=== PATIENT | female | born 1975 | race Caucasian/White ===

== ENCOUNTER 2019-03-18 06:15 | Day surgery (SDC) | payer OTHER, SELFPAY ==
[2019-03-18 06:30] VITALS: BP 102/68; PULSE 76; RESP 16; TEMP 36.6; O2SAT 100
[2019-03-18] MEDS: Lactated Ringers 1,000 ML 80 ML IV (06:55)
--- NOTE | 2019-03-18 07:32 | W.PM.DSUDISC ---
Discharge Plan Disposition Patient Disposition: HOME Condition: Good Discharge Details Reason For Visit: Fistulotomy, internal hemorrhoid banding Attending Provider: Tresa White Primary Care Provider: Lisa Pearl Home Meds and New Rx's Prescriptions: Continued betamethasone dipropionate 0.05 % cream 1 applic TP BID PRNRF: 0 levothyroxine [Synthroid] 50 mcg tablet 50 mcg PO DAILY RF: 0 buspirone 7.5 mg tablet 7.5 mg PO BID RF: 0 cholecalciferol (vitamin D3) 1,000 unit capsule 1,000 unit PO DAILY RF: 0 aripiprazole [Abilify] 5 mg tablet 5 mg PO HS RF: 0 sertraline [Zoloft] 50 mg tablet 50 mg PO HS RF: 0 Discharge Instructions Additional Instructions: An internal hemorrhoid was banded. There may be a small amount of bleeding when the tissue sloughs in a few days. Contact the surgeon office nurse practitioner for significant issues with bleeding. A fistula tunnel was opened. There is an open wound and then a small suture that encircles the sphincter muscle. This will stay in place for 4-6 weeks as the wound heals. Remove the packing tomorrow, then do a sitz bath and then repack with the strip of gauze provided. Keep a pad in your underwear as drainage is expected. Call for any concerns including fever, increased pain. Do not drive if on narcotic pain meds or if limited by pain. May use Tylenol alternating with ibuprofen for pain control. Ice is also an option. The maximum dose for Tylenol is 4000 mg/day. May use ibuprofen 800 mg every 8 hours as needed. If concerned about constipation, you may use a stool softener or milk of magnesia. Referrals: Tresa White MD [ [facility] STAFF PHYSICIAN] - (Return on 03/24 for a recheck) Activity:: Activity as Tolerated Shower/Bathe:: 24 hours Diet:: As Tolerated Discharge Orders Discharge Orders: Discharge Order (Routine); Ordered 03/18/19 Ordered By: Tresa White DS: Diagnosis Discharge Diagnosis (1) Anal fistula: Status: Acute (2) Internal hemorrhoids: Status: Acute
[2019-03-18] MEDS: Bupivacaine LIPOSOME/PF 133 MG/10 ML VIAL IJ (08:06)
[2019-03-18 08:50] VITALS: BP 98/61; PULSE 68; RESP 16; TEMP 36.3; O2SAT 100
[2019-03-18 09:50] VITALS: BP 110/70; PULSE 77; RESP 16; TEMP 36.5; O2SAT 100
--- NOTE | 2019-03-18 13:33 | ROE_ITS ---
DATE OF PROCEDURE: March 18, 2019 PREOPERATIVE DIAGNOSIS: 1. Possible anal fistula. 2. Internal hemorrhoid. POSTOPERATIVE DIAGNOSIS: 1. Anal fistula. 2. Internal hemorrhoid. PROCEDURE: 1. Anal exam under anesthesia. 2. Fistulotomy with Seton placement. 3. Internal hemorrhoid banding. SURGEON: Tresa White M.D. ANESTHESIA: Spinal and sedation. INDICATIONS: This is a 43-year-old woman who reports a perianal boil that will intermittently fill u p and drain about once a week. This has been ongoing since April. She also has a bothersome prola psing internal hemorrhoid. PROCEDURE: The patient was taken to the Operating Room and had a spinal anesthetic placed. She was then carefully positioned into the prone position and given IV sedation. The buttocks were taped for better exposure and the perianal region prepped with Betadine. She was then draped sterilely. Ther e was a small skin opening in the left lateral location that had almost healed over. Palpation inter gavin did not reveal any masses or abscesses. The anoscope was placed. A small lacrimal probe was i nserted into the external skin opening and easily passed internally to the dentate line, consistent w ith a fistula. This was fairly superficial externally. The spinal anesthetic had been tested and sh e had good anesthesia. The skin over the fistula probe was opened with cautery until the sphincter m echanism was reached. There was not a lot of sphincter involved, but as a precaution I did not divid e it. The sphincter was encircled with a #0 Vicryl, which was tied to create a Seton. The fistula t ract was only about 2 cm long. I sharply excised the chronic granulation and scar down to healthy fa t. This was packed with a 1/4-inch Iodoform. The patient did indeed have a quite large prolapsing h emorrhoid in the same vicinity. This was banded with the suction hemorrhoid occup therapist. I then injected 10 mg of Exparel around the fistulotomy incision and around the hemorrhoid banding site. There was good hemostasis. She tolerated the procedure well and was stable to recovery. cc: Zarina Portillo.
== END 2019-03-18 10:25 | disposition home or self-care (01) ==
PROVIDERS: PCP Physician Assistant Medical; Visit Provider Surgery
PROC: (CPT 46280; principal; 2019-03-18 07:30)
PROC: (CPT 46280; 2019-03-18 07:30)
DX: K60.3 Anal fistula (principal); K64.8 Other hemorrhoids; K58.9 Irritable bowel syndrome, unspecified
CPT/HCPCS: 46280; 46221; J2250

== ENCOUNTER 2019-10-01 21:46 | Outpatient (REF) | payer OTHER, SELFPAY ==
[2019-10-01 20:54] LABS: TSH 1.17 uIU/mL (0.36-3.74)
== END 2019-10-01 22:06 ==
LOC: NCHCN 21:46
PROVIDERS: PCP Physician Assistant Medical; Visit Provider Physician Assistant Medical
DX: E03.9 Hypothyroidism, unspecified (principal)
CPT/HCPCS: 84443

== ENCOUNTER 2020-02-10 00:49 | Outpatient (CLI) | payer OTHER, SELFPAY ==
--- NOTE | 2020-02-10 | DI.US_ITS ---
EXAM: US PELVIS TRANSVAGINAL CLINICAL HISTORY: IRREGULAR MENSTRUATION,N92.6 TECHNIQUE: Transabdominal and transvaginal imaging was performed using standard protocol. COMPARISON: No exams were available for comparison FINDINGS: KIDNEYS: Kidneys are symmetric in size. No evidence of renal calculi. No evidence of hydronephrosis. No renal mass or cyst identified. UTERUS: Anteverted. 11.6 x 4.6 x 7.4 cm. Endometrium: 2.7 cm. Heterogeneous. Myometrium: Unremarkable. Cervix: Unremarkable. OVARIES: Right: Cyst or mass: None. Left: Cyst or mass: None. Dominant follicle left ovary. DOPPLER: Color: Symmetric and uniform flow to both ovaries. No hyperemia. Duplex: Normal ovarian arterial waveforms visualized. CUL-DE-SAC: Free fluid: None. IMPRESSION: 1. Thickened heterogeneous endometrium.. 2. Unremarkable bilateral ovaries. DATA REPOSITORY:
== END 2020-02-10 01:09 ==
PROVIDERS: PCP Physician Assistant Medical; Visit Provider Nurse Practitioner Family
DX: N92.6 Irregular menstruation, unspecified (principal); R93.89 Abnormal findings on diagnostic imaging of other specified body structures
CPT/HCPCS: 76830; 76856

== ENCOUNTER 2020-03-01 14:37 | Outpatient (REF) | payer OTHER, SELFPAY ==
--- NOTE | 2020-03-01 13:55 | ENDO_PTH ---
PATIENT: Annette Hernández LOC: [facility] U#:[id number] AGE/SX: 44/F ROOM: RE03/01/[address]: Dereck Larose MD : 1975 BED: DIS: 03/01/2020 SPEC #: [id number] RECD: 03/01/20 15:21 STATUS: ARIANNA REQ #: [id number] PORTIA: 03/01/20 13:[address]: Dereck Larose DEPT: Surgical Specimen RECD BY: Mine Regalado ENTERED: 03/01/20 15:22 SP TYPE: Endo OTHR DR: Lisa Pearl Tissues: 1 - ENDOCERVICAL BX/CURRETTE Procedures: GROSS AND MICRO LEVEL 4 Comments: [id number]
== END 2020-03-01 14:57 ==
LOC: LBN 14:37
PROVIDERS: PCP Physician Assistant Medical; Visit Provider Obstetrics & Gynecology
DX: N93.9 Abnormal uterine and vaginal bleeding, unspecified (principal)
CPT/HCPCS: 88305

== ENCOUNTER 2020-05-03 10:32 | Outpatient (REF) | payer OTHER, SELFPAY ==
--- NOTE | 2020-05-03 09:30 | PAPFT_PTH ---
PATIENT: Annette Hernández LOC: [facility] U#:[id number] AGE/SX: 44/F ROOM: RE05/03/[address]: ARACELI Vidal : 1975 BED: DIS: 05/03/2020 SPEC #: [id number] RECD: 05/03/20 12:57 STATUS: ARIANNA REFlores #: [id number] PORTIA: 05/03/20 09:[address]: Nelly Dorman DEPT: [facility] Cytology RECD BY: Lizeth Arroyo ENTERED: 05/03/20 12:57 SP TYPE: PAPFT OTHR DR: Lisa Pearl Tissues: 1 - CX/ENDOCX FOR PAP SMEARS Procedures: PAP THIN PREP/UVM Screening HPV DNA PROBE Comments: [id number]
== END 2020-05-03 10:52 ==
LOC: LBN 10:32
PROVIDERS: PCP Physician Assistant Medical; Visit Provider Nurse Practitioner Family
DX: Z12.4 Encounter for screening for malignant neoplasm of cervix (principal); Z11.51 Encounter for screening for human papillomavirus (HPV)
CPT/HCPCS: 88142; 87624

== ENCOUNTER 2020-05-19 01:13 | Outpatient (CLI) | payer OTHER, SELFPAY ==
--- NOTE | 2020-05-19 08:15 | DI.US_ITS ---
EXAM: US PELVIS TRANSVAGINAL CLINICAL HISTORY: Abn vag bleeding, Pt had IUD inserted 03/22/20,N93.9,STRINGS NOT SEEN TECHNIQUE: Transabdominal and transvaginal imaging was performed using standard protocol. COMPARISON: No exams were available for comparison FINDINGS: KIDNEYS: Kidneys are symmetric in size. No evidence of renal calculi. No evidence of hydronephrosis. No renal mass or cyst identified. UTERUS: Anteverted. 11.4 x 5.1 x 6.0 cm. Endometrium: 12 millimeters in thickness. IUD is seen within the endometrium and appears appropriate ly positioned. Myometrium: Unremarkable. Cervix: Unremarkable. OVARIES: Right: Cyst or mass: None. Left: Cyst or mass: 1.7 centimeter dominant follicle DOPPLER: Color: Symmetric and uniform flow to both ovaries. No hyperemia. Duplex: Normal ovarian arterial waveforms visualized. CUL-DE-SAC: Free fluid: None. IMPRESSION: 1. Normal-appearing uterus with endometrial stripe within normal limits. IUD is seen within the endo metrial cavity. 2. Unremarkable bilateral ovaries. DATA REPOSITORY:
== END 2020-05-19 01:33 ==
PROVIDERS: PCP Physician Assistant Medical; Visit Provider Nurse Practitioner Family
DX: N93.9 Abnormal uterine and vaginal bleeding, unspecified (principal); Z97.5 Presence of (intrauterine) contraceptive device
CPT/HCPCS: 76830; 76856

== ENCOUNTER 2020-06-30 02:07 | Outpatient (CLI) | payer OTHER, SELFPAY ==
--- NOTE | 2020-06-30 11:45 | DI.MAMMO_ITS ---
EXAM: MG MAMMO SCREENING CLINICAL HISTORY: SCREENING, HEALTH MAINTENANCE, Z00.8 TECHNIQUE: Bilateral full field digital CC and MLO mammographic images were obtained with 3D tomosyn thesis and utilizing computer aided detection (CAD). COMPARISON: Available for comparison. FINDINGS: Masses/Architectural Distortion: None seen. Microcalcifications: No suspicious pleomorphic-type are seen. Skin Thickening/Nipple Retraction: None. IMPRESSION: 1. No significant interval change with no specific features of malignancy noted. 2. Unless there is more urgent need, screening mammography is recommended, as per [employer] guidelines. BI-RADS Category 1 - Negative Breast Density - Category D - Extremely dense Breast density category C or D implies that the patient has dense breast tissue. Dense breast tissue is very common and is not abnormal but dense breast tissue can make it harder to find cancer on a ma mmogram. Also, dense breast tissue may increase their breast cancer risk. This information about the result of the mammogram report was provided to the patient to raise their awareness. Use this report when you speak with the patient about their risks for breast cancer, which includes their family hist ory. At that time, you may recommend for more screening tests (Ultrasound or MRI) as they might be us eful based on their risk. A negative radiographic report should not delay biopsy if a dominant or clinically suspicious mass is present. Up to ten percent of cancers are not identified on mammography. A negative report may reinforce clinical impression. Adenosis and dense breasts may obscure an underlying neoplasm. False positive reports average 6 to 10%. Patient will receive a letter notifying them of these results.
== END 2020-06-30 02:27 ==
PROVIDERS: PCP Physician Assistant Medical; Visit Provider Physician Assistant Medical
DX: Z00.00 Encounter for general adult medical examination without abnormal findings (principal); Z12.31 Encounter for screening mammogram for malignant neoplasm of breast
CPT/HCPCS: 77063; 77067

== ENCOUNTER 2020-09-08 08:24 | Outpatient (REF) | payer OTHER, SELFPAY ==
[2020-09-08 16:31] LABS: Anion Gap 10.1 mmol/L (3-11); BUN 21 mg/dL (7-18); CO2 25.9 mmol/L (21.0-32.0); CREATININE 0.9 mg/dL (0.55-1.02); Calcium 8.9 mg/dL (8.5-10.1); Calculated LDL 126 mg/dL (<100); Chloride 107 mmol/L (98-107); Cholesterol 195 mg/dL (<200); Glucose 84 mg/dL (74-106); HDL Cholesterol 64 mg/dL (40-60); Potassium 4.2 mmol/L (3.5-5.1); Sodium 143 mmol/L (136-145); TSH 1.06 uIU/mL (0.36-3.74); Triglyceride 25 mg/dL (<150)
== END 2020-09-08 08:25 | disposition home or self-care (01) ==
LOC: NCHCN 08:24
PROVIDERS: PCP Physician Assistant Medical; Visit Provider Physician Assistant Medical
DX: Z00.00 Encounter for general adult medical examination without abnormal findings (principal); E03.9 Hypothyroidism, unspecified; Z13.220 Encounter for screening for lipoid disorders; Z13.228 Encounter for screening for other metabolic disorders
CPT/HCPCS: 80048; 80061; 84443

== ENCOUNTER 2020-10-29 08:34 | Outpatient (REF) | payer OTHER, SELFPAY ==
[2020-10-29 21:14] LABS: Iron 126 ug/dL (50-170)
[2020-10-29 21:40] LABS: Vitamin D 25 Total 53.1 ng/mL (30-100)
[2020-10-29 21:41] LABS: Folate > 20.0 ng/mL (8.6-20.0); Vitamin B12 701 pg/mL (193-986)
== END 2020-10-29 08:35 | disposition home or self-care (01) ==
LOC: NCHCN 08:34
PROVIDERS: PCP Physician Assistant Medical; Visit Provider Nurse Practitioner Family
DX: K14.6 Glossodynia (principal); K14.8 Other diseases of tongue; R79.0 Abnormal level of blood mineral; E55.9 Vitamin D deficiency, unspecified
CPT/HCPCS: 82306; 82607; 82746; 83540

== ENCOUNTER 2021-07-13 15:18 | Outpatient (REF) | payer OTHER, SELFPAY ==
[2021-07-13 20:36] LABS: Creatine Kinase 86 U/L (26-192); TSH 1.03 uIU/mL (0.36-3.74)
== END 2021-07-13 15:19 | disposition home or self-care (01) ==
LOC: NCHCN 15:18
PROVIDERS: PCP Physician Assistant Medical; Visit Provider Physician Assistant Medical
DX: E03.9 Hypothyroidism, unspecified (principal); M79.631 Pain in right forearm
CPT/HCPCS: 82550; 84443

== ENCOUNTER 2021-08-11 01:13 | Outpatient (CLI) | payer OTHER, SELFPAY ==
--- NOTE | 2021-08-11 | DI.US_ITS ---
Exam(s) US THYROID EXAM: US THYROID CLINICAL HISTORY: MULTIPLE THYROID NODULES E04.2. TECHNIQUE: Ultrasound thyroid performed using standard protocol. COMPARISON: There are no previous exams available at the time of this interpretation FINDINGS: RIGHT THYROID LOBE: Measures 2.1 cm AP x 2.1 cm wide x 4.8 cm craniocaudal The right lobe is almost entirely occupied by a mixed solid-cystic nodule described below: Nodule #1 Size: Measures 2 x 2 x 3.6 cm Composition: Mixed cystic-solid = 1 point Echogenicity: Isoechoic= 1 point Shape: Not truly taller than wider in the transverse plane= therefore 0 points Margin: Smooth- 0 points Echogenic Foci: None= 0 points Total Points for this nodule: 2 ACR Ti-Rads Category: TR2 ISTHMUS: Normal thickness. There are no nodules in the isthmus. LEFT THYROID LOBE: Measures 1.5 cm AP x 1.5 wide x 2.6 cm craniocaudal The left thyroid lobe is smaller than the right. However, in similar fashion it is almost completely occupied by a similar appearing mixed solid-cystic nodule, as described below: Nodule #1 Size: Measures 1.2 x 1.2 x 2.0 cm Composition: Mixed zoarv-ujoglq-1 points Echogenicity: Isoechoic-1 points Shape: Not truly taller than wider in the transverse plane-0 points Margin: Smooth-0 points Echogenic Foci: None-0 points Total points for this nodule: 2 ACR Ti-Rads Category: 2 LYMPH NODES: There is no significant adenopathy. IMPRESSION: 1. Similar-appearing solid-cystic nodule in both lobes as described above. Both are classified as Ti Rads-2 and therefore do not require ultrasound-guided FNA at this time. Recommend comparison to prior outside ultrasound examinations. 2. There is no significant lymphadenopathy. DATA REPOSITORY:
--- NOTE | 2021-08-11 12:40 | DI.MAMMO_ITS ---
Exam(s) MAMMO SCREENING EXAM: MAMMO SCREENING CLINICAL HISTORY: SCREENING FOR BREAST CANCER Z12.31 FAM HX Z80.3. TECHNIQUE: Bilateral full field digital CC and MLO mammographic images were obtained with 3D tomosyn thesis and utilizing computer aided detection (CAD). COMPARISON: Prior mammograms were reviewed, the most recent being June 2020. Significant family history. Her mother was diagnosed with breast cancer postmenopausal. FINDINGS: Fibroglandular tissue pattern is again noted be dense, this somewhat decreasing the sensitivity of th e mammogram for finding hidden underlying lesions. There are no new spiculated masses evident. Asymmetric density right breast approximately 12 o'clock position seen on 3D cc imaging is unchanged from prior studies. Numerous benign-appearing microcalcifications are again noted in both breasts. There are no new malignant-appearing microcalcification groups in either breast. There is no significant architectural distortion nor skin thickening-retraction. IMPRESSION: Very dense bilateral fibroglandular tissue. Stable benign-appearing findings. No obvious radiograph ic evidence of malignancy. BI-RADS Category 2 - Benign Findings Breast Density - Category D - Extremely dense Breast density Category C or D implies that the patient has dense breast tissue. Dense breast tissue can make it harder to find cancer on a mammogram. Dense breast tissue is also associated with an incr eased risk of breast cancer. This information about the result of the mammogram report was provided to the patient to raise their awareness. Use this report when you speak with the patient about their risks for breast cancer, which includes their family history. At that time, you may recommend additional screening tests (Ultrasoun d or MRI) as these tests may add significant information. A negative radiographic report should not delay biopsy if a dominant or clinically suspicious mass is present. Up to ten percent of cancers are not identified on mammography. A negative report may reinforce clinical impression. Adenosis and dense breasts may obscure an underlying neoplasm. False positive reports average 6 to 10%. Patient will receive a letter notifying them of these results.
== END 2021-08-11 01:33 ==
PROVIDERS: PCP Physician Assistant Medical; Visit Provider Physician Assistant Medical
DX: Z12.31 Encounter for screening mammogram for malignant neoplasm of breast (principal); Z80.3 Family history of malignant neoplasm of breast; N60.81 Other benign mammary dysplasias of right breast; N60.82 Other benign mammary dysplasias of left breast; E04.2 Nontoxic multinodular goiter
CPT/HCPCS: 77063; 77067; 76536

== ENCOUNTER 2022-04-12 15:03 | Outpatient (REF) | payer OTHER, SELFPAY ==
[2022-04-12 19:55] LABS: Abs Immature Grans 0.01 10^3/uL (0.0-0.06); Absolute Basophil Count 0.03 10^3/uL (0.0-0.2); Absolute Eosinophil Count 0.12 10^3/uL (0.0-0.7); Absolute Lymphocyte Count 2.09 10^3/uL (1.2-3.4); Absolute Monocyte Count 0.27 10^3/uL (0.1-0.8); Absolute Neutrophil Count 3.18 10^3/uL (1.2-6.7); Basophils % 0.5; Eosinophils % 2.1; Immature Grans % 0.2; Lymphocytes % 36.7; MCH 30.3 pg (27.0-33.0); MCHC 34.1 % (32.0-36.0); MCV 89 fL (80-95); MPV 10.9 fL (8.0-11.0); Monocytes % 4.7; Neutrophils % 55.8; Platelet Count 206 10^3/uL (130-400); RBC 4.62 10^6/uL (3.93-5.22); RDW 12.1 % (11.7-14.6); RDW-SD 39.4 fL
[2022-04-12 20:11] LABS: ALT 24 U/L (14-59); AST 27 U/L (15-37); Albumin 3.9 g/dL (3.4-5.0); Alkaline Phosphatase 80 U/L (46-116); Anion Gap 7.8 mmol/L (3-11); BUN 20 mg/dL (7-18); Bilirubin, Total 0.4 mg/dL (0.2-1.0); CO2 27.2 mmol/L (21.0-32.0); CREATININE 0.9 mg/dL (0.55-1.02); Calcium 8.8 mg/dL (8.5-10.1); Chloride 105 mmol/L (98-107); Estimated GFR 78.86 (mL/min/1.73m2); Glucose 169 mg/dL (74-106); Potassium 3.4 mmol/L (3.5-5.1); Sodium 140 mmol/L (136-145); Total Protein 7.2 g/dL (6.4-8.2)
== END 2022-04-12 15:04 | disposition home or self-care (01) ==
LOC: NCHCN 15:03
PROVIDERS: PCP Physician Assistant Medical; Visit Provider Physician Assistant Medical
DX: M25.512 Pain in left shoulder (principal); E03.9 Hypothyroidism, unspecified
CPT/HCPCS: 80053; 85025

== ENCOUNTER 2022-07-25 15:45 | Outpatient (REF) | payer OTHER, SELFPAY ==
[2022-07-25 18:49] LABS: Hemoglobin A1C 5.5 % (<5.7)
[2022-07-25 19:00] LABS: Anion Gap 10.8 mmol/L (3-11); BUN 19 mg/dL (7-18); CO2 26.2 mmol/L (21.0-32.0); CREATININE 0.9 mg/dL (0.55-1.02); Calcium 8.8 mg/dL (8.5-10.1); Calculated LDL 128 mg/dL (<100); Chloride 109 mmol/L (98-107); Cholesterol 204 mg/dL (<200); Estimated GFR 78.37 (mL/min/1.73m2); Glucose 105 mg/dL (74-106); HDL Cholesterol 57 mg/dL (40-60); Potassium 3.6 mmol/L (3.5-5.1); Sodium 146 mmol/L (136-145); TSH 1.22 uIU/mL (0.36-3.74); Triglyceride 96 mg/dL (<150)
== END 2022-07-25 15:46 | disposition home or self-care (01) ==
LOC: NCHCN 15:45
PROVIDERS: PCP Physician Assistant Medical; Visit Provider Physician Assistant Medical
DX: R73.9 Hyperglycemia, unspecified (principal); Z00.00 Encounter for general adult medical examination without abnormal findings; Z13.220 Encounter for screening for lipoid disorders; E03.9 Hypothyroidism, unspecified
CPT/HCPCS: 80048; 80061; 83036; 84443

== ENCOUNTER 2022-08-14 00:36 | Outpatient (CLI) | payer OTHER, SELFPAY ==
--- NOTE | 2022-08-14 | DI.MAMMO_ITS ---
Exam(s) MAMMO SCREENING EXAM: MAMMO SCREENING CLINICAL HISTORY: SCREENING MAMMO FOR BREAST CANCER Z12.31 TECHNIQUE: Bilateral full field digital CC and MLO mammographic images were obtained with 3D tomosyn thesis and utilizing computer aided detection (CAD). COMPARISON: Available for comparison. FINDINGS: Masses/Architectural Distortion: None seen. Microcalcifications: No suspicious pleomorphic-type are seen. Benign type calcifications are seen in both breasts. These appear stable. Skin Thickening/Nipple Retraction: None. IMPRESSION: 1. No significant interval change with no specific features of malignancy noted. 2. Unless there is more urgent need, screening mammography is recommended, as per [place] guidelines. BI-RADS Category 2 - Benign Findings Breast Density - Category D - Extremely dense Breast density category C or D implies that the patient has dense breast tissue. Dense breast tissue is very common and is not abnormal but dense breast tissue can make it harder to find cancer on a ma mmogram. Also, dense breast tissue may increase their breast cancer risk. This information about the result of the mammogram report was provided to the patient to raise their awareness. Use this report when you speak with the patient about their risks for breast cancer, which includes their family hist ory. At that time, you may recommend for more screening tests (Ultrasound or MRI) as they might be us eful based on their risk. A negative radiographic report should not delay biopsy if a dominant or clinically suspicious mass is present. Up to ten percent of cancers are not identified on mammography. A negative report may reinforce clinical impression. Adenosis and dense breasts may obscure an underlying neoplasm. False positive reports average 6 to 10%. Patient will receive a letter notifying them of these results.
== END 2022-08-14 00:56 ==
LOC: DI 00:36
PROVIDERS: PCP Physician Assistant Medical; Visit Provider Physician Assistant Medical
DX: Z12.31 Encounter for screening mammogram for malignant neoplasm of breast (principal)
CPT/HCPCS: 77063; 77067

== ENCOUNTER 2022-12-06 06:13 | Day surgery (SDC) | payer OTHER, SELFPAY ==
[2022-12-06 06:27] VITALS: BP 109/78; PULSE 65; RESP 18; TEMP 36.4; O2SAT 99
--- NOTE | 2022-12-06 07:16 | W.PM.DSUDISC ---
Date of service: 12/06/22 Time of Service: 07:17 Discharge Plan Disposition Patient Disposition: Home Condition: Good Discharge Details Reason For Visit: LMF trigger release Attending Provider: Tan Arthur Primary Care Provider: Lisa Pearl Home Meds and New Rx's Prescriptions: New acetaminophen 500 mg tablet 1,000 mg PO TID Qty: 90 0RF ibuprofen 600 mg tablet 600 mg PO TID PRN (Reason: pain) Qty: 90 0RF Continued levothyroxine [Synthroid] 50 mcg tablet 50 mcg PO DAILY buspirone 7.5 mg tablet 7.5 mg PO BID cholecalciferol (vitamin D3) 1,000 unit capsule 1,000 unit PO DAILY sertraline [Zoloft] 50 mg tablet 50 mg PO HS Mirena 21 mcg/24 hours (8 yrs) 52 mg intrauterine device 1 device intrauterine ONCE Rx Instructions: as a single dose trazodone 50 mg tablet 25 mg PO QHS PRN (Reason: sleep) Qty: 1 0RF Discharge Instructions Stand Alone Forms: Sandhya Small Finger Dean Activity:: Activity as Tolerated Remove Dressings/Wound Care:: 48 hours Shower/Bathe:: 48 hours Diet:: As Tolerated Discharge Orders Discharge Orders: Discharge Order (Routine); Ordered 12/06/22 Ordered By: Remy Joy
[2022-12-06] MEDS: Sodium Bicarbonate 50 MEQ/50 ML VIAL (07:29)
[2022-12-06] MEDS: Lidocaine 1% Pres-Free W/EPI 1/200,000 30 ML VIAL (07:29)
[2022-12-06 08:00] VITALS: BP 112/76; PULSE 68; RESP 18; TEMP 36.3; O2SAT 98
--- NOTE | 2022-12-06 16:52 | ROE_ITS ---
Date of service: 12/06/22 Time of Service: 07:45 Operative Note Operative Note DATE OF PROCEDURE: 12/06/22 PRE-OP DIAGNOSIS: Left Middle Finger Trigger Finger POST-OP DIAGNOSIS: same PROCEDURE: Trigger Finger Release - Left Middle Finger SURGEON: Tan Arthur ANESTHESIA TYPE: Local By Surgeon Refer to Anesthesia Record ESTIMATED BLOOD LOSS: 0 PATHOLOGY: none sent COMPLICATIONS: None Patient was transported to: same day Patient's condition: stable Indications: I have seen Annette in clinic for symptoms of a trigger finger. The catching, c licking, locking, and pain limited function. The diagnosis of trigger finger was evident. The symptoms had not responded to conservative measures. I discussed trigger finger release with the patient. I reviewed the risks of the procedure to include, but not limited to, bleeding, infection, pain, stiffness, incomplete release, damage to nerves or vessels, continued catching, recurrence. Despite these risks, the patient elected to proceed. Findings: There was a tightened A1 ken which was released. The flexor tendons were inspected and the patient was able to move the finger without any catching, clicking, or locking. Procedure Description: Annette was greeted in the preoperative holding area where the correct side was identified and marked. The consent was reviewed with the patient and signed. All questions were answered. Annette was taken back to the operating room. The patient was placed into the supine position on the operating room table with the left arm on an arm board. All bony prominences were well padded. No prophylactic antibiotics were administered since this was a clean, elective hand surgical case. The left arm was then prepped with Chloraprep and draped in a standard fashion with stockinette and extremity drape. A timeout to confirm correct identity, side a nd site, procedure, allergies, anesthesia, and medical concerns was performed. The surgical site was marked as an incision in the distal palmar crease over the A1 ken of the involved digit. This was confirmed with palpation during finger flexion. This area, overlying the metacarpal head, was then anesthetized with 1% Lidocaine with Epinephrine and buffered with sodium bicarbonate. The patient tolerated this well and once the anesthetic had setup, the procedure began. A longitudinal incision was made through skin only, approximately 1cm. The deep tissues were dissected bluntly. Once the A1 ken and flexor tendons were identified the soft tissue including neurovascular structures were retracted medially and laterally. There were no crossing structures over the A1 ken. The proximal edge of the ken was identified and the ken was incised with tenotomy scissors. There was a release of the tendons once this was fully released. The tendons were then removed from the wound and inspected. Excess synovium was resected. The tendons were then returned and the patient was asked to move the finger into deep flexion and back to extension. There was no recreation of the pre-operative symptoms. The hand was then once more inspected for any A0 ken or area of possible constriction. The wound was then irrigated and the skin was closed with a 4-0 Nylon. This was dressed with gauze and a Conform dressing. The patient tolerated the procedure well and was returned to the Same Day Surgery area in a stable condition suffering no known complication.
== END 2022-12-06 08:10 | disposition home or self-care (01) ==
PROVIDERS: PCP Physician Assistant Medical; Visit Provider Student in an Organized Health Care Education/Training Program
PROC: (CPT 26055; principal; 2022-12-06 07:30)
DX: M65.352 Trigger finger, left little finger (principal)
CPT/HCPCS: 26055

== ENCOUNTER → 2023-05-08 02:07 | Outpatient (CLI) | payer OTHER, SELFPAY ==
--- NOTE | 2023-05-08 | DI.RAD_ITS ---
Exam(s) XR HAND RT COMPLETE EXAM: XR HAND RT COMPLETE CLINICAL HISTORY: MULTIPLE JOINT PAIN,M25.50. TECHNIQUE: 2D digital imaging was performed. Three views. COMPARISON: No exams were available for comparison FINDINGS: BONES: No acute fracture is present. Lucent lesion in distal phalanx of index finger is consistent w ith an enchondroma. JOINTS: No dislocation present. Minimal narrowing of the interphalangeal joints of the fingers and mi nimal periarticular spurring. SOFT TISSUE: Normal. IMPRESSION: Mild degenerative changes of the interphalangeal joints. Benign enchondroma in the distal phalanx of the index finger. DATA REPOSITORY: RADIATION DOSE DELIVERED:
--- NOTE | 2023-05-08 | DI.RAD_ITS ---
Exam(s) XR FOOT LT COMPLETE EXAM: XR FOOT LT COMPLETE CLINICAL HISTORY: MULTIPLE JOINT PAIN, M25.50. TECHNIQUE: 2D digital imaging was performed. Three views. COMPARISON: CR XR FOOT RT COMPLETE from 05/08/2023 FINDINGS: BONES: No acute fracture is present. No bony destructive lesion is seen. Bones are normally mineral ized JOINTS: No dislocation present. No significant degenerative changes. SOFT TISSUE: Normal. IMPRESSION: Unremarkable radiographs of the left foot. DATA REPOSITORY: RADIATION DOSE DELIVERED:
--- NOTE | 2023-05-08 | DI.RAD_ITS ---
Exam(s) XR FOOT RT COMPLETE EXAM: XR FOOT RT COMPLETE CLINICAL HISTORY: MULTIPLE JOINT PAIN, M25.50. TECHNIQUE: 2D digital imaging was performed. Three views. COMPARISON: No exams were available for comparison FINDINGS: BONES: No acute fracture is present. No bony destructive lesion is seen. Bones are normally minerali zed. JOINTS: No dislocation present. No significant degenerative changes. SOFT TISSUE: Normal. IMPRESSION: Unremarkable radiographs of the right foot. DATA REPOSITORY: RADIATION DOSE DELIVERED:
--- NOTE | 2023-05-08 | DI.RAD_ITS ---
Exam(s) XR HAND LT COMPLETE EXAM: XR HAND LT COMPLETE CLINICAL HISTORY: MULTIPLE JOINT PAIN, M25.50. TECHNIQUE: 2D digital imaging was performed. Three views. COMPARISON: CR XR HAND RT COMPLETE from 05/08/2023 FINDINGS: BONES: No acute fracture is present. No bony destructive lesion is seen. Bones are normally minerali zed. JOINTS: No dislocation present. Mild joint space narrowing of the interphalangeal joints of the fin gers with mild periarticular spurring. SOFT TISSUE: Normal. IMPRESSION: Mild degenerative changes of the interphalangeal joints of the fingers. DATA REPOSITORY: RADIATION DOSE DELIVERED:
== END ==
PROVIDERS: PCP Physician Assistant Medical; Visit Provider Physician Assistant Medical
DX: M19.042 Primary osteoarthritis, left hand (principal)
CPT/HCPCS: 73130; 73630

== ENCOUNTER 2023-05-11 01:20 | Outpatient (CLI) | payer OTHER, SELFPAY ==
[2023-05-11 11:35] LABS: ESR 2 mm/hr (0-20)
[2023-05-11 12:00] LABS: C-Reactive Protein 0.07 mg/dL (0.0-0.3)
[2023-05-11 18:36] LABS: Rheumatoid Factor <8.6 IU/mL (<12.0)
[2023-05-14 15:05] LABS: HLA-B27 Result Negative
== END 2023-05-11 01:21 | disposition home or self-care (01) ==
LOC: LBO 01:21
PROVIDERS: PCP Physician Assistant Medical; Visit Provider Physician Assistant Medical
DX: M25.50 Pain in unspecified joint (principal)
CPT/HCPCS: 36415; 85652; 86812; 86140; 86431

== ENCOUNTER 2023-06-08 02:39 | Outpatient (CLI) | payer OTHER, SELFPAY ==
[2023-06-11 09:22] LABS: HBs Antibody, Quant <3.1 mIU/mL (See Note); Hepatitis B Surface Ab Negative (See Note)
[2023-06-11 10:40] LABS: Measles IgG Antibody Negative (See Note); Mumps Antibody IgG Negative (See Note)
[2023-06-11 10:43] LABS: Rubella IgG Ab (UVM) Positive (See Note)
[2023-06-11 12:42] LABS: Varicella IgG Antibody Equivocal (See Note)
[2023-06-11 13:44] LABS: TB Interpretation Negative (Negative)
== END 2023-06-08 02:40 | disposition home or self-care (01) ==
LOC: LBO 02:39
PROVIDERS: PCP Physician Assistant Medical; Visit Provider Nurse Practitioner Family
DX: Z02.1 Encounter for pre-employment examination (principal)
CPT/HCPCS: 36415; 86706; 86787; 86480; 86735; 86762; 86765

== ENCOUNTER 2023-09-06 13:57 | Outpatient (REF) | payer OTHER, SELFPAY ==
[2023-09-05 21:10] LABS: Hemoglobin A1C 5.5 % (<5.7)
== END 2023-09-06 13:58 | disposition home or self-care (01) ==
LOC: NCHCN 13:57
PROVIDERS: PCP Physician Assistant Medical; Visit Provider Physician Assistant Medical
DX: Z13.1 Encounter for screening for diabetes mellitus (principal); E03.9 Hypothyroidism, unspecified
CPT/HCPCS: 83036; 84443

== ENCOUNTER → 2023-09-18 00:15 | Outpatient (CLI) | payer OTHER, SELFPAY ==
--- NOTE | 2023-09-18 | DI.MAMMO_ITS ---
Exam(s) MAMMO SCREENING EXAM: MAMMO SCREENING CLINICAL HISTORY: SCREENING, Z12.31 TECHNIQUE: Bilateral full field digital CC and MLO mammographic images were obtained with 3D tomosyn thesis and utilizing computer aided detection (CAD). COMPARISON: Available for comparison. FINDINGS: Masses/Architectural Distortion: None seen. Microcalcifications: No suspicious pleomorphic-type are seen. Stable benign type calcifications are s een in both breasts. Skin Thickening/Nipple Retraction: None. IMPRESSION: 1. No significant interval change with no specific features of malignancy noted. 2. Unless there is more urgent need, screening mammography is recommended, as per [employer] guidelines. BI-RADS Category 2 - Benign Findings Breast Density - Category C - Heterogeneously dense Breast density category C or D implies that the patient has dense breast tissue. Dense breast tissue is very common and is not abnormal but dense breast tissue can make it harder to find cancer on a ma mmogram. Also, dense breast tissue may increase their breast cancer risk. This information about the result of the mammogram report was provided to the patient to raise their awareness. Use this report when you speak with the patient about their risks for breast cancer, which includes their family hist ory. At that time, you may recommend for more screening tests (Ultrasound or MRI) as they might be us eful based on their risk. A negative radiographic report should not delay biopsy if a dominant or clinically suspicious mass is present. Up to ten percent of cancers are not identified on mammography. A negative report may reinforce clinical impression. Adenosis and dense breasts may obscure an underlying neoplasm. False positive reports average 6 to 10%. Patient will receive a letter notifying them of these results.
== END ==
PROVIDERS: PCP Physician Assistant Medical; Visit Provider Physician Assistant Medical
DX: Z12.31 Encounter for screening mammogram for malignant neoplasm of breast (principal)
CPT/HCPCS: 77063; 77067

== ENCOUNTER 2024-05-20 16:46 | Outpatient (REF) | payer OTHER, SELFPAY ==
--- OUTSIDE RECORDS SUMMARY | 2024-05-20 16:52 | XMS_ITS | Encounter Summary ---
Author Organization [facility] Address [facility] [place] [address] Care Team Providers Care Web Production Assistant Name Role Phone Lisa Pearl Primary Care Provider [phone] Reason for Visit * Auth/Cert Specialty Diagnoses / Procedures Referred By Kane alejandre Referred To Contact Diagnoses fistula in anal Procedures PRO SURG DIAGNOSTIC EXAM, ANORECTAL PRO PLACEMENT, SETON ANORECTAL EXAM, REQUIRING ANESTHESIA, DIAGNOSTIC (WRVU 1.8) ANAL SETON PLACEMENT (WRVU 3) Referral ID Status Reason Start Date Expiration Date Visits Re quested Visits Authorized [id number] 1 1 Encounter Details Date Type Department Care Team (Latest Contact Info) Description 10/31/2019 7:02 AM EDT - 10/31/2019 11:32 AM EDT Hospital Encounter [place] [address] Tan Solorio MD [facility] [place] [address] Discharge Disposition: Home Social History Tobacco Use Types Packs/Day Years Used Date Smoking Tobacco: Never Smokeless Tobacco: Never Sex and Gender Information Value Date Recorded Sex Assigned at Not on file Gender Identity Not on file Sexual Orientation Not on file documented as of this encounter Last Filed Vital Signs Vital Sign Reading Time Taken Comments Blood Pressure 95/66 10/31/2019 10:15 AM EDT Pulse 79 10/31/2019 9:26 AM EDT Temperature 36.3 ??C (97.3 ??F) 10/31/2019 9:26 AM ED T Respiratory Rate 16 10/31/2019 10:15 AM EDT Oxygen Saturation 100% 10/31/2019 10:15 AM EDT Inhaled Oxygen Concentration - - Weight 51.3 kg (113 lb 3.2 oz) 10/31/2019 7:18 A M EDT Height 152.4 cm (5') 10/31/2019 7:18 AM EDT Body Mass Index 22.11 10/31/2019 7:18 AM EDT documented in this encounter Discharge Instructions * Discharge Instructions* Kam Townsend RN - 10/31/2019 9:50 AM EDT POST ANESTHESIA INSTRUCTIONS Go home, rest, use caution on stairs. Change positions slowly. Do not smoke if you are alone. Diet light to regular as tolerated today. If nausea occurs start with clear liquids and progress slowly. No driving, operating machinery, alcoholic beverages and no important decisions for 24 hours. Monitor IV site for signs and symptoms of infection: increasing redness, swelling, foul drainage, if occurs contact M.D. Patients who have had endotrachial tubes (this tube, used by anesthesia department, is passed down your throat after you are asleep, to ensure safe air passage during your operation). A sore throat is normal due to the tube. Cold liquids or soothing lozenges will help ease the discomfort. The generalized muscle aches are due to the medication given to you just before the tube is inserted. As the medication wears off, you may develop muscle soreness, which usually goes away in 12-24 hours. * Patient Instructions* Dereck Tomlinson PA - 10/31/2019 8:39 AM EDT DIVISION OF COLON & RECTAL SURGERY Anorectal Surgery Patient Post-operative Discharge Instructions 1. Wound Care ?? If there is a dressing, please leave the dressing intact today and remove it tomorrow morning. If you need to move your bowels, the dressing may be removed sooner. ?? Expect some drainage - this may be residual pus, or may be a small amount of blood or mucus - this is normal / expected. It may last for a 2-3 weeks. ?? Please use fluffy 4x4 gauze to absorb any drainage and keep your bottom dry. ?? You may have some packing your wound that you should remove in the sitz bath tomorrow morning. ?? Please use a sitz bath or shower 3 - 4X per day (starting tomorrow morning). ?? Sitz bath instructions: Soak your buttocks in plain warm tapwater for 15 minutes 4X/day and after bowel movements. This is comforting and also increase blood flow to the area to aid in healing. ?? You may sit on a pillow but do not sit on donut cushions as it spreads the buttocks. 2. Pain medications ?? A local anesthestic numbing block was performed during your procedure for postoperative pain control. ?? Please take [id number] pain medications for post-operative discomfort. ?? Acetaminophen (Tylenol) 1000 mg by mouth every 6 hours. ?? Ibuprofen (Motrin/Advil) 600 mg by mouth every 6 hours with food & plenty of liquids or Naproxen (Aleve) 500 mg twice daily. Take either Ibuprofen or Naproxen not both. ?? You may alternate these medications every 3 hours; ex. Tylenol at 12pm, Ibuprofen at 3pm, Tylenol at 6pm, Ibuprofen at 9 pm. ?? In addition, if your pain is uncontrolled with the medications above, please use prescribed narcotic pain medication if given to you. As you use less pain medication, narcotics should be the firstto eliminate. ?? Narcotic pain medication is known to cause constipation. 3. Avoid getting constipated ?? Drink plenty of water and fluids (over 2 liters per day). ?? Each morning please take a daily fiber supplement (such as Citrucel or BeneFiber), one heaping tablespoon in 8 oz. of water. (MiraLax may be recommended instead of fiber) ?? While taking narcotic pain medications please also take a stool softener (Colace 100 mg two to three times per day), which can be purchased over the counter. ?? If you do not have a bowel movement in 48 hours then take 60 cc of Milk of Magnesia every 12 hours until you have a bowel movement. If you do not have a bowel movement after 2 doses of Milk of Magnesia please call (see below). 4. When to call ?? Fever > 101.5 F ?? worsening pain ?? active bleeding, passing blood clots ?? difficulty/inability to pass urine (urinary retention) or stool (constipation) ?? any other worrisome condition or question ?? during regular work hours call the Surgery Clinic at ?? after hours / nights / weekends / holidays: call and ask for the General Surgery Resident doctor On-Call. ?? Follow-up. You will have a post-operative follow-up appointment with your Surgical Team scheduled, usually in 2 - 4 weeks. If you have any questions, please call . Division of Colon and Rectal Surgery, [facility] [address] ??? [place] [id number] ??? documented in this encounter Medications at Time of Discharge Medication Sig Dispensed Refills Start Date End Date sertraline (Zoloft) 50 mg Tablet Take 50 mg by mouth daily. cholecalciferol, Vitamin D3, 1,000 unit Tablet Take 1,000 Units by mouth daily. ARIPiprazole (ABILIFY) 2 mg Tablet Take 5 mg by mouth daily. levothyroxine (SYNTHROID) 50 mcg Tablet take 1 tablet by mouth once daily 90 tablet 3 02/01/2016 busPIRone (BUSPAR) 5 mg Tablet Take 5 mg by mouth 2 times daily. 1 10/21/2014 BETAMETHASONE DIPROPIONATE TOP 08/12/2009 documented as of this encounter Progress Notes * Kam Townsend RN - 10/31/2019 9:39 AM EDT Assumed care of pt. On arrival to [facility] recovery VSS, pt on simple mask @ 5 L. O2 sats 100%. IV top of left hand, 20ga, infusing without difficulty. Will continue to monitor pt. documented in this encounter H&P Notes * Dereck Tomlinson PA - 10/31/2019 7:24 AM EDT Patient Name: Annette Hernández Patient Age: 44 y.o. Birthdate: 1975 Admit date: 10/31/2019 Attending Physician: Tan Solorio MD Annette Hernández is a 44 y.o. female with an perianal fistula. She is here for EUA, possible seton placement, possible fistulotomy. Heart: RRR Lungs: CTAB. The patient's history and physical exam have been reviewed and completed. There has been no interval change from that of the pre-operative history and physical exam done within the last 30 days. This procedure has been fully reviewed with the patient and written informed consent has been obtained. Dereck Tomlinson PA-C, [facility] Division of Colon and Rectal Surgery [facility] Pager [phone] documented in this encounter Miscellaneous Notes * Op Note - Tan Solorio MD - 10/31/2019 9:15 AM EDT [facility] Operative Note Patient Name: Annette Hernández : [id number] MR#: [id number] Case Date: 10/31/2019 Surgeon: Surgeon(s) and Role: * Tan Solorio MD - Primary * Dereck Tomlinson PA - Physician Muffler Tender Preoperative diagnosis: fistula in anal Postoperative diagnosis: fistula in anal Procedure(s) (LRB): ANAL FISTULA (FISTULECTOMY\FISTULOTOMY), SUBMUSCULAR (WRVU 5.42) (N/A) Anesthesia: General Estimated Blood Loss: * No values recorded between 10/31/2019 8:59 AM and 10/31/2019 9:06 AM * Specimens removed during surgery: Order Name Source Comment Collection Info Order Time SPECIMEN TO PATHOLOGY fistula in anal maegan-anal skin tag excision No 10/31/2019 9:07 AM Time specimen removed from patient: 9:03 AM Number of tissue samples (in container) 1 Biospecimen to store? No Drains: * No LDAs found * Surgical Closure: Other Than Primary Closure - superficial layers are left completely open during original surgery, deep layers completely closed Disposition: awakened from anesthesia, extubated and taken to the recovery room in a stable condition, having suffered no apparent untoward event. 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 Presents for examination under anesthesia, possible fistulotomy vs seton placement. The risks, benefits, and alternatives were discussed in detail including the risks of bleeding, infection, need for additional procedures, cardiac, pulmonary and renal complications. All of her questions were answered to her satisfaction and she agreed to proceed. Procedure Description: After appropriate identification and obtaining informed consent in the pre-op holding area, the patient was brought to the operating theater, placed prone on the operating table and general anesthesia was administered. The perineum was prepped with chlorhexidine and the buttocks gently taped apart for exposure. The patent was draped in the usual fashion. A surgical safety timeout was performed and all present were in agreement. Due to the nature of the procedure, VTE and IV antibiotic prophylaxis are not indicated. A perianal block was performed with 30mL of 1%lidocaine mixed 50/50 with 0.25% marcaine with 1:100,000 epinepherine. The anal canal was examined with a well lubricated digit and revealed normal tone,no masses, suspected left lateral internal opening distal to the dentate line and there was no blood. After introducing a well lubricated lighted Hirschman anoscope, examination of the anal canal revealed normal appearing mucosa, small anterior anal papilla, left lateral internal opening measuring 2-3m. A probe was easily passed from the external to internal opening, and the fistula appeared to encopass approx 10% if the sphincter muscle. Using electrocautery a fistulotomy was performed and monsels applied to ensure adequate hemostasis. The adjacent skin tag was excised to prevent abnormal healing. The perineum was dressed with fluffed gauze, abd and mesh underwear. All counts were reported as correct and the patient tolerated the procedure well. Infection Bundle used? N/A Attestation: Case Date: 10/31/2019 I performed this procedure without the involvement of a resident. Tan Solorio MD 10/31/2019 documented in this encounter Plan of Treatment Not on file documented as of this encounter Procedures Procedure Name Priority Date/Time Associated Diagnosis Comments SPECIMEN TO PATHOLOGY Routine 10/31/2019 9:07 AM EDT SURGICAL PATHOLOGY REPORT Routine 10/31/2019 9:03 AM EDT Removal Anal Fistula, Submuscular ([id number]) 10/31/2019 8:26 AM EDT fistula in anal documented in this encounter Results * Specimen to Pathology (10/31/2019 9:07 AM EDT) AP Specimen 10/31/2019 9:07 AM EDT 10/31/2019 9:07 AM EDT Narrative [facility] - 10/31/2019 9:07 AM EDT Specimen requisition ordered. ??Separate Pathology report to follow Tan Solorio MD PATHOLOGY/CYTOLOGY O RDERABLES [facility] [place] [address] * Surgical Pathology Report (10/31/2019 9:03 AM EDT) Final Diagnosis [id number] ? Location: [facility]; [facility]; The signing pathologist has (i) examined the relevant preparation(s) for the specimen(s) and (ii) rendered or confirmed the diagnosis(es). . ?Surgical Pathology DIAGNOSIS Perianal skin tag: - ??Fibroepitheli al polyp. Electronically signed by: ??Ayo Us MD Verified: ??11/06/2019 ?Pathologist Performed at: ??-[facility] Dept. of Pathology, [place], [place] SPECIMEN(S) SUBMITTED A - Maegan-anal skin tag, excision (1) CLINICAL INFORMATION Fistula in anal SPECIMEN PROCESSING A - Labeled/Fixativ e: Perianal skin tag, fresh. Quantity/Size: Single, 1.1 x 0.9 x 0.9 cm. Tissue Description: Folded, polypoid, tag-like portion of anorectal tissue, glistening fong-pink. Sections/Proces sing: Inked, trisected and entirely submitted in 1 cassette labeled A1. ??PPS 11/06/2019 2:57 PM EDT [facility] SPECIMEN FROM SKIN / Unknown 10/31/2019 9:03 AM EDT 10/31/2019 9:03 AM EDT Tan Solorio MD PATHOLOGY/CYTOLOGY O RDERABLES [facility] [place] [place] [address] documented in this encounter Visit Diagnoses Not on filedocumented in this encounter Administered Medications Inactive Administered Medications - up to 3 most recent administrations Medication Order MAR Action Action Date Dose Rate Site acetaminophen (Tylenol) tablet 1,000 mg 1,000 mg, Oral, ONCE, 1 dose, On Sun10/31/19 at 0745, Maximum dose of acetaminophen is 4000 mg from all sources in 24 hours., Day of Surgery (Day of Procedure), Routine Given 10/31/2019 7:33 AM EDT 1,000 mg fentaNYL 50 mcg/mL multi-dose injection 12.5-25 mcg, Intravenous, EVERY 5 MIN PRN, Starting on Sun10/31/19 at 0930, Until Sun10/31/19 at 1332, Pain, Give 12.5 mcg every 5 minutes PRN for mild to moderate pain (1-5) Give 25 mcg every 5 minutes PRN for moderate to severe pain (6-10). Hold for respiratory rate less than 10 per minute. Maximum dose 250 mcg over one hour. If ordered with hydromorphone or morphine, give hydromorphone or morphine first and use fentanyl for breakthrough pain., Routine lactated ringers infusion 1,000 mL, at 100 mL/hr, Intravenous, CONTINUOUS, Starting on Sun10/31/19 at 0745, Until Sun10/31/19 at 1131, Day of Surgery (Day of Procedure) New Bag 10/31/2019 8:28 AM EDT New Bag 10/31/2019 8:20 AM EDT 1,000 mLs 100 mL/hr documented in this encounter Active and Recently Administered Medications Times are shown in EDT. Scheduled Medication Order 10/29/2019 10/30/2019 10/31/2019 acetaminophen (Tylenol) tablet 1,000 mg (COMPLETED) 1,000 mg, Oral, ONCE, 1 dose, On Sun10/31/19 at 0745, Maximum dose of acetaminophen is 4000 mg from all sources in 24 hours., Day of Surgery (Day of Procedure), Routine 0733 (Given - Provid er: Nereyda Avendano RN) Continuous Medication Order 10/29/2019 10/30/2019 10/31/2019 lactated ringers infusion (CANCELED) 1,000 mL, at 100 mL/hr, Intravenous, CONTINUOUS, Starting on Sun10/31/19 at 0745, Until Sun10/31/19 at 1131, Day of Surgery (Day of Procedure) 0820 (New Bag - Prov ider: Nereyda Avendano RN)0828 (New Bag - Provider: Bettye Leach)0902 (Anesthesia Volume Adjustment - Provider: Bettye Leach) PRN Medication Order 10/29/2019 10/30/2019 10/31/2019 BUpivacaine (PF) (MARCAINE) 0.25 % (2.5 mg/mL) injection (CANCELED) ONCE PRN, Starting on Sun10/31/19 at 0859, Until Sun10/31/19 at 1332, Intra-Operative (Intra-Procedure), Routine 0859 (Given - Provid er: Tan Solorio MD - Comment: 15mL Bupivacaine 0.25% mixed with 15mL Lidocaine 1% with epi (1:100,000)) fentaNYL 50 mcg/mL multi-dose injection 12.5-25 mcg, Intravenous, EVERY 5 MIN PRN, Starting on Sun10/31/19 at 0930, Until Sun10/31/19 at 1332, Pain, Give 12.5 mcg every 5 minutes PRN for mild to moderate pain (1-5) Give 25 mcg every 5 minutes PRN for moderate to severe pain (6-10). Hold for respiratory rate less than 10 per minute. Maximum dose 250 mcg over one hour. If ordered with hydromorphone or morphine, give hydromorphone or morphine first and use fentanyl for breakthrough pain., Routine lidocaine-EPINEPHrine 1 %-1:100,000 injection (CANCELED) ONCE PRN, Starting on Sun10/31/19 at 0859, Until Sun10/31/19 at 1332, Intra-Operative (Intra-Procedure), Routine 0859 (Given - Provid er: Tan Solorio MD - Comment: 15mL Bupivacaine 0.25% mixed with 15mL Lidocaine 1% with epi (1:100,000)) documented in this encounter Care Teams Web Production Assistant Relationship Specialty Start Date End Date Lisa Pearl PA [address] [place] [address] PCP - General Family Medicine 11/30/15 12/09/19 documented as of this encounter
--- OUTSIDE RECORDS SUMMARY | 2024-05-20 16:52 | XMS_ITS | Encounter Summary ---
Author Organization [facility] [place] [address] Care Team Providers Care Filenet Developer Name Role Phone Lisa Pearl Primary Care Provider +1- [phone] Reason for Visit * Reason Comments Thyroid Nodule Encounter Details Date Type Department Care Team (Late st Contact Info) Description 11/22/2017 1:00 PM EDT Office [place] [address] Tierra Delarosa MD [facility] [place] [address] Thyroid nodule Social History Tobacco Use Types Packs/Day Years Used Date Smoking Tobacco: Never Smokeless Tobacco: Never Sex and Gender Information Value Date Recorded Sex Assigned at Not on file Gender Identity Not on file Sexual Orientation Not on file documented as of this encounter Last Filed Vital Signs Vital Sign Reading Time Taken Comments Blood Pressure 106/73 11/22/2017 12:50 PM EDT Pulse 79 11/22/2017 12:50 PM EDT Temperature - - Respiratory Rate - - Oxygen Saturation - - Inhaled Oxygen Concentration - - Weight 50.9 kg (112 lb 3.2 oz) 11/22/2017 12:50 PM EDT Height 152.4 cm (5') 11/22/2017 12:50 PM EDT Body Mass Index 21.91 11/22/2017 12:50 PM EDT documented in this encounter Patient Instructions * Patient Instructions* Tierra Delarosa MD - 11/22/2017 1:00 PM EDT Plan: - TSH and 25vitD levels today and again next year - Adjust T4 dose PRN. Goal TSH around the low end of lower limit of normal range (1.0-2.0 and <2.5 if possible for nodule suppression without causing hyperthyroid). - To cont LT4 50 mcg qd and may adjust LT4 dose if indicated - RTC 1 yr & will recheck US for the nodule size to ensure stability and to keep TSH 1.0-2.0 range for her. TIERRA DELAROSA MD documented in this encounter Progress Notes * Tierra Delarosa MD - 11/22/2017 1:00 PM EDT Images from the original note were not included. Endocrine Clinic Name: Annette Hernández : 1975 PCP: DENA Jerome Provided by: Tierra Delarosa MD, PhD, FACE Date: 11/22/2017 Reason for visit: Endocrine visit: Annette Hernández is a 42 y.o. year old female who presents for follow-up of bilateral thyroid nodules. FNA of the right nodule was benign. FNA of the left nodule yielded atypical cytology, but repeat FNA was cytologically benign. Serial US showed stable nodule size. She has been doing well without any thyroid compressive symptoms: Globus sensation: No Dysphagia: No Dysphonia: No Dyspnea: No Symptoms of thyroid hormone excess / deficiency Heat intolerance: No Cold intolerance: No Diarrhea: No Constipation: No Weight loss / gain: gained wt 6 lbs over 2 years, from 106 to 112 lbs Anxiety: No Jitteriness: No Tremors: No Palpitations: No Difficulty concentrating: No Review of Systems See HPI. All other systems negative. PMH: Patient Active Problem List Diagnosis Code ??? CIS - Thyroid nodule ??? Thyroid nodule E04.1 Current Outpatient Prescriptions on File Prior to Visit Medication Sig Dispense Refill ??? ARIPiprazole (ABILIFY) 2 mg Tablet Take 5 mg by mouth daily. ??? levothyroxine (SYNTHROID) 50 mcg Tablet take 1 tablet by mouth once daily 90 tablet 3 ??? busPIRone (BUSPAR) 5 mg Tablet Take 5 mg by mouth 2 times daily. 1 ??? BETAMETHASONE DIPROPIONATE TOP (Patient taking differently: daily) ??? triamcinolone (NASACORT) 55 mcg nasal inhaler 2 sprays by Nasal route daily as needed. No current facility-administered medications on file prior to visit. Allergy: Allergies Allergen Reactions ??? Pcn [Penicillins] Rash ??? Milk Family History: +Graves' disease Social History: Social History Substance Use Topics ??? Smoking status: Never Smoker ??? Smokeless tobacco: Never Used ??? Alcohol use None Physical Exam BP 106/73 Pulse 79 Ht 152.4 cm (5') Wt 50.9 kg (112 lb 3.2 oz) BMI 21.91 kg/m2 GENERAL: A+O x 3; Comfortable; Mood and affect appropriate. EYES: Sclera clear, no conjunctival injection; No stare, lid lag or proptosis. NECK: Trachea is midline; Thyroid is palpable with more prominent and palpable Rt thyroid nodule; No cervical adenopathy. SKIN: Skin is normal in temperature and texture. No rashes noted. NEURO: Cranial nerves grossly intact; DTRs normal EXT: Gait and station normal; No tremor; No thyroid acropachy or pretibial myedema. THYROID / NECK ULTRASOUND: Date: 11/22/2017 Indication: Thyroid nodule follow up Real time images of the neck were obtained using a [id number] US machine and an HFL38/[id number] broadband linear array transducer. All measurements are given as AP x Transverse x Longitudinal Right Lobe: The right lobe measures: 2.2x1.8x4.0 cm and is of normal echotexture. There is an iso-echoic nodule in the right upper and mid lobe without real capsule but vascular borders on color doppler that measures: 11/22/17: 1.6x2.2x3.5 cm (longer nodule on longitudinal view) 11/30/15: 1.5x2.2x2.8 cm 11/05/14: 1.7x2.0x2.9 cm 10/2013: 1.5 x 2 x 2.9 cm 08/01/2011 1.5x1.8x3.2cm 08/12/2009 1.5x1.7x2.5cm 08/05/2008 1.5x1.7x2.7cm 02/13/2008 1.5x1.7x2.8cm There is a small central area of likely cystic degeneration.There are no intranodular calcifications; There is karley-nodular vascularity on color doppler. Left Lobe: The left lobe measures: 1.4x1.3x2.5 cm and is of normal echotexture. There is an mixed nodule with cystic degeneration occupying about 10-20% and solid part is iso-echoic in the left lobe that measures: 11/22/17: 1.2x1.2x2.25 cm (stable in size) 11/30/15: 1.1x1.2x2.0 cm 11/05/14: 1.2x1.4x2.4 cm 10/2013: 1.2 x 1.4 x 2.5 cm 08/01/2011 1.2x1.3x2.0cm 08/12/2009 1.1x1.0x1.8cm 08/05/2008 1.0x1.1x1.8cm 02/13/2008 1.0x1.2x1.9cm The nodule has sharp margins; There are no intranodular calcifications; There is minimal flow on doppler. Lateral Neck: No morphologically abnormal lymph nodes Impression: Homogenous asymmetric thyroid gland R>L lobe Pretty stable right and left isoechoic nodules with small areas of cystic degeneration, both with benign appearance and had benign FNA results previously. ASSESSMENT / PLAN: 1. Bilateral thyroid nodules of large size without pressure symptoms and clinically euthyroid (on LT4 50 mcg qd) Right nodule cytologically benign Jan 2008. Left nodule cytology was originally atypical, but was benign on repeat. All nodules were isoechoic with no high risk US features and pretty stable in size. The right nodule is slightly longer today so we will monitor US next year. Agree with previous US by Dr. Chaney which mentioned a small area of cystic degeneration of <20% in both nodules. Clinically euthyroid and no compressive symptoms. Indication for surgery would be significantly enlarging (>20% in size on 2 dimensions) and/or compressing nodules Indication for I-131 ablation would be autonomous or functioning nodule if TSH is trending down <1.0 despite reducing LT4 dose to none in the future. 2. Hypothyroid : currently on levothyroxine 50 mcg qd and has been doing well. To continue the samedose (recent TSH was 1.2 in spring at [facility] per pt). Plan is to keep TSH in low normal range of 1.0-2.0 or <2.5 if possible for nodule suppression. Plan: - TSH and 25vitD levels today and again next year - Adjust T4 dose PRN. Goal TSH around the low end of lower limit of normal range (1.0-2.0 and <2.5 if possible for nodule suppression without causing hyperthyroid). - To cont LT4 50 mcg qd and may adjust LT4 dose if indicated - To cont OTC-vitD 1,000 iu qd - RTC 1 yr & will recheck US for the nodule size to ensure stability and to keep TSH 1.0-2.0 range for her. TIERRA DELAROSA MD documented in this encounter Plan of Treatment Not on file documented as of this encounter Procedures Procedure Name Priority Date/Time Associated Diagnosis Comments VITAMIN D, 25-HYDROXY Routine 11/22/2017 2:02 PM EDT Thyroid nodule TSH Routine 11/22/2017 2:02 PM EDT Thyroid nodule documented in this encounter Results * Vitamin D, 25-Hydroxy (11/22/2018 12:12 PM EDT) Vitamin D Total 25 OH 47 30 - 100 ng/mL [facility] Comment: Deficient <10 ng/mL Insufficient 10 to 29 ng/mL Sufficient 30 to 100 ng/mL Potential Intoxication >100 ng/mL According to the US National Osteoporosis Foundation, Vitamin D concentrations >30 ng/mL are sufficient to protect bone health. ??The National Kidney Foundation has similarly stated that patients with Vitamin D concentrations <30ng/mL should be considered to be insufficient or deficient. http://[employer].Bityota/nkf-guidelines http://[employer]/nejm-VitD The [employer] i[employer] Vitamin D Immunoassay detects both 25-OH Vitamin D2 and 25-OH Vitamin D3, but only a total Vitamin D concentration is reported. Blood specimen (specimen) 11/22/2018 12:12 PM EDT 11/22/2018 1:29 PM EDT Narrative Resulting Agency Comment Spec In Lab Tierra Delarosa MD CHEMISTRY ORDERAB LES Performing Organization Address City/[facility]/ZIP Co de Phone Number [facility] [place] [address] * TSH (11/22/2018 12:12 PM EDT) Thyroid Stimulating Hormone 1.41 0.27 - 4.20 mcIU/mL [facility] Blood specimen (specimen) 11/22/2018 12:12 PM EDT 11/22/2018 12:21 PM EDT Narrative Resulting Agency Comment Spec In Lab Tierra Delarosa MD CHEMISTRY ORDERAB LES Performing Organization Address City/[facility]/ZIP Co de Phone Number [facility] [place] [address] * Vitamin D, 25-Hydroxy (11/22/2017 2:02 PM EDT) Vitamin D Total 25 OH 43 30 - 100 ng/mL [facility] Comment: Deficient <10 ng/mL Insufficient 10 to 29 ng/mL Sufficient 30 to 100 ng/mL Potential Intoxication >100 ng/mL According to the US National Osteoporosis Foundation, Vitamin D concentrations >30 ng/mL are sufficient to protect bone health. ??The National Kidney Foundation has similarly stated that patients with Vitamin D concentrations <30ng/mL should be considered to be insufficient or deficient. http://[employer].com/nkf-guidelines http://[employer].com/nejm-VitD The ID[employer] iSYS Vitamin D Immunoassay detects both 25-OH Vitamin D2 and 25-OH Vitamin D3, but only a total Vitamin D concentration is reported. Blood specimen (specimen) 11/22/2017 2:02 PM EDT 11/23/2017 7:11 AM EDT Narrative Resulting Agency Comment Spec In Lab Tierra Delarosa MD CHEMISTRY ORDERAB LES Performing Organization Address City/[facility]/ZIP Co de Phone Number [facility] [place] [address] * TSH (11/22/2017 2:02 PM EDT) Thyroid Stimulating Hormone 1.62 0.27 - 4.20 mlU/ML [facility] Blood specimen (specimen) 11/22/2017 2:02 PM EDT 11/22/2017 2:07 PM EDT Narrative Resulting Agency Comment Spec In Lab Tierra Delarosa MD CHEMISTRY ORDERAB LES Performing Organization Address [facility] Co de Phone Number [facility] [place] [address] documented in this encounter Visit Diagnoses Diagnosis Thyroid nodule Nontoxic uninodular goiter documented in this encounter Care Teams Filenet Developer Relationship Specialty Start Date End Date Lisa Pearl PA [address] [place] [address] PCP - General Family Medicine 11/30/15 12/09/19 documented as of this encounter
--- OUTSIDE RECORDS SUMMARY | 2024-05-20 16:52 | XMS_ITS | Encounter Summary ---
Author Organization [facility] [place] [address] Care Team Providers Care Oil Field Laborer Name Role Phone Lisa Pearl Primary Care Provider +1- [phone] Encounter Details Date Type Department Care Team (Latest Contact Info) Description 11/22/2018 12:00 PM EDT Laboratory Appointment Lab [address] [place] [address] Thyroid nodule Social History Tobacco Use Types Packs/Day Years Used Date Smoking Tobacco: Never Smokeless Tobacco: Never Sex and Gender Information Value Date Recorded Sex Assigned at Not on file Gender Identity Not on file Sexual Orientation Not on file documented as of this encounter Plan of Treatment Not on file documented as of this encounter Procedures Procedure Name Priority Date/Time Associated Diagnosis Comments VITAMIN D, 25-HYDROXY Routine 11/22/2018 12:12 PM EDT Thyroid nodule TSH STAT 11/22/2018 12:12 PM EDT Thyroid nodule documented in this encounter Results * Vitamin D, 25-Hydroxy (11/22/2018 12:12 PM EDT) Vitamin D Total 25 OH 47 30 - 100 ng/mL [facility] Comment: Deficient <10 ng/mL Insufficient 10 to 29 ng/mL Sufficient 30 to 100 ng/mL Potential Intoxication >100 ng/mL According to the US National Osteoporosis Foundation, Vitamin D concentrations >30 ng/mL are sufficient to protect bone health. ??The National Kidney Foundation has similarly stated that patients with Vitamin D concentrations <30ng/mL should be considered to be insufficient or deficient. http://[employer]Power/nkf-guidelines http://[employer]/nejm-VitD The ID[employer] iSYS Vitamin D Immunoassay detects both 25-OH Vitamin D2 and 25-OH Vitamin D3, but only a total Vitamin D concentration is reported. Blood specimen (specimen) 11/22/2018 12:12 PM EDT 11/22/2018 1:29 PM EDT Narrative Resulting Agency Comment Spec In Lab Tierra Rojas MD CHEMISTRY ORDERAB LES Performing Organization Address City/[facility]/ZIP Co de Phone Number [facility] [place] [address] * TSH (11/22/2018 12:12 PM EDT) Thyroid Stimulating Hormone 1.41 0.27 - 4.20 mcIU/mL [facility] Blood specimen (specimen) 11/22/2018 12:12 PM EDT 11/22/2018 12:21 PM EDT Narrative Resulting Agency Comment Spec In Lab Tierra Rojas MD CHEMISTRY ORDERAB LES Performing Organization Address City/[facility] Co de Phone Number [facility] [place] [address] documented in this encounter Visit Diagnoses Diagnosis Thyroid nodule Nontoxic uninodular goiter documented in this encounter Care Teams Oil Field Laborer Relationship Specialty Start Date End Date Lisa Pearl PA [address] [place] [address] PCP - General Family Medicine 11/30/15 12/09/19 documented as of this encounter
--- OUTSIDE RECORDS SUMMARY | 2024-05-20 16:52 | XMS_ITS | Encounter Summary ---
Author Organization [facility] [place] [address] Care Team Providers Care Dry Mill Worker Name Role Phone Lisa Pearl Primary Care Provider +1- [phone] Encounter Details Date Type Department Care Team (Late st Contact Info) Description 07/17/2017 Orders [place] [address] Ute Knutson, LOT TECHNICIAN [address] [place] [address] Bloating Social History Tobacco Use Types Packs/Day Years Used Date Smoking Tobacco: Never Smokeless Tobacco: Never Sex and Gender Information Value Date Recorded Sex Assigned at Not on file Gender Identity Not on file Sexual Orientation Not on file documented as of this encounter Plan of Treatment Not on file documented as of this encounter Visit Diagnoses Diagnosis Bloating Flatulence, eructation, and gas pain documented in this encounter Care Teams Dry Mill Worker Relationship Specialty Start Date End Date Lisa Pearl PA [address] [place] [address] PCP - General Family Medicine 11/30/15 12/09/19 documented as of this encounter
--- OUTSIDE RECORDS SUMMARY | 2024-05-20 16:52 | XMS_ITS | Encounter Summary ---
Author Organization [facility] [place] [address] Care Team Providers Care Veneer Lathe Operator Name Role Phone Lisa Pearl Primary Care Provider +1- [phone] Encounter Details Date Type Department Care Team (Late st Contact Info) Description 10/02/2017 Orders [place] [address] Ute Knutson, ELECTROPHYSIOLOGY NURSE PRACTITIONER [address] [place] [address] Social History Tobacco Use Types Packs/Day Years Used Date Smoking Tobacco: Never Smokeless Tobacco: Never Sex and Gender Information Value Date Recorded Sex Assigned at Not on file Gender Identity Not on file Sexual Orientation Not on file documented as of this encounter Plan of Treatment Not on file documented as of this encounter Visit Diagnoses Not on filedocumented in this encounter Care Teams Veneer Lathe Operator Relationship Specialty Start Date End Date Lisa Pearl PA [address] [place] [address] PCP - General Family Medicine 11/30/15 12/09/19 documented as of this encounter
--- OUTSIDE RECORDS SUMMARY | 2024-05-20 16:52 | XMS_ITS | Encounter Summary ---
Author Organization [facility] [place] [address] Care Team Providers Care Pinion And Wheel Truer Name Role Phone Unknown Primary Care Provider Unavailabl e Reason for Visit * Reason Onset Date Comments Pre Procedure Call 10/15/2019 Encounter Details Date Type Department Care Team (Late st Contact Info) Description 10/15/2019 Telephone [place] [address] Ale Crystal Pre Procedure Call Social History Tobacco Use Types Packs/Day Years Used Date Smoking Tobacco: Never Smokeless Tobacco: Never Sex and Gender Information Value Date Recorded Sex Assigned at Not on file Gender Identity Not on file Sexual Orientation Not on file documented as of this encounter Miscellaneous Notes * Telephone Encounter - Ale Crystal - 10/15/2019 2:21 PM EDT Returned call. Patient scheduled * Telephone Encounter - Ale Crystal - 10/15/2019 10:43 AM EDT I have called and left a message for patient to call and schedule surgery with Dr. Quin Solorio documented in this encounter Plan of Treatment Not on file documented as of this encounter Visit Diagnoses Not on filedocumented in this encounter Care Teams Pinion And Wheel Truer Relationship Specialty Start Date End Date Unknown None PCP - General 8/19/20 documented as of this encounter
--- OUTSIDE RECORDS SUMMARY | 2024-05-20 16:52 | XMS_ITS | Encounter Summary ---
Author Organization [facility] [place] [address] Care Team Providers Care Entry Level Recruiter Name Role Phone Lisa Pearl Primary Care Provider +1- [phone] Encounter Details Date Type Department Care Team (Late st Contact Info) Description 09/27/2017 4:00 PM EDT Tech [place] [address] Ute Guillaume, BUTTON MACHINE OPERATOR [address] [place] [address] Bloating; Small intestinal bacterial overgrowth Social History Tobacco Use Types Packs/Day Years Used Date Smoking Tobacco: Never Smokeless Tobacco: Never Sex and Gender Information Value Date Recorded Sex Assigned at Not on file Gender Identity Not on file Sexual Orientation Not on file documented as of this encounter Progress Notes * Ute Guillaume APRN - 09/27/2017 4:00 PM EDT Gastroenterology Breath Test Report Patient: Annette Hernández Date Of : 1975 PCP: DENA Jerome Referring: Ute Guillaume STUDY DATE: 09/28/2017 PROVIDER: UTE GUILLAUME APRN INDICATION: Abdominal bloating Evaluate for SIBO ppmH2 ppmCH4 CO2(f) Fasting Baseline 48 12 4.2/1.45 Administer sugar: 15 mL Lactulose 90 mL H2O Sample Time ppmH2 ppmCH4 CO2(f) 1. 20 min 43 11 3.7/1.64 2. 40 min 57 14 3.5/1.74 3. 60 min 52 14 3.4/1.79 4. 80 min 110 20 3.3/1.84 5. 100 min 164 22 3.3/1.84 6. 120 min 200 21 3.5/1.74 7. 140 min 160 19 3.8/1.60 8. 160 min 149 20 3.7/1.64 9. 180 min 125 20 3.3/1.84 Interpretation: Positive hydrogen breath test consistent with small intestinal bacterial overgrowth(SIBO). 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 There is a significantly elevated baseline hydrogen level followed by an early and significant rise in hydrogenproduction at 80 minutes. This meets criteria for small intestinal bacterial overgrowth. A second delayed rise in hydrogen at approximately 100-120 minutes is consistent with normal orocecal transit time. ?? Signed, Ute Guillaume APRN Gastroenterology [place] [address] P: [phone] F: [phone] Copy: DENA Mireles Clinical interpretation is based on the [place] consensus on breath testing published in theAmerican Journal of Gastroenterology, 2017. A rise in production of hydrogen or methane greater than 20 ppm or 10 ppm respectively from baseline levels within 90 minutes is consistent with small intestinal bacterial overgrowth. documented in this encounter Plan of Treatment Not on file documented as of this encounter Visit Diagnoses Diagnosis Bloating Flatulence, eructation, and gas pain Small intestinal bacterial overgrowth documented in this encounter Care Teams Entry Level Recruiter Relationship Specialty Start Date End Date Lisa Pearl PA [address] [place] [address] PCP - General Family Medicine 11/30/15 12/09/19 documented as of this encounter
--- OUTSIDE RECORDS SUMMARY | 2024-05-20 16:52 | XMS_ITS | Encounter Summary ---
Author Organization [facility] [place] [address] Care Team Providers Care Tele Tech Name Role Phone Lisa Pearl Primary Care Provider +1- [phone] Encounter Details Date Type Department Care Team (Late st Contact Info) Description 07/12/2017 Orders [place] [address] Ute Knutson, PRECISION FARMING SPECIALIST [address] [place] [address] Irritable bowel syndrome, unspecified type; Bloating Social History Tobacco Use Types Packs/Day Years Used Date Smoking Tobacco: Never Smokeless Tobacco: Never Sex and Gender Information Value Date Recorded Sex Assigned at Not on file Gender Identity Not on file Sexual Orientation Not on file documented as of this encounter Plan of Treatment Not on file documented as of this encounter Visit Diagnoses Diagnosis Irritable bowel syndrome, unspecified type Bloating Flatulence, eructation, and gas pain documented in this encounter Care Teams Tele Tech Relationship Specialty Start Date End Date Lisa Pearl PA [address] [place] [address] PCP - General Family Medicine 11/30/15 12/09/19 documented as of this encounter
--- OUTSIDE RECORDS SUMMARY | 2024-05-20 16:52 | XMS_ITS | Encounter Summary ---
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 Procedures PRO SURG DIAGNOSTIC EXAM, ANORECTAL PRO PLACEMENT, SETON ANORECTAL EXAM, REQUIRING ANESTHESIA, DIAGNOSTIC (WRVU 1.8) ANAL SETON PLACEMENT (WRVU 3) Referral ID Status Reason Start Date Expiration Date Visits Re quested Visits Authorized [id number] 1 1 Encounter Details Date Type Department Care Team (Late st Contact Info) Description 10/31/2019 8:28 AM EDT Anesthesia [place] [address] Nancy Solis MD [facility] [place] [address] Bettye Leach MD [facility] [place] [address] Anesthesia Record Procedure Summary Procedure Name Responsible Anesthesiologist Anesthesia Start Time Anesthesia Stop Time ANAL FISTULA (FISTULECTOMY\FISTULO JERARDO), SUBMUSCULAR (WRVU 5.42) (Anus) Nancy Solis MD 10/31/19 0828 10/31/19 0930 Events Date Time Event Comment 10/31/2019 0828 AN Verify 0828 Start 0828 An Start Data 0835 An Induction 0841 An Intubation 0855 Anesthesia Ready 0857 Procedure Start 0915 Extubation/LMA Out 0924 an stop data 0930 Recovery or ICU Handoff Saira ent care was transferred to the destination unit staff after review of the patient's medical history, current anesthetic/surgical status and plan, according to the Provider Handoff Checklist. 0930 Stop 1008 Meds Name Total fentaNYL 25 mcg IV Lidocaine 40 mg Propofol 200 mg Rocuronium 30 mg PHENYLephrine 80 mcg Ondansetron 4 mg Dexamethasone 4 mg Neostigmine 3 mg Glycopyrrolate 0.4 mg Propofol INF 30.78 mg Dexmedetomidine 8 mcg lactated ringers infusion 500 mL * Agents Name O2 Air N2O Sevoflurane (et) * Blood No blood administrations on file. Lines, Drains, and Airways Type Details Placement Removal (RETIRED) Peripheral IV Line - Single Lumen 10/31/19; 0759; metacarpal vein (top of hand), left; ecig-ncb-[id number] catheter system; 20 gauge, 3/4 in length; Nely Guillaume RN; distraction, intradermal injection, tolerated well; 0; 10/31/19; 1127 10/31/19 0759 by Nely Guillaume RN 10/31/19 1127 by Kam Townsend RN ETT Mask Ventilation: Ea sy (1); ETT Type: Cuffed; ETT Size: 7 mm; Mac Blade: 3; Notes: Asleep, Cricoid Pressure, Stylette, Pre-O2; Attempts: 1; Laryngoscopy Grade: 1; ETT Placement Verified By: Auscultation, Capnometry, Visual; Secured at Teeth: 22 cm; Inserted by: Kaitlyn; Removal Date: 10/31/19; Removal Time: 91410/31/19 0846 by Bettye Leach MD 10/31/19 0915 by Bettye Leach MD Incision 10/31/19; 0859; anus ; 12/19/21 (LDA cleanup utility RA#[id number]); 1715 (LDA cleanup utility RA#[id number]) 10/31/19 0859 by Romain Rodriguez RN 12/19/21 1715 by Renetta Burdick documented in this encounter Social History Tobacco Use Types Packs/Day Years [...] MAR Action Action Date Dose Rate Site dexamethasone (Decadron) injection PRN, Starting on Sun10/31/19 at 0858, Until Sun10/31/19 at 0930, Anesthesia Intra-op, Routine Given 10/31/2019 8:58 AM EDT 4 mg dexmedetomidine (PRECEDEX) injection PRN, Starting on Sun10/31/19 at 0900, Until Sun10/31/19 at 0930, Anesthesia Intra-op, Routine Given 10/31/2019 9:00 AM EDT 8 mcg fentaNYL 50 mcg/mL multi-dose injection PRN, Starting on Sun10/31/19 at 0857, Until Sun10/31/19 at 0930, Anesthesia Intra-op, Routine Given 10/31/2019 8:57 AM EDT 25 mcg glycopyrrolate (ROBINUL) multi-dose injection PRN, Starting on Sun10/31/19 at 0907, Until Sun10/31/19 at 0930, Anesthesia Intra-op, Routine Given 10/31/2019 9:07 AM EDT 0.4 mg lactated ringers infusion 1,000 mL, at 100 mL/hr, Intravenous, CONTINUOUS, Starting on Sun10/31/19 at 0745, Until Sun10/31/19 at 1131, Day of Surgery (Day of Procedure) New Bag 10/31/2019 8:28 AM EDT New Bag 10/31/2019 8:20 AM EDT 1,000 mLs 100 mL/hr lidocaine (PF) (XYLOCAINE) 100 mg/5 mL (2 %) injection PRN, Starting on Sun10/31/19 at 0835, Until Sun10/31/19 at 0930, Anesthesia Intra-op, Routine Given 10/31/2019 8:35 AM EDT 40 mg neostigmine (BLOXIVERZ) injection PRN, Starting on Sun10/31/19 at 0907, Until Sun10/31/19 at 0930, Anesthesia Intra-op, Routine Given 10/31/2019 9:07 AM EDT 3 mg ondansetron (ZOFRAN) injection PRN, Starting on Sun10/31/19 at 0905, Until Sun10/31/19 at 0930, Anesthesia Intra-op, Routine Given 10/31/2019 9:05 AM EDT 4 mg PHENYLephrine in NS (PF) (JUNITO-SYNEPHRINE) 0.8 mg/10 mL (80 mcg/mL) multi-dose injection Syrg PRN, Starting on Sun10/31/19 at 0850, Until Sun10/31/19 at 0930, Anesthesia Intra-op, Routine Given 10/31/2019 8:50 AM EDT 80 mcg propofol (DIPRIVAN) 10 mg/mL bolus injection (Anesthesia) PRN, Starting on Sun10/31/19 at 0835, Until Sun10/31/19 at 0930, Anesthesia Intra-op Given 10/31/2019 8:35 AM EDT 200 mg propofol (DIPRIVAN) infusion CONTINUOUS PRN, Starting on Sun10/31/19 at 0851, Until Sun10/31/19 at 0930, Anesthesia Intra-op, Routine New Bag 10/31/2019 8:51 AM EDT 50 mcg/kg/min 15.4 mL/hr rocuronium (ZEMURON) multi-dose injection PRN, Starting on Sun10/31/19 at 0835, Until Sun10/31/19 at 0930, Anesthesia Intra-op, Routine Given 10/31/2019 8:35 AM EDT 30 mg documented in this encounter Care Teams Watch Band Assembler Relationship Specialty Start Date End Date Lisa Pearl PA [address] [place] [address] PCP - General Family Medicine 11/30/15 12/09/19 documented as of this encounter
--- OUTSIDE RECORDS SUMMARY | 2024-05-20 16:52 | XMS_ITS | Encounter Summary ---
Author Organization [facility] [place] [address] Care Team Providers Care Skiing Instructor Name Role Phone Lisa Pearl Primary Care Provider [phone]- [phone] Encounter Details Date Type Department Care Team (Late st Contact Info) Description 11/22/2018 1:00 PM EDT Office [place] [address] Tierra Delarosa MD [facility] [place] [place] [address] Multiple thyroid nodules Social History Tobacco Use Types Packs/Day Years Used Date Smoking Tobacco: Never Smokeless Tobacco: Never Sex and Gender Information Value Date Recorded Sex Assigned at Not on file Gender Identity Not on file Sexual Orientation Not on file documented as of this encounter Last Filed Vital Signs Vital Sign Reading Time Taken Comments Blood Pressure 103/73 11/22/2018 12:52 PM EDT Pulse 75 11/22/2018 12:52 PM EDT Temperature - - Respiratory Rate - - Oxygen Saturation - - Inhaled Oxygen Concentration - - Weight 50.3 kg (111 lb) 11/22/2018 12:52 PM EDT Height 152.4 cm (5') 11/22/2018 12:52 PM EDT Body Mass Index 21.68 11/22/2018 12:52 PM EDT documented in this encounter Patient Instructions * Patient Instructions* Tierra Delarosa MD - 11/22/2018 1:00 PM EDT Plan: - TSH and [...] cont OTC-vitD 1,000 iu qd - RTC as needed & will recheck US only as needed for the nodule size maybe in 2- 3 yrs to ensurestability and to keep TSH 1.0-2.0 range for her. - Ok to see PCP and check lab for TSH annually at her physical yearly TIERRA DELAROSA MD Recent Results (from the past 24 hour(s)) TSH Result Value Ref Range TSH 1.41 0.27 - 4.20 mcIU/mL documented in this encounter Progress Notes * Tierra Delarosa MD - 11/22/2018 1:00 PM EDT Images from the original note were not included. Endocrine Clinic Name: [facility]te [facility] : 1975 PCP: DENA Jerome Provided by: Tierra Delarosa MD, PhD, FACE Date: 11/22/2018 Reason for visit: Thyroid nodules Annette Hernández is a 43 y.o. year old female who presents for follow-up of bilateral thyroid nodules. FNA of the right nodule was benign. FNA of the left nodule yielded atypical cytology, but a repeat FNA was cytologically benign. Serial US showed stable nodule size. She has been doing well without any thyroid compressive symptoms: Globus sensation: No Dysphagia: No Dysphonia: No Dyspnea: No Symptoms of thyroid hormone excess / deficiency Heat intolerance: No Cold intolerance: No Diarrhea: No Constipation: No Weight loss / gain: stable at 111-112 lbs Anxiety: No Jitteriness: No Tremors: No Palpitations: No Difficulty concentrating: No Review of Systems See HPI. All other systems negative. PMH: Patient Active Problem List Diagnosis Code ??? CIS - Thyroid nodule ??? Thyroid nodule E04.1 ??? Hypothyroid E03.9 Current Outpatient Medications on File Prior to Visit Medication Sig Dispense Refill ??? cholecalciferol, Vitamin D3, 1,000 unit Tablet Take 1,000 Units by mouth daily. ??? ARIPiprazole (ABILIFY) 2 mg Tablet Take [...] History: +Graves' disease Social History: Social History Tobacco Use ??? Smoking status: Never Smoker ??? Smokeless tobacco: Never Used Substance Use Topics ??? Alcohol use: Not on file ??? Drug use: Not on file Physical Exam BP 103/73 Pulse 75 Ht 152.4 cm (5') Wt 50.3 kg (111 lb) BMI 21.68 kg/m?? GENERAL: A+O x 3; Comfortable; Mood and affect appropriate. EYES: Sclera clear, no conjunctival injection; No stare, lid lag or proptosis. NECK: Trachea is midline; Thyroid is palpable with more prominent Rt thyroid nodule. No cervical adenopathy. SKIN: Skin is normal in temperature and texture. No rashes noted. NEURO: Cranial nerves grossly intact; DTRs normal EXT: Gait and station normal; No tremor; No thyroid acropachy or pretibial myedema. THYROID / NECK ULTRASOUND: Date: 11/22/2018 Indication: Thyroid nodule follow up Comparison: 11/22/17 Real time images of the neck were obtained using a PercSys US machine and an HFL38/13-6 broadband linear array transducer. All measurements are given as AP x Transverse x Longitudinal Right Lobe: The right lobe measures: 2.1x1.9x3.5 cm and is of normal echotexture. There is an iso-echoic nodule in the right upper and mid lobe without real capsule but vascular borders on color doppler that measures: 11/22/18: 1.7x2.0x3.1 cm (smaller on the longitudinal view this year) 11/22/17: 1.6x2.2x3.5 cm 11/30/15: 1.5x2.2x2.8 cm 11/05/14: 1.7x2.0x2.9 cm 10/2013: 1.5 x 2 x 2.9 cm 08/01/2011 1.5x1.8x3.2cm 08/12/2009 1.5x1.7x2.5cm 08/05/2008 1.5x1.7x2.7cm 02/13/2008 1.5x1.7x2.8cm There is a small central area of likely cystic degeneration.There are no intranodular calcifications; There is karley-nodular vascularity on color doppler. Left Lobe: The left lobe measures: 1.4x1.4x2.5 cm and is of normal echotexture. There is an mixed nodule with cystic degeneration occupying about 10-20% and solid part is iso-echoic in the left lobe that measures: 11/22/18: 1.2x1.2x 2.0 cm (overall stable in size) 11/22/17: 1.2x1.2x 2.25 cm 11/30/15: 1.1x1.2x2.0 cm 11/05/14: 1.2x1.4x2.4 cm 10/2013: 1.2 x 1.4 x 2.5 cm 08/01/2011 1.2x1.3x2.0cm 08/12/2009 1.1x1.0x1.8cm 08/05/2008 1.0x1.1x1.8cm 02/13/2008 1.0x1.2x1.9cm The nodule has sharp margins; There are no intranodular calcifications; There is minimal flow on doppler. Isthmus: 0.2 cm Lateral Neck: No morphologically abnormal lymph nodes [...] in size. The right nodule is slightly smaller today which is good news. Agree with previous US by Dr. Chaney which mentioned a small area of cystic degeneration of <20% in both nodules. Clinically euthyroid and no compressive symptoms. Indication for surgery would be significantly enlarging (>20% in size on 2 dimensions) and/or compressing nodules 2. Hypothyroid : currently on levothyroxine 50 mcg qd and has been doing well. To continue the samedose as her TSH is good at target today. Plan is to keep TSH in low normal range of 1.0-2.0 or <2.5 if possible for nodule suppression. Plan: - TSH and 25vitD levels today -pending for vitD results - Adjust T4 dose PRN. Goal TSH around the low end of lower limit of normal range (1.0-2.0 and <2.5 if possible for nodule suppression without causing hyperthyroid). - To cont LT4 50 mcg qd and may adjust LT4 dose if indicated - To cont OTC-vitD 1,000 iu qd - RTC here as needed & will recheck US only as needed for the nodule size maybe in 2-3 yrs to ensure stability and to keep TSH 1.0-2.0 range for her. - Ok to see PCP and check lab for TSH annually at her physical yearly TIERRA DELAROSA MD Recent Results (from the past 24 hour(s)) TSH Result Value Ref Range TSH 1.41 0.27 - 4.20 mcIU/mL * Tierra Delarosa MD - 11/22/2018 1:00 PM EDT THYROID / NECK ULTRASOUND: ?? Name: Annette Hernández : 1975 Date: 11/22/2018 ?? Indication: Thyroid nodule follow up ?? Comparison: 11/22/17, etc (see below) ?? Real time images of the neck were obtained using a PercSys US machine and an HFL38/13-6 broadband linear array transducer. ?? All measurements are given as AP x Transverse x Longitudinal ?? Right Lobe: The right lobe measures: 2.1x1.9x3.5 cm and is of normal echotexture. There is an iso-echoic nodule in the right upper and mid lobe without real capsule but vascular borders on color doppler that measures: 11/22/18: 1.7x2.0x3.1 cm (smaller on the longitudinal view this year) 11/22/17: 1.6x2.2x3.5 cm 11/30/15: 1.5x2.2x2.8 cm 11/05/14: 1.7x2.0x2.9 cm 10/2013: 1.5 x 2 x 2.9 cm 08/01/2011 1.5x1.8x3.2cm 08/12/2009 1.5x1.7x2.5cm 08/05/2008 1.5x1.7x2.7cm 02/13/2008 1.5x1.7x2.8cm There is a small central area of likely cystic degeneration.There are no intranodular calcifications; There is karley-nodular vascularity on color doppler. ?? Left Lobe: The left lobe measures: 1.4x1.4x2.5 cm and is of normal echotexture. There is an mixed nodule with cystic degeneration occupying about 10-20% and solid part is iso-echoic in the left lobe that measures: 11/22/18: 1.2x1.2x 2.0 cm (overall stable in size) 11/22/17: 1.2x1.2x 2.25 cm 11/30/15: 1.1x1.2x2.0 cm 11/05/14: 1.2x1.4x2.4 cm 10/2013: 1.2 x 1.4 x 2.5 cm 08/01/2011 1.2x1.3x2.0cm 08/12/2009 1.1x1.0x1.8cm 08/05/2008 1.0x1.1x1.8cm 02/13/2008 1.0x1.2x1.9cm The nodule has sharp margins; There are no intranodular calcifications; There is minimal flow on doppler. ?? Isthmus: 0.2 cm ?? Lateral Neck: No morphologically abnormal lymph nodes ?? Impression: Homogenous asymmetric thyroid gland R>L lobe Pretty stable right and left isoechoic nodules with small areas of cystic degeneration, both with benign appearance and had benign FNA results previously. Rec: Follow TSH annually and recheck US in 2-3 yrs or earlier if she is symptomatic. Tierra Delarosa MD, PhD, FACE, FACP documented in this encounter Plan of Treatment Not on file documented as of this encounter Visit Diagnoses Diagnosis Multiple thyroid nodules Nontoxic multinodular goiter documented in this encounter Care Teams Skiing Instructor Relationship Specialty Start Date End Date Lisa Pearl PA [address] [place] [address] PCP - General Family Medicine 11/30/15 12/09/19 documented as of this encounter
--- OUTSIDE RECORDS SUMMARY | 2024-05-20 16:52 | XMS_ITS | Encounter Summary ---
Author Organization [facility] Address [facility] [place] [address] Care Team Providers Care Clarifier Operator Name Role Phone Lisa Pearl Primary Care Provider +1- [phone] Reason for Visit * Reason Comments GI Problem * Consultation (Routine) - Closed Specialty Diagnoses / Procedures Referred By Kane alejandre Referred To Contact Gastroenterology Diagnoses Irritable bowel syndrome Lisa Pearl PA [address] [place] [address] [facility] [place] [address] Referral ID Status Reason Start Date Expiration Date V isits Requested Visits Authorized [id number] Closed Consult, Test & Treat Connection Center 02/03/2017 02/03/2018 1 1 Encounter Details Date Type Department Care Team (Late st Contact Info) Description 02/16/2017 1:00 PM EDT Office [place] [address] Ute Knutson, FERRY TERMINAL SUPERVISOR [address] [place] [address] Irritable bowel syndrome with diarrhea; Bloating Social History Tobacco Use Types Packs/Day Years Used Date Smoking Tobacco: Never Smokeless Tobacco: Never Sex and Gender Information Value Date Recorded Sex Assigned at Not on file Gender Identity Not on file Sexual Orientation Not on file documented as of this encounter Last Filed Vital Signs Vital Sign Reading Time Taken Comments Blood Pressure 103/71 02/16/2017 12:58 PM EDT Pulse 78 02/16/2017 12:58 PM EDT Temperature - - Respiratory Rate - - Oxygen Saturation - - Inhaled Oxygen Concentration - - Weight 48 kg (105 lb 12.8 oz) 02/16/2017 12:58 P M EDT Height 152.4 cm (5') 02/16/2017 12:58 PM EDT Body Mass Index 20.66 02/16/2017 12:58 PM EDT documented in this encounter Patient Instructions * Patient Instructions* Ute Knutson APRN - 02/16/2017 1:00 PM EDT 1. Rifaximin 550mg three times daily for 14 days 2. Followed by: Low-FODMAP diet x 2 weeks. Gradually reintroduce one food at a time. 3. Mediterranean diet long-term 4. Enteric coated peppermint oil up to four times a day as needed. 5. Imodium 2mg once daily and gradually increase to 8 pills (16mg) in one day 6. Please send me a message in 6 weeks to let me know how you are doing or sooner if needed 7. Hemorrhoid suppositories up to two times daily as needed. I gave you one refill. documented in this encounter Progress Notes * Ute Knutson APRN - 02/16/2017 1:00 PM EDT POWER MULE OPERATOR: Ute Knutson APRN PCP: DENA Jerome REQUESTING PROVIDER: FRANK Jerome REASON FOR CONSULTATION This is a 41 y.o. female with a history significant for anxiety and depression. I am seeing her as a new patient today in consult for IBS. GI PROBLEM LIST 1. IBS- Diarrhea predominance --COLONOSCOPY 12/06/16; unremarkable --EGD 12/06/16; unremarkable. Pathology; H. Pylori gastritis. --Confirmation stool study; negative HPI COMMENTS When she was a baby, was started on regular cow's milk before [age] year old. From that point on has been on a diet of diet gingerale and bananas. She outgrew this diet. As a teenager she did have a few stomach issues. Her stomach issues have been getting progressively worse. Abdominal cramping and diarrhea. Fecal urgency. Denies fecal incontinence. May move her bowels overtwo times per day. Denies blood or mucus in stool. Endorses hemorrhoids. Denies constipation. Denies anal and rectal pain. Bloating depending on what she eats. Denies nausea and vomiting. Good appetite. Has lost approximately four pounds over the past few months. Otherwise no unintentional weight loss. Denies anemia. Rare nocturnal symptoms. This morning I was up at 4 and I had to go. Denies chronic NSAIDs. Denies reflux and regurgitation. Denies dysphagia, odynophagia, and globus. Triggers; dairy. Has tried eliminating gluten. Didn't notice any change in her symptoms. Stool studies have been negative. Lactaid doesn't help her symptoms. Has not tried any medications for this issue. She states she does feel better when she takes antibiotics. Diet Reviewed: Breakfast; eggs/toast Lunch; sandwich Dinner; meat/vegetable Coffee/Tea: 16 oz/day Soda/Juice/Sugary Beverages: once a week Calcium: cream in coffee and cheese Food allergies: lactose ROS Notable for the gastrointestinal symptoms as described above. CONSTITUTIONAL: Denies anorexia, fever, or unintended weight change EYES: Denies red or painful eyes ENT: Denies oral ulcers, dysphagia, odynophagia, globus. RESPIRATORY: Denies cough, shortness of breath, wheezing CV: Denies palpitations, chest pain. : Denies dysuria, urinary incontinence, or dyspareunia. MUSC/SKELETAL: I think I have the start of psoriatic arthritis. INTEGUMENTARY: Psoriasis. NEURO: Migraines once a year. Denies neuropathy, loss of sensation, facial drooping or unilateral weakness. PSYCH: Anxiety/depression. ENDO: Denies frequent urination and excessive hunger or thirst. HEM/LYMPH: Denies easy bleeding or bruising. ALL/IMMUNO: Denies seasonal allergies, frequent colds. ALLERGIES Allergies Allergen Reactions ??? Pcn [Penicillins] Rash ??? Milk CURRENT MEDICATIONS Medications reviewed and reconciled in e-DH Current Outpatient Prescriptions: ??? levothyroxine (SYNTHROID) 50 mcg Tablet, Take 1 tablet by mouth daily., Disp: 90 tablet, Rfl: 0 ??? levothyroxine (SYNTHROID) 50 mcg Tablet, take 1 tablet by mouth once daily, Disp: 90 tablet, Rfl: 3 ??? busPIRone (BUSPAR) 5 mg Tablet, Take 5 mg by mouth 2 times daily., Disp: , Rfl: 1 ??? sertraline (ZOLOFT) 50 mg tablet, Take 50 mg by mouth daily., Disp: , Rfl: ??? triamcinolone (NASACORT) 55 mcg nasal inhaler, 2 sprays by Nasal route daily as needed., Disp: , Rfl: ??? BETAMETHASONE DIPROPIONATE TOP, , Disp: , Rfl: MEDICAL HISTORY 1. Thyroid nodules 2. Anxiety 3. 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 Has 2 kids- one boy and one girl HABITS Denies tobacco use. Denies alcohol use. Denies using other substances. FAMILY HISTORY Mom is alive, age: 74 Dad is alive, age: 77 PGM- pancreatic cancer Denies family history of celiac disease, esophageal cancer, stomach cancer, colon cancer, liver issues, and IBD. PHYSICAL EXAM: Most Recent Vitals: 02/16/17 1258 BP: 103/71 Pulse: 78 Height: Height: 152.4 cm (5') Weight: Weight - Scale: 48 kg (105 lb 12.8 oz) Body mass index is 20.66 kg/(m^2). GENERAL: Healthy-appearing in no acute distress. Appears stated age. Appropriate weight for height. SKIN: No lesions, rashes, lumps, or angiomas on exposed skin. NECK: No adenopathy. No thyromegaly. HEENT: PERRL, EOMI, mucosa clear without ulceration or lesions, normal Dentition LUNGS: Clear to auscultation bilaterally COR: Regular, normal S1 and S2 without murmurs. ABD: Tympanic. Normal active BS. Soft, non-distended. No bruits. No tenderness to deep palpation inall 4 quadrants. No organomegaly. EXT: No cyanosis, clubbing, or edema. NEURO: Alert and oriented to person, place, time, and situation. Cranial nerves II-XII intact. PSYCH: Mood appropriate. Good eye contact. Normal interaction. Answers all questions appropriately. LABS: Lab Results Component Value Date TSH 2.60 11/05/2014 ASSESSMENT This is a krissy 41 y.o. female with a history significant for anxiety, depression, thyroid noduleswho comes to me today for evaluation of IBS. She reports a lifelong history of diarrhea symptoms with worsening over the past few years. Accompanying symptoms include bloating abdominal pain abdominal cramping and fecal urgency she had a colonoscopy in November 2016 which was unremarkable at the sametime she had an upper endoscopy which was positive for H. pylori gastritis she has since undergone antibiotic therapy and eradication has been confirmed with the stool study. No warning signs she needs JESSE IV criteria for IBS. She has had stool studies done all of which been negative. 1. IBS-Diarrhea predominance We discussed the pathophysiology of IBS with a focus on the diarrhea predominant type including central/visceral hypersensitivity, gut dysbiosis, diet, and immune function. We reviewed the low-FODMAPdiet. Literature was provided. Lifestyle and diet recommendations include Lifeway kefir/probiotic and peppermint. I find it interesting that her symptoms improved with antibiotic use in the past. This is something we sometimes see with SIBO. We discussed the utility of HBT versus empiric treatment with rifaximin. Given that rifaximin is FDA approved for the treatment of IBS and the low sensitivity and specificity of the hydrogen breath test she would like to be treated empirically at this time. I feel this is reasonable. We reviewed medication indications, administration, and side effects. Ifher symptoms fail to improve after treatment with rifaximin, we will do a hydrogen breath test. I recommended following the low-FODMAP diet for 2 weeks after treatment with rifaximin. I recommended enteric-coated peppermint up to 4 times a day on an empty stomach as needed. She lives approximately 1 hour away. As such she will send me a message in approximately 6 weeks with an update or sooner ifneeded. Consider utility of TTG/IgA, IgA for refractory symptoms. 2. BLOATING Unclear etiology. Consider dysbiosis/SIBO. PLAN 1. Rifaximin 500mg three times daily x 14 days. 2. Followed by Low-FODMAP diet x 2-6 weeks. Gradually reintroduce one food at a time to identify triggers. 3. May use enteric coated peppermint oil such as IB María on an empty stomach as needed for cramping. May also use peppermint tea. 4. Lifeway kefir 1/2-1 cup per day. May use a probiotic if preferred. 5. Loperamide 2mg daily and gradually increase to 16mg daily as needed. 6. She will send me a message to update in 6 weeks, or sooner if needed. I have provided her with my contact information. She has been encouraged to contact me with any questions or concerns. TIME SPENT WITH PATIENT 58 minutes of this 62 minute visit were spent in [id number] discussion and counseling the patientas detailed per above. Signed, Ute Knutson APRN 02/16/17 1:54 PM Section of Gastroenterology & Hepatology [facility] documented in this encounter Plan of Treatment Not on file documented as of this encounter Visit Diagnoses Diagnosis Irritable bowel syndrome with diarrhea Irritable bowel syndrome Bloating Flatulence, eructation, and gas pain documented in this encounter Care Teams Clarifier Operator Relationship Specialty Start Date End Date Lisa Pearl PA [address] [place] [address] PCP - General Family Medicine 11/30/15 12/09/19 documented as of this encounter
--- OUTSIDE RECORDS SUMMARY | 2024-05-20 16:52 | XMS_ITS | Encounter Summary ---
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 Procedures PRO SURG DIAGNOSTIC EXAM, ANORECTAL PRO PLACEMENT, SETON ANORECTAL EXAM, REQUIRING ANESTHESIA, DIAGNOSTIC (WRVU 1.8) ANAL SETON PLACEMENT (WRVU 3) Referral ID Status Reason Start Date Expiration Date Visits Re quested Visits Authorized [id number] 1 1 Encounter Details Date Type Department Care Team (Late st Contact Info) Description 10/31/2019 8:30 AM EDT - 10/31/2019 10:28 AM EDT Surgery [place] [address] Tan Solorio MD [facility] [place] [address] ANAL FISTULA (FISTULECTOMY\FISTULOT EMELY), SUBMUSCULAR (WRVU 5.42) Social History Tobacco Use Types Packs/Day Years [...] for postoperative pain control. ?? Please take [id number] pain medications for post-operative discomfort. ?? Acetaminophen [...] . Division of Colon and Rectal Surgery, [facility] [address] ??? [place] [address] ??? documented in this encounter Medications at [...] Assumed care of pt. On arrival to [facility] recovery VSS, pt on simple mask [...] consent has been obtained. 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 ??Separate Pathology report to follow Tan Solorio MD PATHOLOGY/CYTOLOGY O RDERABLES [facility] [place] [address] * Surgical Pathology Report (10/31/2019 9:03 AM EDT) Final Diagnosis [id number] ? Location: [facility]; [facility]; The signing pathologist has (i) examined the relevant preparation(s) for the specimen(s) and (ii) rendered or confirmed the diagnosis(es). . ?Surgical Pathology DIAGNOSIS Perianal skin tag: - ??Fibroepitheli al polyp. Electronically signed by: ??Ayo Us MD Verified: ??11/06/2019 ?Pathologist Performed at: ??-[facility] Dept. of Pathology, [place], [place] SPECIMEN(S) SUBMITTED A - Maegan-anal skin tag, excision (1) CLINICAL INFORMATION Fistula in anal SPECIMEN PROCESSING A - Labeled/Fixativ e: Perianal skin tag, fresh. Quantity/Size: Single, 1.1 x 0.9 x 0.9 cm. Tissue Description: Folded, polypoid, tag-like portion of anorectal tissue, glistening fong-pink. Sections/Proces sing: Inked, trisected and entirely submitted in 1 cassette labeled A1. ??PPS 11/06/2019 2:57 PM EDT [facility] SPECIMEN FROM SKIN / Unknown 10/31/2019 9:03 AM EDT 10/31/2019 9:03 AM EDT Tan Solorio MD PATHOLOGY/CYTOLOGY O RDERAEMMA [facility] [place] [address] documented in this encounter Visit Diagnoses Not [...] Given 10/31/2019 7:33 AM EDT 1,000 mg BUpivacaine (PF) (MARCAINE) 0.25 % (2.5 mg/mL) injection ONCE PRN, Starting on Sun10/31/19 at 0859, Until Sun10/31/19 at 1332, Intra-Operative (Intra-Procedure), Routine Given 10/31/2019 8:59 AM EDT 15 mLs 19- Surgical Site fentaNYL 50 mcg/mL multi-dose injection 12.5-25 mcg, [...] 8:20 AM EDT 1,000 mLs 100 mL/hr lidocaine-EPINEPHrine 1 %-1:100,000 injection ONCE PRN, Starting on Sun10/31/19 at 0859, Until Sun10/31/19 at 1332, Intra-Operative (Intra-Procedure), Routine Given 10/31/2019 8:59 AM EDT 15 mLs 19- Surgical Site documented in this encounter Active and Recently [...] (1:100,000)) documented in this encounter Care Teams Radiology Receptionist Relationship Specialty Start Date End Date Lisa Pearl PA [address] [place] [address] PCP - General Family Medicine 11/30/15 12/09/19 documented as of this encounter
--- OUTSIDE RECORDS SUMMARY | 2024-05-20 16:52 | XMS_ITS | Clinical Summary ---
Author Organization [facility] Address [facility] [place] [address] Care Team Providers Care Battery Assembler Plastic Name Role Phone Unknown Primary Care Provider Unavailabl e Allergies Active Allergy Reactions Criticality Noted Date Comments Cat Dander Other (See Comments) 06/23/2019 Sneezing and watery eyes Milk Penicillins Rash Medium 08/01/2011 Medications Medication Sig Dispensed Refills Start Date End Date Status BETAMETHASONE DIPROPIONATE TOP 08/12/2009 Active busPIRone (BUSPAR) 5 mg Tablet Take 5 mg by mouth 2 times daily. 1 10/21/2014 Active levothyroxine (SYNTHROID) 50 mcg Tablet take 1 tablet by mouth once daily 90 tablet 3 02/01/2016 Active ARIPiprazole (ABILIFY) 2 mg Tablet Take 5 mg by mouth daily. Active cholecalciferol, Vitamin D3, 1,000 unit Tablet Take 1,000 Units by mouth daily. Active sertraline (Zoloft) 50 mg Tablet Take 50 mg by mouth daily. Active Active Problems Problem Noted Date Diagnosed Date Hypothyroid 11/22/2018 Thyroid nodule 08/01/2011 CIS - Thyroid nodule 08/12/2009 Overview (06/28/2010): Bilateral nodules - benign cytology 2007 Social History Tobacco Use Types Packs/Day Years Used Date Smoking Tobacco: Never Smokeless Tobacco: Never Sex and Gender Information Value Date Recorded Sex Assigned at Not on file Gender Identity Not on file Sexual Orientation Not on file Last Filed Vital Signs Vital Sign Reading Time Taken Comments Blood Pressure 111/74 12/01/2019 11:54 AM EDT Pulse 70 12/01/2019 11:54 AM EDT Temperature 36.8 ??C (98.2 ??F) 12/01/2019 11:54 AM E DT Respiratory Rate 18 12/01/2019 11:54 AM EDT Oxygen Saturation 100% 12/01/2019 11:54 AM EDT Inhaled Oxygen Concentration - - Weight 51.7 kg (114 lb) 12/01/2019 11:54 AM EDT Height 152.4 cm (5') 10/31/2019 7:18 AM EDT Body Mass Index 22.26 10/31/2019 7:18 AM EDT Plan of Treatment Health Maintenance Due Date Last Done Comments CT Colonography 1973 Colonoscopy 1973 Colorectal Cancer Screening 1973 FIT DNA 1973 FIT 1973 Sigmoidoscopy (10 year) with FIT yearly 1973 Sigmoidoscopy 1973 HIV screen 1991 Hepatitis C Screening 1991 Hepatitis B vaccine (0-59 yrs) (1) 1992 Tetanus/Diphtheria/Pertussis Vaccines (1 - Tdap) 05/13 HPV test 2003 PAP Smear 2003 Breast Cancer Share Decision Needed 2013 Breast Cancer screening 2013 Pneumoccocal Vaccine: 50+ (1 of 1 - PCV) 2023 Zoster vaccine (1 of 2) 2023 Covid-19 Vaccine (1 - 2023- season) 2023 Influenza (Flu) vaccine (1 o f 1 - Influenza standard series) 12/23/2023 Care Teams Battery Assembler Plastic Relationship Specialty Start Date End Date Unknown None PCP - General 12/10/19
--- OUTSIDE RECORDS SUMMARY | 2024-05-20 16:52 | XMS_ITS | Encounter Summary ---
Author Organization [facility] [place] [address] Care Team Providers Care Sales Merchandiser Name Role Phone Lisa Pearl Primary Care Provider +1- [phone] Reason for Visit * Reason Comments Follow-up Encounter Details Date Type Department Care Team (Late st Contact Info) Description 12/01/2019 11:30 AM EDT Office Visit [place] [address] Dereck Tomlinson PA [id number] Social History Tobacco Use Types Packs/Day Years [...] (114 lb) 12/01/2019 11:54 AM EDT Height - - Body Mass Index 22.26 10/31/2019 7:18 AM EDT documented in this encounter Progress Notes * Dereck Tomlinson PA - 12/01/2019 11:30 AM EDT Colorectal Surgery Outpatient Follow-up ~ Division of Colon and Rectal Surgery ~ [facility] Primary Care Physician: DENA Jerome Referring Provider: Lisa Pearl HPI: Annette Hernández is a 44 y.o. female from [place], [place]. She is here for a post-operative check. On 10/31/2019 the patient underwent EUA and fistulotomy. The patient had an uneventful post-operative hospital course and was discharged on the same day. She has had return of bowel function. Pain is well controlled. She has some residual discomfort at the site of the fistulotomy. Otherwise, no concerns. Pathology: Review of Systems Past medical history: No past medical history on file. Past surgical history: Past Surgical History: Procedure Laterality Date ??? PRO REMOVAL ANAL FISTULA, SUBMUSCULAR N/A 10/31/2019 ANAL FISTULA (FISTULECTOMY\FISTULOTOMY), SUBMUSCULAR (WRVU 5.42) [facility] Allergies: Pcn [penicillins], Cat dander, and Milk Medications: reviewed in the electronic medical record. Current Outpatient Medications on File Prior to Visit Medication Sig Dispense Refill ??? sertraline (Zoloft) 50 mg Tablet Take 50 mg by mouth daily. ??? cholecalciferol, Vitamin D3, 1,000 unit Tablet [...] BETAMETHASONE DIPROPIONATE TOP (Patient taking differently: daily) No current facility-administered medications on file prior to visit. Social history: reports that she has never smoked. She has never used smokeless tobacco. Family medical history: No family history on file. Physical exam: Vitals: Blood pressure 111/74, pulse 70, temperature 36.8 ??C (98.2 ??F), resp. rate18, weight 51.7 kg (114 lb), SpO2 100 %.Body mass index is 22.26 kg/m??. General: Well developed. NAD. Perineum: The patient was positioned on the procedural table in prone jackknife position with the assistance from nursing. Examination of the perianal skin reveals a nearly intact anoderm with a siteof the prior fistulotomy on the left posterior lateral quadrant. This is starting to re-epithelialized and is healing nicely. Extremities: No edema in the lower extremities. COREFO Responses 06/23/2019 12/01/2019 Incontinence Scale 5.55 2.77 Social Impact Scale 19.44 19.44 Frequency Scale 12.5 0 Stool Releated Aspects 33.33 0 Medication Scale 33.33 33.33 Total COREFO Score 17.3 11.53 The COREFO questionnaire is a validated questionnaire with 27 questions to assess colorectal functional outcome. Patients are asked to consider the two week period prior before filling out the questionnaire. Category scores range from zero to 100. A total score is calculated from the categories above, also ranging from zero to 100. A higher score represents an increased level of functional disturbance. No flowsheet data found. Pathology: Surgical Pathology Report Date Value Ref Range Status 10/31/2019 Final [id number] Location: [facility]; [facility]; A The signing pathologist has (i) examined the relevant preparation(s) for the specimen(s) and (ii) rendered or confirmed the diagnosis(es). . Surgical Pathology DIAGNOSIS Perianal skin tag: - Fibroepithelial polyp. Electronically signed by: Ayo Us MD Verified: 11/06/2019 Pathologist Performed at: -[facility] Dept[facility] of Pathology, [place], [place] SPECIMEN(S) SUBMITTED A - Maegan-anal skin tag, excision (1) CLINICAL INFORMATION Fistula in anal SPECIMEN PROCESSING A - Labeled/Fixative: Perianal skin tag, fresh. Quantity/Size: Single, 1.1 x 0.9 x 0.9 cm. Tissue Description: Folded, polypoid, tag-like portion of anorectal tissue, glistening fong-pink. Sections/Processing: Inked, trisected and entirely submitted in 1 cassette labeled A1. PPS Colonoscopy: Imaging: reviewed. Impression/Plan: Annette Hernández is now s/p evaluation under anesthesia and left posterior lateral fistulotomy for fistula and anal. She is making nice recovery and healing appropriately. She may follow-up with us on an as-needed basis. All of her questions were answered to her satisfaction.. We have reviewed his pathology and have agreed on the following plan. documented in this encounter Plan of Treatment Not on file documented as of this encounter Visit Diagnoses Diagnosis [id number] Anal fistula documented in this encounter Care Teams Sales Merchandiser Relationship Specialty Start Date End Date Lisa Pearl PA [address] [place] [address] PCP - General Family Medicine 11/30/15 12/09/19 documented as of this encounter
--- OUTSIDE RECORDS SUMMARY | 2024-05-20 16:52 | XMS_ITS | Encounter Summary ---
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 Tresa White MD [address] [place] [address] [address] [place] [address] [facility] Gen Surgery [address] [address] Referral ID Status Reason Start Date Expiration Date V isits Requested Visits Authorized [id number] Closed Consult, Test & [facility] Connection [facility] PCP Updated and/or Approved 06/12/2019 06/11/2020 1 1 Encounter Details Date Type Department Care Team (Late st Contact Info) Description 06/23/2019 8:45 AM EST Office [place] [address] Tan Solorio MD [facility] [place] [address] [id number] Social History Tobacco Use Types Packs/Day Years Used Date Smoking Tobacco: Never Smokeless Tobacco: Never Sex and Gender Information Value Date Recorded Sex Assigned at Not on file Gender Identity Not on file Sexual Orientation Not on file documented as of this encounter Last Filed Vital Signs Vital Sign Reading Time Taken Comments Blood Pressure 107/68 06/23/2019 8:31 AM EST Pulse 72 06/23/2019 8:31 AM EST Temperature 36.6 ??C (97.8 ??F) 06/23/2019 8:31 AM ES T Respiratory Rate 16 06/23/2019 8:31 AM EST Oxygen Saturation 100% 06/23/2019 8:31 AM EST Inhaled Oxygen Concentration - - Weight 50.8 kg (112 lb) 06/23/2019 8:31 AM EST Height 152.4 cm (5') 06/23/2019 8:31 AM EST Body Mass Index 21.87 06/23/2019 8:31 AM EST documented in this encounter Patient Instructions * Patient Instructions* Jil Baltazar RN - 06/23/2019 8:45 AM EST [facility] Colorectal Surgery Enhanced Recovery After Surgery (ERAS) Pathway Patient Instructions ?? Reducing stress on your body leads to rapid recovery of your bodily functions, with fewer post-operative complications. ?? Expect to go home in 3-5 days depending on your operation, reason for surgery, and general medical condition. ?? Stays longer than 2 week are uncommon (<5%). ?? This program is designed to help you recover faster and get back to doing the things you like todo. Before Surgery ?? Avoiding dehydration will help you feel better going into surgery. 1. The day before surgery: Clearfast is a maltodextrin-sugar containing energy supplement. At noon,drink 1 bottle of ClearFast (you will be provided with the ClearFast at pre-anesthesia/pre-admission testing). 2. The night before surgery: just before bedtime, drink 1 bottle of ClearFast After that, please continue to drink plenty of Gatorade throughout the night to avoid dehydration from your bowel prep. 3. The morning of surgery: drink last bottle of ClearFast no later than 2 hrs prior to the scheduled surgery start time (for example if you are scheduled for surgery at 7:30am; drink 1 bottle of ClearFast no later than 5:30am). Please be aware that if you drink this less than 2 hours before your surgery starts, your surgery may be delayed or canceled. Activity - Get strong for surgery At home before surgery 1. If you presently do not exercise at least 20 minutes three times a week, we strongly encourage you to start to as soon as possible, by walking for 15 minutes daily. In the hospital after surgery 1. After surgery, you will be instructed on breathing exercise, to keep the lungs open and clear, using an incentive spirometer to be done alteast 10 times per hour while awake. 2. Expect to cough. Coughing is good and helps to keep the lungs open and clear. ?? Use a pillow to brace your abdomen when coughing to minimize discomfort. 3. Plan on getting out of bed into the comfortable chair in your room the night of surgery for at least 2 hours. 4. Plan on walking around the nursing unit more than once the night of surgery. 5. Day after surgery: out of bed for at least 8 hours; if you are awake, you should be in the chair. ?? Hospital beds are best for sleeping only. 6. Walk around the nursing unit at least 6 times daily. Walking encourages bowel activity and prevents blood clots (deep vein thrombosis - DVTs). If you are high-risk for DVT's you will be sent home with preventative medication for a total of 28 days At home after surgery 1. Make sure you walk outside at least 4 times per day 2. You should be able to climb a flight of stairs before you leave the hospital 3. No driving while in pain or taking pain medication 4. No strenuous activity or heavy lifting (usually nothing greater than 10 lbs or a gallon of milk)for 4-6 weeks after surgery Diet, Nutrition, & Wound Healing At home before surgery 1. Avoid alcohol until after you are recovered from surgery 2. Quit smoking as soon as possible and at least 4 weeks before surgery 3. Eat healthy: make sure to eat plenty of protein (meat, fish, chicken) in the weeks leading up toyour surgery ?? if you have been losing weight please take a nutritional supplement three times per day startingtoday ?? examples include Ensure High Protein, Boost Plus, or [place] Instant Breakfast mixed in whole milk +/- ice-cream In the hospital after surgery 1. Early feeding after surgery has been proven to be safe and promotes bowel activity. 2. Chewing gum has been proven to keep the bowel awake & avoid ileus. 3. We encourage you to start drinking clear liquids as soon as awake in the recovery room. 4. You will receive Boost Breeze nutritional supplements twice daily starting the night of surgery. These may be changed to full strength Boost Plus or Ensure High-Protein after you have eaten. 5. Full portions of regular diet (or low fiber diet if you have an ileostomy) are usually given themorning after surgery. 6. Listen to your body: if belching, bloated, nauseated, excessive heartburn, regurgitating/brashwater, or uncomfortable then limit oral intake of food and liquid. At home after surgery 1. Make sure you are getting plenty of protein (fish, chicken, meat, soy, protein shakes) in your diet. 2. We recommend taking a nutritional supplement (Boost, Ensure, [place] Instant Breakfast) for several weeks after surgery to make sure you are not losing weight while your body is healing. 3. Chew food thoroughly, smaller portions more often, take with plenty of liquid. 4. Drink more liquids than usual to avoid constipation and dehydration. Nausea Prevention 1. Your bowel prep, general anesthesia, some medications, and your surgery may or may not result innausea. Approximately 10% of patients have post-operative nausea and/or vomiting. 2. We will routinely prescribe medication to prevent nausea. 3. While in the hospital, nausea treatment medications will be given to you if you need them. Pain Control 1. Two-days before surgery (48 hours) please start taking 2 tablets of Extra Strength Tylenol (acetominophen) three times per day. This builds up Tylenol blood levels so that you have less discomfortafter surgery If you have liver problems (cirrhosis)-do not take tylenol. 2. After you check into same day surgery the morning of surgery, you may receive pills to prevent post-surgery discomfort (Tylenol, Celebrex, & Gabapentin). 3. The morning of surgery patient meets Anesthiology Team and discuss nerve blocks, epidural/spinalanesthesia. 4. Depending on the size of incision and other factors expect a combination of an abdominal nerve block, epidural/spinal anesthesia, scheduled non-narcotic pain pills, and a mild narcotic pain pill (Tramadol). ?? only as needed: a narcotic pain button and/or narcotic pills. 5. You should try to avoid/limit narcotics if your pain is otherwise well- controlled because narcotics: ?? slow down the bowels. ?? are potentially addictive if taken when not having pain. ?? cause nausea. 6. If your pain is not well-controlled you may receive narcotics to make you more comfortable ?? request anti-nausea medicine early if needed. ?? If taking oral narcotics then you may need a stool softener. Tubes and Drains 1. Your intravenous (IV) fluids will usually be turned off the morning after surgery. 2. Your urinary catheter will usually be removed morning after surgery. ?? People who may need the Mcnally catheter longer include patients who have bladder surgery, prostate surgery or prostate problems, an epidural catheter, or pelvic surgery. 3. In some rectal surgery patients a pelvic drain is used; this is usually removed just before you leave the hospital. 4. If diane are used they are usually removed two weeks after surgery in 4L by the General Surgery nurses When Can I go home? ?? when you are eating and drinking ?? when you are urinating without a catheter ?? when bowels are working (meaning passing gas or stool) ?? when your pain is controlled with oral medication ?? Tylenol and ibuprofen (with food) every 6 hours, but stagger the doses so that you are taking something every 3 hours (tylenol at 12:00, ibuprofen at 3:00, tylenol at 6:00, ibuprofen at 9:00, etc)around the clock (assuming no allergy/contraindications to either) ?? do not forget to keep on this regimen when you go home! ?? Tramadol or Oxycodone only for breakthrough pain that is not at a tolerable level ?? when you have been educated about signs and symptoms of possible complications ?? if applicable: independent stoma self-care and visiting nurse arrangements in place ?? a Discharge Director Physical will arrange visiting nurses and other special needs. ?? follow-up appointment with Dr. Allen in 4-5 weeks Your ERAS Surgery Team Before and after your hospital stay (4L team) 1. Esteban Allen MD, Attending Colorectal Surgeon, Dereck PENN 2. 4L General Surgery Nurses (Gilma Mckay Jennifer, Tara, Jil & Lorraine): [phone] 3. Surgery schedulers: Brijesh: [phone] 4. Scheduling: (various): [phone] 5. Alesha Galeano, Software Development Advisor to Dr. Allen ?? [phone] During your hospital stay (Rounding team) 1. General Surgery Chief Resident (rotates) 2. General Surgery Culvert Installer (rotates) 3. [facility] 3rd year Medical Student (rotates) 4. Parvin Yu PA assisting 5. Dr. Esteban Allen (Dr. Tan Solorio or Dr. Courtney Solorio if covering for Dr. Allen) supervising Ostomy Nurses: Marie Schroeder R.N., Renee Gaming R.N, & Tresa Ryan R.N., Shwetha Eaton RN, Cecily Molina RN Where to Find Clearfast We will be providing you with the Clearfast. You will receive the Clearfast when you visit pre-anesthesia/pre-admission testing (PAT) here at [facility]. Please call pre-admission testing at [phone] if you did not receive it at the time of your visit. When calling please let them know you are an ERAS pt of Dr. Allen's. Resources for questions: ?? For medical question call the General Surgery Nurses: [phone] ?? We strongly encourage emailing questions or concerns online via Viratech (please do not use regular e-mail, it is un-reliable) and a Nurse or Dr. Allen will get back to you usually within 1 or 2 business days. ?? For scheduling questions call Alesha Galeano: [phone] ?? If you are interested in learning more about ERAS we recommend Google searching for ERAS YouTubeERAS Colorectal Surgery as well as [email or web address] Checklist: [ ] Eat lots of protein [ ] Exercise - start TODAY [ ] ClearFast, 3 bottles (will be given to you) [ ] small pillow for coughing [ ] comfortably clothes/robe and slippers to wear while in the hopsital [ ] Start Tylenol 2 days before surgery documented in this encounter Progress Notes * Tan Solorio MD - 06/23/2019 8:45 AM EST Colorectal Surgery Outpatient Consultation ~ Division of Colon and Rectal Surgery ~ [facility] HPI: Annette Hernández is a pleasant 44 y.o. female who we were asked to see by Dr. White regarding Chief Complaint Patient presents with ??? Establish Care . The patient's PCP is DENA Jerome. She presents for evaluation of fistula in ano s/p previous seton placement in 02/2019. She denies pain or swelling, but endorses daily discharge, non bloody. No fevers, chills, or nausea. Unchanged bowel function from baseline IBS symptoms. No previous colonoscopy. Review of Systems Constitutional: Negative for weight loss and chills. Gastrointestinal: Positive for constipation and diarrhea. Negative for abdominal discomfort. Psychiatric/Behavioral: Positive for depression and physiological symptoms of anxiety. All other systems reviewed and are negative. Past medical history: Patient Active Problem List Diagnosis Code ??? CIS - Thyroid nodule ??? Thyroid nodule E04.1 ??? Hypothyroid E03.9 Past surgical history: No past surgical history on file. Allergies: Pcn [penicillins]; Cat dander; and Milk Medications: reviewed in the electronic [...] DIPROPIONATE TOP (Patient taking differently: daily) ??? [DISCONTINUED] triamcinolone (NASACORT) 55 mcg nasal inhaler 2 sprays by Nasal route daily as needed. No current facility-administered medications on file prior to visit. Social history: reports that she has never smoked. She has never used smokeless tobacco. Family medical history: No family history on file. Patient denies a family history of: colorectal cancer, colorectal polyps, diverticular disease, Crohn disease and ulcerative colitis. Patient admits a family history of: none. Physical exam: Vitals: Blood pressure 107/68, pulse 72, temperature 36.6 ??C (97.8 ??F), resp. rate 16, height 152.4 cm (5'), weight 50.8 kg (112 lb), SpO2 100 %. BMI: Body mass index is 21.87 kg/m??. General Appearance: well developed and well nourished Neuro: awake, alert and oriented to person, place and time no acute distress Psych: appropriate mood and affect Eyes: extra ocular muscles intact, pupils equally reactive to light and accomodation ENT: neck supple, no lyphadenopathy noted CV: regular rate and rhythm Resp: non-labored without adventitous sounds on auscultation Lymph: no edema noted Abdomen: soft, non-tender, and not distended, no masses or organomegaly Perineal exam: The patient was examined in the prone jada-knife position with assistance from nursing. No abscess.Left lateral perianal fistula external opening with skin tag. Anoscopy: After introducing a well lubricated lighted Hirschman anoscope, examination of the anal canal revealed normal appearing mucosa, no masses, left lateral suspected internal opening at the dentate line. Ext: no cyanosis Labs: reviewed. Endoscopy: reviewed. Path: reviewed. Imaging: reviewed. COREFO Responses 06/23/2019 Incontinence Scale 5.55 Social Impact Scale 19.44 Frequency Scale 12.5 Stool Releated Aspects 33.33 Medication Scale 33.33 Total COREFO Score 17.3 The COREFO questionnaire is a validated questionnaire with 27 questions to assess colorectal functional outcome. Patients are asked to consider the two week period prior before filling out the questionnaire. Category scores range from zero to 100. A total score is calculated from the categories above, also ranging from zero to 100. A higher score represents an increased level of functional disturbance. Impression/Plan: Annette Hernández is a 44 y.o. female with left lateral fistula in ano. Discussed need for EUA with possible seton placement vs fistulotomy or anorectal advancement flap depending on the degree of sphincter involvement. The risks, benefits, and alternatives were discussed in detail including risks of bleeding, infection, need for additional procedures, incontinence, cardiac, pulmonary and renal complications. All of her questions were answered to her satisfaction and I will coordinate a mutually convenient OR time. Tan Solorio MD MSc FACS manager information Division of Colon and Rectal Surgery [facility] Pager [phone] documented in this encounter Plan of Treatment Not on file documented as of this encounter Visit Diagnoses Diagnosis [id number]-[id number] Anal fistula documented in this encounter Care Teams Certified Procedural Coder Relationship Specialty Start Date End Date Lisa Pearl PA [address] [place] [address] PCP - General Family Medicine 11/30/15 12/09/19 documented as of this encounter
--- OUTSIDE RECORDS SUMMARY | 2024-05-20 16:53 | XMS_ITS | Encounter Summary ---
Author Organization [facility] Address [address] [place] [address] Care Team Providers Care Senior Business Manager Name Role Phone Unknown, Provider Primary Care Provider Hamida abebe Encounter Details Date Type Department Care Team (Late st Contact Info) Description 12/06/2016 Results Only [facility] [phone] Mike Shea MD [address] [facility] [address] [place] [address] Social History Tobacco Use Types Packs/Day Years Used Date Smoking Tobacco: Never Assessed Comments Unknown Sex and Gender Information Value Date Recorded Sex Assigned at Not on file Legal Sex Female 18:26 EST Gender Identity Not on file Sexual Orientation Not on file documented as of this encounter Plan of Treatment Not on file documented as of this encounter Procedures Procedure Name Priority Date/Time Associated Diagnosis Comments SURGICAL PATHOLOGY Routine 12/06/2016 9:19 EDT documented in this encounter Results * SURGICAL PATHOLOGY (12/06/2016 9:19 EDT) Pathology Report: SURGICAL PATHOLOGY REPORT Reports generated via electronic interface contain original data; however they are lacking the format of the original report. Caution should be taken when reading/interpret ing unformatted reports. Name: ? ANNETTE HERNÁNDEZ ? Accession #: ? [id number] ? : ? 1975 (Age: 41) ??F ? Collect Date: ? 12/06/2016 ? Location: ? [facility] ? Receive Date: ? 12/07/2016 ? Provider: DANE SHEA MD Copy to: ? Final Pathologic Diagnosis: A. ??DUODENUM, 2ND PORTION, BIOPSY: - Duodenal mucosa with no specific pathologic features. B. ??STOMACH, ANTRUM AND BODY, BIOPSY: - Chronic Helicobacter pylori associated gastritis. C. ??COLON, DESCENDING, BIOPSY: - Colonic mucosa with hyperplastic surface change. ?? Document reviewed and electronically signed by: DOMINGO GONZALEZ MD Report ??Date: 12/08/2016 15:22 By the signature above, the attending physician certifies that he/she has personally conducted a gross and/or microscopic examination of the described specimens and rendered or confirmed the above diagnosis. Specimen(s) Received: A. ??2nd portion duodenum bx B. ??Antrum and body bx C. ??Descending colon bx Clinical History: Hematochezia, altered bowel habits; clinical diagnosis code: K92.1, R19.4 Gross Description: A. ?Received in formalin labelled with proper patient identification (initials C, S) and A. 2nd portion duodenum bx is a single pale yellow tissue fragment (0.6 x 0.1 x 0.1 cm). Submitted intact in A1. B. ?Received in formalin labelled with proper patient identification (initials C, S) and B. antrum and body bx are three light fong tissues (0.3 x 0.1 x 0.1 cm, 0.3 x 0.1 x 0.1 cm and 0.5 x 0.1 x 0.1 cm). Entirely submitted in B1. C. ?Received in formalin labelled with proper patient identification (initials C, S) and C. descending colon bx is a single fong-white tissue fragment (0.4 x 0.2 x 0.1 cm). Submitted intact in C1. Jay Zamora 12/07/2016 10:17 AM End of Report [facility] 12/06/2016 9:19 EDT 12/07/2016 9:19 EDT us Mike Shea MD PATHOLOGY ORDERABLES Final Resul t [facility] [address] [place] [id number] documented in this encounter Visit Diagnoses Not on filedocumented in this encounter Care Teams Senior Business Manager Relationship Specialty Start Date End Date Unknown, Provider, PCP - General 02/25/15 documented as of this encounter
--- OUTSIDE RECORDS SUMMARY | 2024-05-20 16:53 | XMS_ITS | Encounter Summary ---
Author Organization [facility] Address [address] [place] [address] Care Team Providers Care Gas Maker Name Role Phone Unavailable Primary Care Provider Unavailabl e Encounter Details Date Type Department Care Team (Late st Contact Info) Description 06/20/2002 Results Only [facility] [address] [place] [address] Eulalia Jefferson CNM [address] [place], [place] [id number] Social History Tobacco Use Types Packs/Day Years [...] Procedure Name Priority Date/Time Associated Diagnosis Comments CYTOPATHOLOGY Routine 06/20/2002 0:00 EST documented in this encounter Results * CYTOPATHOLOGY (06/20/2002 0:00 EST) Pathology Report: CYTOPATHOLOGY REPORT Reports generated via electronic interface contain original data; however they are lacking the format of the original report. Caution should be taken when reading/interpreti ng unformatted reports. Name: ? ANNETTE HERNÁNDEZ ? Accession #: ? [id number] : ? 1975 (Age: 27) ??F ?Collect Date: ? 06/20/2002 Location: ? [facility] ? Receive Date: ? 06/24/2002 Provider: ?EULALIA JEFFERSON CNM Copy to: ? Specimen/Source: ?ThinPrep Pap Test, Cervix/Endocervix Last Menstrual Period: ? 07/24/01 Menstrual/Pregnanc y Status: ? Post ? SPECIMEN ADEQUACY ? Satisfactory for Evaluation - transformation zone component present - scant squamous epithelial component GENERAL CATEGORIZATION ? Negative for Intraepithelial Lesion or Malignancy ? Document reviewed and electronically signed by: ? GUERDA Greene(ASCP) ? Report Date: ??06/25/2002 15:52 End of Report [facility] 06/20/2002 06/24/2002 us Eulalia Jefferson CNAnna PATHOLOGY ORDERABLES Final Resul t [facility] [address] [place] [address] documented in this encounter Visit Diagnoses Not on filedocumented in this encounter
--- OUTSIDE RECORDS SUMMARY | 2024-05-20 16:53 | XMS_ITS | Clinical Summary ---
Author Organization [facility] Address [address] [place] [address] Care Team Providers Care Retail Supervisor Name Role Phone Unknown, Provider Primary Care Provider Unava ilable Social History Tobacco Use Types Packs/Day Years Used Date Smoking Tobacco: Never Assessed Interpersonal Safety Answer Date Record ed Physically Hurt Never 11/23/2019 Verbally Threaten Not on file 11/23/2019 Comments Unknown Sex and Gender Information Value Date Recorded Sex Assigned at Not on file Legal Sex Female 18:26 EST Gender Identity Not on file Sexual Orientation Not on file Plan of Treatment Health Maintenance Due Date Last Done Comments Hepatitis C Screen 1975 Hepatitis B Vaccine (1 of 3 - 19+ 3-dose series) 05/13 COVID-19 Vaccine (2023- season) 2023 Insurance [facility] Care Teams Retail Supervisor Relationship Specialty Start Date End Date Unknown, Provider, PCP - General 02/25/15
--- OUTSIDE RECORDS SUMMARY | 2024-05-20 16:53 | XMS_ITS | Encounter Summary ---
Author Organization [facility] Address [address] [place] [address] Care Team Providers Care Data Acquisition Technician Name Role Phone Unknown, Provider Primary Care Provider Unava ilable Encounter Details Date Type Department Care Team (Late st Contact Info) Description 06/09/2023 Lab Requisition [facility] Pathology & Laboratory Medicine - [facility] [address] [place] [address] Outr Resulting Lab, Provider Social History Tobacco Use Types Packs/Day Years [...] Procedure Name Priority Date/Time Associated Diagnosis Comments QUANTIFERON MITOGEN (PERFORMABLE) Today 06/08/2023 15:30 EST QUANTIFERON TB2 (PERFORMABLE) Today 06/08/2023 15:30 EST QUANTIFERON TB1 (PERFORMABLE) Today 06/08/2023 15:30 EST QUANTIFERON NIL (PERFORMABLE) Today 06/08/2023 15:30 EST QUANTIFERON INTERPRETATION (PERFORMABLE) Today 06/08/2023 15:30 EST QUANTIFERON TB GOLD PLUS Routine 06/08/2023 15:30 EST documented in this encounter Results * QUANTIFERON INTERPRETATION (PERFORMABLE) (06/08/2023 15:30 EST) Quantiferon Interpretation Negative Negative 06/11/2023 13:38 EST [facility] Comment:No interferon-gamma response to M. tuberculosis antigens was detected. ??Infection with M. tuberculosis is unlikely. A single negative result does not exclude infection with M. tuberculosis. ??In patients at high risk for M. tuberculosis infection, a second test should be considered. TB1 Ag minus Nil 0.00 IU/ml 06/11/19 13:38 EST [facility] TB2 Ag minus Nil 0.00 IU/mL 06/11/19 13:38 EST [facility] Blood VENOUS BLOOD / Unknown 06/08/2023 15:30 EST 06/11/2023 13:18 EST us Provider Outr Resulting Lab IMMUNOLOGY AND SEROL OGY ORDERABLES Final Result Performing Organization Address [facility] de Phone Number [facility] [address] [place] [address] * QUANTIFERON MITOGEN (PERFORMABLE) (06/08/2023 15:30 EST) Blood VENOUS BLOOD / Unknown 06/08/2023 15:30 EST 06/09/2023 21:45 EST us Provider Outr Resulting Lab IMMUNOLOGY AND SEROL OGY ORDERABLES Final Result Performing Organization Address [facility] Co de Phone Number [facility] [address] [place] [address] * QUANTIFERON TB2 (PERFORMABLE) (06/08/2023 15:30 EST) Blood VENOUS BLOOD / Unknown 06/08/2023 15:30 EST 06/09/2023 21:45 EST us Provider Outr Resulting Lab IMMUNOLOGY AND SEROL OGY ORDERABLES Final Result Performing Organization Address [facility] Co de Phone Number [facility] [address] [place] [address] * QUANTIFERON TB1 (PERFORMABLE) (06/08/2023 15:30 EST) Blood VENOUS BLOOD / Unknown 06/08/2023 15:30 EST 06/09/2023 21:45 EST us Provider Outr Resulting Lab IMMUNOLOGY AND SEROL OGY ORDERABLES Final Result Performing Organization Address [facility] Co de Phone Number [facility] [address] [place] [address] * QUANTIFERON NIL (PERFORMABLE) (06/08/2023 15:30 EST) Blood VENOUS BLOOD / Unknown 06/08/2023 15:30 EST 06/09/2023 21:45 EST us Provider Outr Resulting Lab IMMUNOLOGY AND SEROL OGY ORDERABLES Final Result Performing Organization Address [facility] Co de Phone Number [facility] [address] [place] [address] documented in this encounter Visit Diagnoses Not on filedocumented in this encounter Care Teams Data Acquisition Technician Relationship Specialty Start Date End Date Unknown, Provider, PCP - General 02/25/15 documented as of this encounter
--- OUTSIDE RECORDS SUMMARY | 2024-05-20 16:53 | XMS_ITS | Encounter Summary ---
Author Organization [facility] [place] [address] Care Team Providers Care Fruit Peeler Name Role Phone Lisa Pearl Primary Care Provider [phone]- [phone] Reason for Visit * Reason Comments Medication Refill Encounter Details Date Type Department Care Team (Late st Contact Info) Description 02/01/2016 [place] [address] Tierra Rojas MD [facility] [place] [address] Social History Tobacco Use Types Packs/Day Years [...] on filedocumented in this encounter Care Teams Fruit Peeler Relationship Specialty Start Date End Date Lisa Pearl PA [address] [place] [address] PCP - General Family Medicine 11/30/15 12/09/19 documented as of this encounter
--- OUTSIDE RECORDS SUMMARY | 2024-05-20 16:53 | XMS_ITS | Encounter Summary ---
Author Organization [facility] Address [address] [place] [address] Care Team Providers Care Crochet Beader Name Role Phone Unknown, Provider Primary Care Provider Hamida abebe Encounter Details Date Type Department Care Team (Late st Contact Info) Description 08/23/2015 Results Only [facility] [phone] Jayme Suazo PA-C [address] [place] [phone] Social History Tobacco Use Types Packs/Day Years [...] Procedure Name Priority Date/Time Associated Diagnosis Comments PAP TEST- RESULT ONLY Routine 08/23/2015 0:00 EDT documented in this encounter Results * PAP TEST- RESULT ONLY (08/23/2015 0:00 EDT) Pathology Report: CYTOPATHOLOGY REPORT Reports generated via electronic interface contain original data; however they are lacking the format of the original report. Caution should be taken when reading/interpreti ng unformatted reports. Name: ? ANNETTE HERNÁNDEZ ? Accession #: ? [id number] ? : ? 1975 (Age: 40) ??F ?Collect Date: ? 08/23/2015 ? Location: ? [facility] ? Receive Date: ? 08/26/2015 ? Provider: JAYME SUAZO PA-C Copy to: ? Final Report SPECIMEN ADEQUACY ? Satisfactory for Evaluation - transformation zone component present GENERAL CATEGORIZATION ? Negative for Intraepithelial Lesion or Malignancy ?? Last Menstrual Period: 08/15/2015 Specimen/Source: ??Pap Test, Cervix/Endocervix, ThinPrep Imaging System with manual evaluation Document reviewed and electronically signed by: ? Audrey Vieira, CT(ASCP) ? Report ??Date: 09/07/2015 10:06 HPV with Pap Test ? Date Ordered: ? 09/07/2015 ? Status: ?? Signed Out ?Date Complete: ? 09/09/2015 ? By: ??System Interface ? Date Reported: ? 09/09/2015 ? Interpretation RESULT: Negative for HPV. No E6 or E7 mRNA is detected from HPV types 16,18,31,33,35, 39,45,51,52,56,58, 59,66, and 68 by speech pathology assistant mediated amplification. Comments Document reviewed and electronically signed by: ? System Interface ? Report date: 09/09/2015 By the signature above, the attending physician certifies that he/she has personally conducted a gross and/or microscopic examination of the described specimens and rendered or confirmed the above diagnosis. End of Report [facility] 08/23/2015 08/26/2015 us Jayme Suazo PA-C PATHOLOGY ORDERABLES Fin al Result [facility] [address] [place] [address] documented in this encounter Visit Diagnoses Not on filedocumented in this encounter Care Teams Crochet Beader Relationship Specialty Start Date End Date Unknown, Provider, PCP - General 02/25/15 documented as of this encounter
--- OUTSIDE RECORDS SUMMARY | 2024-05-20 16:53 | XMS_ITS | Encounter Summary ---
Author Organization [facility] Address [address] [place] [address] Care Team Providers Care Lingo Cleaner Name Role Phone Unknown, Provider Primary Care Provider Hamida ilrik Encounter Details Date Type Department Care Team (Late st Contact Info) Description 06/09/2023 Lab Requisition [facility] Pathology & Laboratory Medicine - [facility] [address] [place] [address] Outr Resulting Lab, Provider Social History Tobacco [...] Procedure Name Priority Date/Time Associated Diagnosis Comments MEASLES IGG AB Routine 06/08/2023 15:30 EST RUBELLA IGG ANTIBODY Routine 06/08/2023 15:30 EST HEPATITIS B SURFACE ANTIBODY Routine 06/08/2023 15:30 EST VARICELLA IGG ANTIBODY Routine 06/08/2023 15:30 EST MUMPS ANTIBODY IGG Routine 06/08/2023 15 :30 EST documented in this encounter Results * HEPATITIS B SURFACE ANTIBODY (06/08/2023 15:30 EST) Hep B Surface Ab, Quantitative <3.1 See Note mIU/mL 06/11/2023 9:17 EST [facility] Comment: Reference Range for Hep B Surface Ab, Quant: Positive: >= 10.0 mIU/mL Negative: ??< 10.0 mIU/mL Patient is presumed to not be immune to infection with Hepatitis B Virus. Hep B Surface Ab, Qualitative Negative See Note 06/11/2023 9:17 EST [facility] Comment: Reference Range for Hep B Surface Ab, Qual: Unvaccinated: ??Negative Vaccinated: ??Positive Blood VENOUS BLOOD / Unknown 06/08/2023 15:30 EST 06/09/2023 21:51 EST us Provider Outr Resulting Lab CHEMISTRY & BLOOD GA S ORDERABLES Final Result Performing Organization Address [facility] de Phone Number [facility] [address] [place] [address] * MEASLES IGG AB (06/08/2023 15:30 EST) Measles IgG Ab Negative See Note 06/11/2023 10:34 EST [facility] Comment:Absence of detectabl e measles virus IgG antibodies. A negative result generally indicates that the patient is susceptible to measles. Blood VENOUS BLOOD / Unknown 06/08/2023 15:30 EST 06/09/2023 21:51 EST us Provider Outr Resulting Lab IMMUNOLOGY AND SEROL OGY ORDERABLES Final Result Performing Organization Address [facility] de Phone Number [facility] [address] [place] [address] * VARICELLA IGG ANTIBODY (06/08/2023 15:30 EST) Varicella IgG Ab Equivocal See Note 06/11/2023 12:37 EST [facility] Comment:Recommend collecting a second sample for testing in no less than one to two weeks. Blood VENOUS BLOOD / Unknown 06/08/2023 15:30 EST 06/09/2023 21:51 EST us Provider Outr Resulting Lab IMMUNOLOGY AND SEROL OGY ORDERABLES Final Result Performing Organization Address [facility]/State/ZIP Co de Phone Number [facility] [address] [place] [address] * MUMPS ANTIBODY IGG (06/08/2023 15:30 EST) Mumps Antibody IgG Negative See Note 06/11/2023 10:35 EST [facility] Comment:Absence of detectabl e mumps virus IgG antibodies. A negative result generally indicates that the patient is susceptible to mumps. Blood VENOUS BLOOD / Unknown 06/08/2023 15:30 EST 06/09/2023 21:51 EST us Provider Outr Resulting Lab IMMUNOLOGY AND SEROL OGY ORDERABLES Final Result [facility] [address] [place] [address] * RUBELLA IGG ANTIBODY (06/08/2023 15:30 EST) Rubella IgG Ab Positive See Note 06/11/2023 10:37 EST [facility] Comment:Positive for IgG ant ibodies to Rubella virus. Blood VENOUS BLOOD / Unknown 06/08/2023 15:30 EST 06/09/2023 21:51 EST us Provider Outr Resulting Lab CHEMISTRY & BLOOD GA S ORDERABLES Final Result Performing Organization Address City/[facility] Co de Phone Number [facility] [address] [place] [address] documented in this encounter Visit Diagnoses Not on filedocumented in this encounter Care Teams Lingo Cleaner Relationship Specialty Start Date End Date Unknown, Provider, PCP - General 02/25/15 documented as of this encounter
--- OUTSIDE RECORDS SUMMARY | 2024-05-20 16:53 | XMS_ITS | Encounter Summary ---
Author Organization [facility] Address [address] [place] [address] Care Team Providers Care Industrial Cook Name Role Phone Unavailable Primary Care Provider Unavailabl e Encounter Details Date Type Department Care Team (Late st Contact Info) Description 06/10/2004 Results Only [facility] - Map conversion [address] [place] [address] Destiny Sanchez [place], [place] [id number] Social History Tobacco Use Types Packs/Day Years [...] Priority Date/Time Associated Diagnosis Comments CYTOPATHOLOGY Routine 06/10/2004 0:00 EST documented in this encounter Results * CYTOPATHOLOGY (06/10/2004 0:00 EST) Pathology Report: CYTOPATHOLOGY REPORT Reports generated via electronic interface contain original data; however they are lacking the format of the original report. Caution should be taken when reading/interpreti ng unformatted reports. Name: ? ANNETTE DELGADO ? Accession #: ? [id number] : ? 1975 (Age: 29) ??F ?Collect Date: ? 06/10/2004 Location: ? [facility] ? Receive Date: ? 06/14/2004 Provider: ?DESTINY SANCHEZ CNM Copy to: ? Specimen/Source: ?ThinPrep Pap Test, Cervix/Endocervix Last Menstrual Period: ? 04/20/04 Menstrual/Pregnanc y Status: ? Other: ? HPVA - HPV testing requested if ASC-US on the current ThinPrep Pap test. ? SPECIMEN ADEQUACY ? Satisfactory for Evaluation - transformation zone component present GENERAL CATEGORIZATION ? Negative for Intraepithelial Lesion or Malignancy ? Document reviewed and electronically signed by: ? Feroz Louie, CT(ASCP) ? Report Date: ??06/17/2004 08:52 End of Report [facility] 06/10/2004 06/14/2004 us Destiny Sanchez CNM PATHOLOGY ORDERABLES Final Res ult [facility] [address] [place] [address] documented in this encounter Visit Diagnoses Not on filedocumented in this encounter
--- OUTSIDE RECORDS SUMMARY | 2024-05-20 16:53 | XMS_ITS | Encounter Summary ---
Author Organization [facility] Address [address] [place] [address] Care Team Providers Care Carpenter Wooden Tank Erecting Name Role Phone Unknown, Provider Primary Care Provider Unava ilable Encounter Details Date Type Department Care Team (Latest Contact Info) Description 12/06/2016 19:08 EDT - 12/06/2016 23:59 EDT Hospital Encounter [address] [address] Unknown, ProviderMD Discharge Disposition: Auto Discharge Social History Tobacco Use Types Packs/Day Years Used Date Smoking Tobacco: Never Assessed Comments Unknown Sex and Gender Information Value Date Recorded Sex Assigned at Not on file Legal Sex Female 18:26 EST Gender Identity Not on file Sexual Orientation Not on file documented as of this encounter Discharge Disposition Disposition Code Departure Means Destination Auto Discharge Home documented in this encounter Plan of Treatment Not on file documented as of this encounter Visit Diagnoses Not on filedocumented in this encounter Care Teams Carpenter Wooden Tank Erecting Relationship Specialty Start Date End Date Unknown, ProviderMD PCP - General 02/25/15 documented as of this encounter
--- OUTSIDE RECORDS SUMMARY | 2024-05-20 16:53 | XMS_ITS | Encounter Summary ---
Author Organization [facility] [place] [address] Care Team Providers Care Strategic Planning Director Name Role Phone Lisa Pearl Primary Care Provider +1- [phone] Reason for Visit * Reason Onset Date Comments Medication Refill 01/26/2017 Encounter Details Date Type Department Care Team (Late st Contact Info) Description 01/26/2017 [place] [address] Jil Miller MA Social History Tobacco Use Types Packs/Day Years [...] on filedocumented in this encounter Care Teams Strategic Planning Director Relationship Specialty Start Date End Date Lisa Pearl PA [address] [place] [address] PCP - General Family Medicine 11/30/15 12/09/19 documented as of this encounter
--- OUTSIDE RECORDS SUMMARY | 2024-05-20 16:53 | XMS_ITS | Encounter Summary ---
Author Organization [facility] Address [address] [place] [address] Care Team Providers Care Electronic Development Technician Name Role Phone Unavailable Primary Care Provider Unavailabl e Encounter Details Date Type Department Care Team (Late st Contact Info) Description 02/10/2009 Orders Only [facility] Laboratory Services - [facility] ([facility]) [address], [place] [id number] Kamlesh Marshall MD [facility] [address] [place], [place] [id number] Social History Tobacco Use Types Packs/Day Years [...] Procedure Name Priority Date/Time Associated Diagnosis Comments HPV DETECTION, HIGH RISK TYPES Routine 02/10/2009 14:41 EDT CYTOPATHOLOGY Routine 02/10/2009 0:00 EDT documented in this encounter Results * HUMAN PAPILLOMA VIRUS DNA TEST (02/10/2009 14:41 EDT) Specimen Description Cervix, ThinPrep vial [facility] Result Negative for HPV types 16, 18, 31, 33, 35, 39, 45, 51, 52, 56, 58, 59, and 68. [facility] Report Status Final 02/24/2009 [facility] 02/10/2009 14:4 1 EDT 02/18/2009 14:41 EDT us Kamlesh Ready MD MICROBIOLOGY - GENERAL ORDERABLE S Final Result [facility] [address] [place] [address] * CYTOPATHOLOGY (02/10/2009 0:00 EDT) Pathology Report: CYTOPATHOLOGY REPORT ? Reports generated via electronic interface contain original data; ? however they are lacking the format of the original report. ? Caution should be taken when reading/interpreti ng unformatted reports. ? Name: ? ANNETTE HERNÁNDEZ ? Accession #: ? [id number] ? : ? 1975 (Age: 33) ??F ?Collect Date: ? 02/10/2009 ? Location: ? [facility] ? Receive Date: ? 02/11/2009 ? Provider: ?KAMLESH READY MD ? Copy to: ? Specimen/Source: ?Pap Test, Cervix/Endocervix, ThinPrep Imaging System ? with manual evaluation ? Last Menstrual Period: ? 10/11/09 ? Other: ? HPVDX - HPV testing requested regardless of diagnosis on current ThinPrep Pap ?? test. ? SPECIMEN ADEQUACY ? Satisfactory for Evaluation ? - transformation zone component present ? GENERAL CATEGORIZATION ? Negative for Intraepithelial Lesion or Malignancy ? Document reviewed and electronically signed by: ? Feroz NShaheed Louie, CT(ASCP) ? Report Date: ??02/18/2009 12:42 ? End of Report ? [facility] 02/10/2009 02/11/2009 us Kamlesh Marshall MD PATHOLOGY ORDERABLES Final Resul t [facility] [address] [place] [address] documented in this encounter Visit Diagnoses Not on filedocumented in this encounter
--- OUTSIDE RECORDS SUMMARY | 2024-05-20 16:53 | XMS_ITS | Encounter Summary ---
Author Organization [facility] Address [facility] [place] [address] Care Team Providers Care Mill Attendant Name Role Phone Unknown Primary Care Provider Unavailabl e Encounter Details Date Type Department Care Team (Late st Contact Info) Description 02/13/2008 Orders [place] [phone] Linwood Chaney MD Social History Tobacco Use Types Packs/Day Years Used Date Smoking Tobacco: Never Assessed Sex and Gender Information Value Date Recorded Sex Assigned at Not on file Gender Identity Not on file Sexual Orientation Not on file documented as of this encounter Plan of Treatment Not on file documented as of this encounter Procedures Procedure Name Priority Date/Time Associated Diagnosis Comments NON-RENTAL COUNTER CLERK FINAL REPORT Routine 02/13/2008 4:05 PM EDT documented in this encounter Results * Non-Oxygen Furnace Operator Final Report (02/13/2008 4:05 PM EDT) Non-Oxygen Furnace Operator Final Report [id number] ? Location: The signing pathologist has (i) examined the relevant preparation(s) for the specimen(s) and (ii) rendered or confirmed the diagnosis(es). . ? Pathology Non-Oxygen Furnace Operator Cytology Final Report Clinical Information Specimen Source: ?Thyroid/FNA: left Clinical History/Impression: ?? 1.9 cm isoechoic left nodule. R/o mal. Gross Description: ?? Received in Cytorich red, approximately 10 ml. total volume of clear, pink fluid, with light flecks. Total Preparation: Diff Quik 2; Pap Stain 2; Cell Block 1. Interpretation Specimen submitted is satisfactory. Diagnosis Atypical 02/14/08 ?Screened by: ? JS ?Rescreened by: ?? EJG,EJG 02/16/08 ?Verified by: ? Hawa COON, Angel Tirado ? Cytopathologist ? (Electronic Signature) Comment Moderately to highly cellular aspirate. Follicular epithelial cells arranged both as flat sheets and as microfollicles are present. Colloid is not conspicuous (a very small amount is noted). Some of the epithelial cells display mild prominence of nucleoli and occasional nuclear grooves are noted; nuclear pseudoinclusions are not identified. A small number of Hurthle cells are present. A small number of hemosiderin-laden histiocytes are evident. The aspirate might represent a goiter, but the possibility of a neoplasm (e.g. papillary carcinoma or a follicular neoplasm) cannot be excluded. YONAS PUGA 02/13/2008 4:05 PM EDT Linwood Chaney MD PATHOLOGY/CYTOLOGY O RDERABLES YONAS PUGA documented in this encounter Visit Diagnoses Not on filedocumented in this encounter Care Teams Mill Attendant Relationship Specialty Start Date End Date Unknown None PCP - General 12/10/19 documented as of this encounter
--- OUTSIDE RECORDS SUMMARY | 2024-05-20 16:53 | XMS_ITS | Encounter Summary ---
Author Organization [facility] Address [facility] [place] [address] Care Team Providers Care Career Technical Counselor Name Role Phone Unknown Primary Care Provider Unavailabl e Encounter Details Date Type Department Care Team (Late st Contact Info) Description 02/13/2008 Orders [place] [id number] Linwood Chaney MD Social History Tobacco Use Types Packs/Day Years Used Date Smoking Tobacco: Never Assessed Sex and Gender Information Value Date Recorded Sex Assigned at Not on file Gender Identity Not on file Sexual Orientation Not on file documented as of this encounter Plan of Treatment Not on file documented as of this encounter Procedures Procedure Name Priority Date/Time Associated Diagnosis Comments NON-EXTENSION SERVICE SPECIALIST FINAL REPORT Routine 02/13/2008 3:59 PM EDT documented in this encounter Results * Non-Land Department Head Final Report (02/13/2008 3:59 PM EDT) Non-Land Department Head Final Report [id number] ? Location: The signing pathologist has (i) examined the relevant preparation(s) for the specimen(s) and (ii) rendered or confirmed the diagnosis(es). . ? Pathology Non-Land Department Head Cytology Final Report Clinical Information Specimen Source: ?Thyroid/FNA: right Clinical History/Impression: ?? 2.8 cm isoechoic right nodule. R/o mal. Gross Description: ?? Received in Cytorich red, approximately 10 ml. total volume of clear, pink fluid, with dark flecks. Total Preparation: Diff Quik 2; Pap Stain 2; Cell Block 1. Interpretation Specimen submitted is satisfactory. Diagnosis Macrofollicular Pattern (see Comment). 02/14/08 ?Screened by: ? JS ?Rescreened by: ?? EJG,EJG 02/16/08 ?Verified by: ? Hawa COON, Angel Tirado ? Cytopathologist ? (Electronic Signature) Comment Cytologic preservation: ?? Adequate. Cellularity (follicular cells): ?? Moderate cellularity. Colloid: ?? Very small amount noted (inconspicuous). Macrophages: ?? Moderate quantity (hemosiderin-laden). Other: ?? A subset of the epithelial cells display Hurthle cell change. Occasional nuclear grooves are noted. Nuclear pseudoinclusions are not seen. Architectural pattern: ?? Macrofollicular pattern (see note). Note: ?? Favor a goiter. ?? Recommend clinicopathologic correlation. YONAS PUGA 02/13/2008 3:59 PM EDT Linwood Chaney MD PATHOLOGY/CYTOLOGY O RDERABLES YONAS PUGA documented in this encounter Visit Diagnoses Not on filedocumented in this encounter Care Teams Career Technical Counselor Relationship Specialty Start Date End Date Unknown None PCP - General 12/10/19 documented as of this encounter
--- OUTSIDE RECORDS SUMMARY | 2024-05-20 16:53 | XMS_ITS | Encounter Summary ---
Author Organization [facility] Address [address] [place] [address] Care Team Providers Care Lepidopterist Name Role Phone Unknown, Provider Primary Care Provider Hamida ilrik Encounter Details Date Type Department Care Team (Late st Contact Info) Description 04/25/2020 Lab Requisition [facility] Pathology & Laboratory Medicine - [facility] [address] [place] [address] Dereck Larose MD [address] [place] [id number] Abnormal uterine and vaginal bleeding, unspecified Social History Tobacco Use Types Packs/Day Years [...] Procedure Name Priority Date/Time Associated Diagnosis Comments ANATOMIC PATHOLOGY - DOWNTIME Today 03/01/2020 13:55 EST Abnormal uterine and vaginal bleeding, unspecified documented in this encounter Results * ANATOMIC PATHOLOGY - DOWNTIME (03/01/2020 13:55 EST) Final Diagnosis See scanned downtime report. 04/25/2020 10:51 EST [facility] Attestation Report electronically released by Cate Chaudhary on 04/25/20 . 04/25/2020 10:51 EST [facility] Performing Lab [facility] 04/25/2020 10:51 EST [facility] Scanned Images 04/25/2020 10:51 EST [facility] Tissue ENTIRE ENDOMETRIUM / Unknown 03/01/2020 13:55 EST 04/25/2020 10:51 EST us Dereck Larose MD PATHOLOGY ORDERABLES Final Resul t [facility] [address] [place] [address] documented in this encounter Visit Diagnoses Diagnosis Abnormal uterine and vaginal bleeding, unspecified documented in this encounter Care Teams Lepidopterist Relationship Specialty Start Date End Date Unknown, Provider, PCP - General 02/25/15 documented as of this encounter
--- OUTSIDE RECORDS SUMMARY | 2024-05-20 16:53 | XMS_ITS | Encounter Summary ---
Author Organization [facility] Address [facility] [place] [address] Care Team Providers Care Die Cutter Apprentice Name Role Phone Unknown Primary Care Provider Unavailabl e Encounter Details Date Type Department Care Team (Late st Contact Info) Description 03/18/2008 Orders [place] [id number] Linwood Chaney MD Social History Tobacco Use Types Packs/Day Years Used Date Smoking Tobacco: Never Assessed Sex and Gender Information Value Date Recorded Sex Assigned at Not on file Gender Identity Not on file Sexual Orientation Not on file documented as of this encounter Plan of Treatment Not on file documented as of this encounter Procedures Procedure Name Priority Date/Time Associated Diagnosis Comments NON-STATE FARM AGENT TEAM MEMBER FINAL REPORT Routine 03/18/2008 2:50 PM EST documented in this encounter Results * Non-Director Of Surgery Final Report (03/18/2008 2:50 PM EST) Non-Director Of Surgery Final Report [id number] ? Location: The signing pathologist has (i) examined the relevant preparation(s) for the specimen(s) and (ii) rendered or confirmed the diagnosis(es). . ? Pathology Non-Director Of Surgery Cytology Final Report Clinical Information Specimen Source: ?Thyroid/FNA, Left Clinical History/Impression : ?? 1.6cm (L) thyroid nodule. ?? Prev. FNA atypical. Low risk ?? US appearance - similar to cytologically ?? benign nodule on right. ?? R/o mal. Gross Description: ?? Received ??in Cytorich red, ??approximately 10 ml. total volume of ?? cloudy, pink fluid. ?? Total Preparation: Diff Quik 2; Pap Stain 2; Cell Block 1. Interpretation Specimen submitted is satisfactory. Diagnosis Macrofollicular Pattern (see Comment). 03/20/08 ?Screened by: ? JS ?Rescreened by: ?? SBT,SBT 03/22/08 ?Verified by: ? Reginald COON, Annette Zepeda. ? Cytopathologist ? (Electronic Signature) Comment Cytologic preservation: ?? Adequate. Cellularity (follicular cells): ?? Moderately cellular. Colloid: ?? Moderate watery colloid. Macrophages: ?? Abundant hemosiderin laden macrophages. Architectural pattern: ?? Predominantly macrofollicular pattern (see note). The abundance of hemosiderin laden macrophages are consistent with recent hemorrhage. ??Occasional Hurthle cells are suggestive of a reactive process. Note: ?? Compatible with a goiter/colloid nodule. YONAS PUGA 03/18/2008 2:50 PM EST Linwood Chaney MD PATHOLOGY/CYTOLOGY O RDERABLES YONAS PUGA documented in this encounter Visit Diagnoses Not on filedocumented in this encounter Care Teams Die Cutter Apprentice Relationship Specialty Start Date End Date Unknown None PCP - General 12/10/19 documented as of this encounter
--- OUTSIDE RECORDS SUMMARY | 2024-05-20 16:53 | XMS_ITS | Encounter Summary ---
Author Organization [facility] Address [address] [place] [address] Care Team Providers Care Telephone Operator Name Role Phone Unavailable Primary Care Provider Unavailabl e Encounter Details Date Type Department Care Team (Late st Contact Info) Description 11/05/2007 Before PRISM Converted Visit (Maple) [facility] - Maple conversion [address] [place] [address] Nelly Dorman, [facility] [address] [place] [address] [place] [address] Social History Tobacco Use Types Packs/Day Years [...] Priority Date/Time Associated Diagnosis Comments CYTOPATHOLOGY Routine 11/05/2007 0:00 EDT documented in this encounter Results * CYTOPATHOLOGY (11/05/2007 0:00 EDT) Pathology Report: CYTOPATHOLOGY REPORT ? Reports generated via electronic interface contain original data; ? however they are lacking the format of the original report. ? Caution should be taken when reading/interpreti ng unformatted reports. ? Name: ? ANNETTE DELGADO J ? Accession #: ? [id number] ? : ? 1975 (Age: 32) ??F ?Collect Date: ? 11/05/2007 ? Location: ? [facility] ? Receive Date: ? 11/06/2007 ? Provider: ?NELLY DMITRY DIABETIC EDUCATOR ? Copy to: ? Specimen/Source: ?ThinPrep Pap Test, Cervix/Endocervix, processed on CytASSIA ThinPrep Imaging System, with manual evaluation ? Last Menstrual Period: ? 06/25/08 ? Hormonal/Contracep tive Status: ? Oral contraceptives ? Other: ? HPVA - HPV testing requested if ASC-US on the current ThinPrep Pap test. ? SPECIMEN ADEQUACY ? Satisfactory for Evaluation ? - transformation zone component present ? GENERAL CATEGORIZATION ? Negative for Intraepithelial Lesion or Malignancy ? Document reviewed and electronically signed by: ? Reba Engle, [place](ASCP)(IAC) ? Report Date: ??11/12/2007 15:17 ? End of Report ? [facility] 11/05/2007 11/06/2007 us Nelly Dorman DIABETIC EDUCATOR PATHOLOGY ORDERABLES Final R esult [facility] [address] [place] [address] documented in this encounter Visit Diagnoses Not on filedocumented in this encounter
--- OUTSIDE RECORDS SUMMARY | 2024-05-20 16:53 | XMS_ITS | Encounter Summary ---
Author Organization [facility] Address [address] [place] [address] Care Team Providers Care Seam Closer Name Role Phone Unknown, Provider Primary Care Provider Unava ilable Encounter Details Date Type Department Care Team (Late st Contact Info) Description 05/11/2023 Lab Requisition [facility] Pathology & Laboratory Medicine - [facility] [address] [place] [address] Outr Resulting Lab, Provider Social History Tobacco [...] Procedure Name Priority Date/Time Associated Diagnosis Comments RHEUMATOID FACTOR Routine 05/11/2023 11: 24 EST documented in this encounter Results * RHEUMATOID FACTOR (05/11/2023 11:24 EST) Rheumatoid Factor <8.6 <12.0 IU/mL 05/11/2023 18:31 EST [facility] Blood VENOUS BLOOD / Unknown 05/11/2023 11:24 EST 05/11/2023 17:40 EST us Provider Outr Resulting Lab CHEMISTRY & BLOOD GA S ORDERABLES Final Result [facility] [address] [place] [address] documented in this encounter Visit Diagnoses Not on filedocumented in this encounter Care Teams Seam Closer Relationship Specialty Start Date End Date Unknown, Provider, PCP - General 02/25/15 documented as of this encounter
--- OUTSIDE RECORDS SUMMARY | 2024-05-20 16:53 | XMS_ITS | Encounter Summary ---
Author Organization [facility] Address [address] [place] [address] Care Team Providers Care Cow Puncher Name Role Phone Unknown, Provider Primary Care Provider Unava ilable Encounter Details Date Type Department Care Team (Late st Contact Info) Description 05/04/2020 Lab Requisition [facility] Pathology & Laboratory Medicine - [facility] [address] [place] [address] Nelly Dorman, [address] [phone] Encounter for other general examination Social History Tobacco Use Types Packs/Day Years [...] Name Priority Date/Time Associated Diagnosis Comments PAP TEST Today 05/03/2020 9:30 EST Encounter for other general examination HPV DNA DETECTION WITH GENOTYPING, PCR Today 05/03/2020 9:30 EST Encounter for other general examination documented in this encounter Results * HUMAN PAPILLOMAVIRUS (HPV) DETECTION-HIGH RISK TYPES (05/03/2020 9:30 EST) HPV other High Risk types, PCR Negative Negative 05/12/2020 15:21 EST [facility] Comment:No E6 or E7 mRNA is detected from HPV types 16,18,31,33,35,39,45,51,52,56,58,59,66, and 68 by trimmer machine operator mediated amplification. Papanicolaou smear specimen (specimen) CERVIX UTERI STRUCTURE / Unknown 05/03/2020 9:30 EST 05/11/2020 8:21 EST Nelly Senaod ARCHITECTURAL REPRESENTATIVE MICROBIOLOGY - GENERAL ORDER KHARI Final Result [facility] [address] [place] [address] * PAP TEST (05/03/2020 9:30 EST) Specimens A. Cervix and/or Endocervix , ThinPrep Imaging System with Manual Evaluation 05/12/2020 15:21 [facility] Specimen Adequacy Satisfactory for Evaluation - transformation zone component present Scant due to excessive blood 05/12/2020 15:21 [facility] General Categorization Negative for intraepithelial lesion or malignancy 05/12/2020 15:21 [facility] Attestation . 05/12/2020 15:21 [facility] at 1521 Clinical History See below 05/12/19 15:21 [facility] HPV The result for the Human Papillomavirus (HPV) Detection-High Risk Types is Negative. No E6 or E7 mRNA is detected from HPV types 16,18,31,33,35,39 ,45,51,52,56,58,5 9,66, and 68 by trimmer machine operator mediated amplification.Helen ting was performed on specimen [id number] and was resulted on 05/12/2020 1517 EST by YRIS, LAB INSTRUMENT RESULTS IN 05/12/2020 15:21 [facility] Performing Lab [facility] 05/12/2020 15:21 [facility] Scanned Images 05/12/2020 15:21 [facility] Papanicolaou smear specimen (specimen) CERVIX UTERI STRUCTURE / Unknown 05/03/2020 9:30 EST 05/04/2020 14:55 EST us Nelly Dorman ARCHITECTURAL REPRESENTATIVE PATHOLOGY ORDERABLES Final R esult [facility] [address] [place] [address] documented in this encounter Visit Diagnoses Diagnosis Encounter for other general examination documented in this encounter Care Teams Cow Puncher Relationship Specialty Start Date End Date Unknown, Provider, PCP - General 02/25/15 documented as of this encounter
--- OUTSIDE RECORDS SUMMARY | 2024-05-20 16:53 | XMS_ITS | Encounter Summary ---
Author Organization [facility] Address [address] [place] [address] Care Team Providers Care Manager Risk Management Name Role Phone Unavailable Primary Care Provider Unavailabl e Encounter Details Date Type Department Care Team (Late st Contact Info) Description 06/22/2000 Results Only [facility] - Maple conversion [address] [place] [address] Berta Denson NP Social History Tobacco Use Types Packs/Day Years [...] Priority Date/Time Associated Diagnosis Comments CYTOPATHOLOGY Routine 06/22/2000 0:00 EST documented in this encounter Results * CYTOPATHOLOGY (06/22/2000 0:00 EST) Pathology Report: CYTOPATHOLOGY REPORT Reports generated via electronic interface contain original data; however they are lacking the format of the original report. Caution should be taken when reading/interpreti ng unformatted reports. Name: ? ANNETTE HERNÁNDEZ ? Accession #: ? [id number] : ? 1975 (Age: 25) ??F ?Collect Date: ? 06/22/2000 Location: ? [facility] ? Receive Date: ? 06/25/2000 Provider: ?BERTA DENSON PROJECT CONTROL OFFICER Copy to: ? Specimen/Source: ?ThinPrep Pap Test, Cervix/Endocervix Last Menstrual Period: ? 06/08/00 ? SPECIMEN ADEQUACY ? Satisfactory for evaluation. GENERAL CATEGORIZATION ? Within Normal Limits ? Document reviewed and electronically signed by: ? Reba Engle, GUERDA(ASCP)(IAC) ? Report Date: ??06/25/2000 14:26 End of Report [facility] 06/22/2000 06/25/2000 us Berta Denson NP PATHOLOGY ORDERABLES Final Re sult [facility] [address] [place] [address] documented in this encounter Visit Diagnoses Not on filedocumented in this encounter
--- OUTSIDE RECORDS SUMMARY | 2024-05-20 16:53 | XMS_ITS | Encounter Summary ---
Author Organization [facility] Address [address] [place] [address] Care Team Providers Care Assistive Technology Trainer Name Role Phone Unavailable Primary Care Provider Unavailabl e Encounter Details Date Type Department Care Team (Late st Contact Info) Description 07/04/2001 Results Only [facility] - Maple conversion [address] [place] [address] Berta Kearns NP Social History Tobacco Use Types Packs/Day [...] Priority Date/Time Associated Diagnosis Comments CYTOPATHOLOGY Routine 07/04/2001 0:00 EST documented in this encounter Results * CYTOPATHOLOGY (07/04/2001 0:00 EST) Pathology Report: CYTOPATHOLOGY REPORT Reports generated via electronic interface contain original data; however they are lacking the format of the original report. Caution should be taken when reading/interpreti ng unformatted reports. Name: ? ANNETTE HERNÁNDEZ ? Accession #: ? [id number] : ? 1975 (Age: 26) ??F ?Collect Date: ? 07/04/2001 Location: ? [facility] ? Receive Date: ? 07/05/2001 Provider: ?BERTA KEARNS ADJUNCT PSYCHOLOGY PROFESSOR Copy to: ? Specimen/Source: ?ThinPrep Pap Test, Cervix/Endocervix Last Menstrual Period: ? 06/27/01 ? SPECIMEN ADEQUACY ? Satisfactory for Evaluation - transformation zone component present GENERAL CATEGORIZATION ? Negative for Intraepithelial Lesion or Malignancy ? Document reviewed and electronically signed by: ? Destiny Gilbert, SCT(ASCP) ? Report Date: ??07/10/2001 11:09 End of Report [facility] 07/04/2001 07/05/2001 us Berta Kearns NP PATHOLOGY ORDERABLES Final Re sult [facility] [address] [place] [address] documented in this encounter Visit Diagnoses Not on filedocumented in this encounter
--- OUTSIDE RECORDS SUMMARY | 2024-05-20 16:53 | XMS_ITS | Encounter Summary ---
Author Organization [facility] [place] [address] Care Team Providers Care Sys Dir Name Role Phone None Primary Care Provider Unavailabl e Encounter Details Date Type Department Care Team (Late st Contact Info) Description 11/19/2015 Orders [place] [address] Tierra Rojas MD [facility] [place] [address] Hypothyroidism, unspecified type Social History Tobacco Use Types Packs/Day Years Used Date Smoking Tobacco: Never Smokeless Tobacco: Never Sex and Gender Information Value Date Recorded Sex Assigned at Not on file Gender Identity Not on file Sexual Orientation Not on file documented as of this encounter Plan of Treatment Not on file documented as of this encounter Visit Diagnoses Diagnosis Hypothyroidism, unspecified type documented in this encounter Care Teams Sys Dir Relationship Specialty Start Date End Date None None PCP - General 11/05/14 11/29/15 documented as of this encounter
--- OUTSIDE RECORDS SUMMARY | 2024-05-20 16:53 | XMS_ITS | Encounter Summary ---
Author Organization [facility] [address] Care Team Providers Care Cherry Grower Name Role Phone None Primary Care Provider Unavailabl e Reason for Visit * Reason Comments Thyroid Nodule Encounter Details Date Type Department Care Team (Late st Contact Info) Description 11/05/2014 2:00 PM EDT Office Visit [place] [address] Tierra Rojas MD [facility] [place] [address] Thyroid nodule Discharge Disposition: Home Social History Tobacco Use Types Packs/Day Years Used Date Smoking Tobacco: Never Smokeless Tobacco: Never Sex and Gender Information Value Date Recorded Sex Assigned at Not on file Gender Identity Not on file Sexual Orientation Not on file documented as of this encounter Last Filed Vital Signs Vital Sign Reading Time Taken Comments Blood Pressure 114/74 11/05/2014 1:49 PM EDT Pulse 83 11/05/2014 1:49 PM EDT Temperature - - Respiratory Rate - - Oxygen Saturation - - Inhaled Oxygen Concentration - - Weight 47.6 kg (105 lb) 11/05/2014 1:49 PM EDT Height 152.4 cm (5') 11/05/2014 1:49 PM EDT Body Mass Index 20.51 11/05/2014 1:49 PM EDT documented in this encounter Progress Notes * Tierra Rojas MD - 11/05/2014 2:05 PM EDT Images from the original note were not included. Endocrine Clinic Name: Annette Hernández : 1975 PCP: None Provided by: Tierra Rojas MD, PhD, FACE Date: 11/05/2014 Reason for visit: Endocrine visit: Annette Hernández is a 39 y.o. year old female who presents for follow-up of bilateral thyroid nodules. FNA of the right nodule was benign. FNA of the left nodule yielded atypical cytology, but repeat FNA was cytologically benign. She has been doing well without any thyroid compressive symptoms: Globus sensation: No Dysphagia: No Dysphonia: No Dyspnea: No Symptoms of thyroid hormone excess / deficiency Heat intolerance: No Cold intolerance: No Diarrhea: No Constipation: No Weight loss / gain: lost wt 3 lbs over a year Anxiety: No Jitteriness: No Tremors: No Palpitations: No Difficulty concentrating: No Review of Systems See HPI. All other systems negative. PMH: Patient Active Problem List Diagnosis Code ??? CIS - Thyroid nodule T999.0 ??? Thyroid nodule 241.0 Current Outpatient Prescriptions on File Prior to Visit Medication Sig Dispense Refill ??? sertraline (ZOLOFT) 50 mg tablet Take 50 mg by mouth daily. ??? levothyroxine (SYNTHROID) 75 mcg tablet Take 75 mcg by mouth daily. Take 1/2 tablet ??? triamcinolone (NASACORT) 55 mcg nasal inhaler 2 sprays by Nasal route daily as needed. ??? BETAMETHASONE DIPROPIONATE TOP No current facility-administered medications on file prior to visit. Allergy: Allergies Allergen Reactions ??? Pcn [Penicillins] Rash ??? Milk Family History: +Graves' disease Social History: History Substance Use Topics ??? Smoking status: Never Smoker ??? Smokeless tobacco: Never Used ??? Alcohol Use: Not on file Physical Exam BP 114/74 Pulse 83 Ht 152.4 cm (5') Wt 47.628 kg (105 lb) BMI 20.51 kg/m2 GENERAL: A+O x 3; Comfortable; Mood [...] pretibial myedema. THYROID / NECK ULTRASOUND: Date: 11/05/2014 Indication: Thyroid nodule follow up Real time images of the neck were obtained using a MZL [employer]ine [employer] US machine and an [id number] broadband linear array transducer. All measurements are given as AP x Transverse x Longitudinal Right Lobe: The right lobe measures: 1.8x2.3x3.3 cm and is of normal echotexture. There is an iso-echoic nodule in the right upper and mid lobe that measures: 11/05/14: 1.7x2.0x2.9 cm 10/2013: 1.5 x 2 x 2.9 cm 08/01/2011 1.5x1.8x3.2cm 08/12/2009 1.5x1.7x2.5cm 08/05/2008 1.5x1.7x2.7cm 02/13/2008 1.5x1.7x2.8cm There is a small central area of likely cystic degeneration. The nodule has sharp margins; There are no intranodular calcifications; There is minimal flow On doppler. Left Lobe: The left lobe measures: 1.4x1.1x3.2 cm and is of normal echotexture. There is an mixed nodule with cystic degeneration occupying about 30% and solid part is iso-echoic in the left lobe that measures: 11/05/14: 1.2x1.4x2.4 cm 10/2013: 1.2 x 1.4 x 2.5 cm 08/01/2011 1.2x1.3x2.0cm 08/12/2009 1.1x1.0x1.8cm 08/05/2008 1.0x1.1x1.8cm 02/13/2008 1.0x1.2x1.9cm The nodule has sharp margins; There are no intranodular calcifications; There is minimal flow on doppler. Lateral Neck: No morphologically abnormal lymph nodes Impression: Homogenous asymmetric thyroid gland R>L lobe Stable right and left isoechoic nodules with small areas of cystic degeneration. ASSESSMENT / PLAN: Bilateral thyroid nodules of large size without pressure symptoms and clinically euthyroid (on LT4 37.5 mcg qd) Right nodule cytologically benign Jan 2008. Left nodule cytology was originally atypical, but was benign on repeat. All nodules were isoechoic with no high risk US features and stable in size. Agree with previous US by Dr. Chaney which mentioned a small area of cystic degeneration of <20-30%. Clinically euthyroid and no compressive symptoms. Indication for surgery would be enlarging and compressing nodules Indication for I-131 ablation would be autonomous or functioning nodule if TSH is trending down <1.0 despite reducing LT4 dose. 2. Hypothyroid : currently on levothyroxine 37.5 mcg qd and has been doing well. To continue the same dose. Dose adjustments by PCP to keep TSH in low normal range of 1.0-2.0 or <2.5 if possible for nodule suppression. Plan: - TSH today - Adjust T4 dose PRN. Goal TSH around the low end of lower limit of normal range (1.0-2.0 and <2.5 if possible for nodule suppression without causing hyperthyroid). - Addendum: TSH 2.6 today, so she can increase LT4 dose from 37.5 to 50 mcg qd for now. - To check lab for TSH with PCP in 2 months locally and adjust LT4 dose as indicated - RTC 1 yr & will recheck US for the nodule size to ensure stability or reduce in size with higher dose of LT4 to keep TSH 1.0-2.0 range for her. Tierra Rojas MD documented in this encounter Miscellaneous Notes * Addendum Note - Tierra Rojas MD - 11/05/2014 5:36 PM EDTAddended by: TIERRA ROJAS on: 11/05/2014 05:36 PM Modules accepted: Orders, Medications documented in this encounter Plan of Treatment Not on file documented as of this encounter Procedures Procedure Name Priority Date/Time Associated Diagnosis Comments TSH Routine 11/05/2014 2:43 PM EDT Thyroid nodule documented in this encounter Results * TSH (11/05/2014 2:43 PM EDT) Thyroid Stimulating Hormone 2.60 0.27 - 4.20 mcIU/mL CERNER MILLENNIUM Blood specimen (specimen) 11/05/2014 2:43 PM EDT 11/05/2014 2:57 PM EDT Narrative Resulting Agency Comment Spec In Lab Tierra Rojas MD CHEMISTRY ORDERAB LES YONAS [facility] documented in this encounter Visit Diagnoses Diagnosis Thyroid nodule Nontoxic uninodular goiter documented in this encounter Care Teams Cherry Grower Relationship Specialty Start Date End Date None None PCP - General 11/05/14 11/29/15 documented as of this encounter
--- OUTSIDE RECORDS SUMMARY | 2024-05-20 16:53 | XMS_ITS | Encounter Summary ---
Author Organization [facility] [place] [address] Care Team Providers Care Master Cook Name Role Phone Rossy Marshall MD Primary Care Provider [phone] Reason for Visit * Reason Comments Thyroid Problem Encounter Details Date Type Department Care Team (Late st Contact Info) Description 08/01/2011 11:30 AM EDT Office [place] [address] Linwood Chaney MD Thyroid nodule (Primary Dx) Discharge Disposition: Home Social History Tobacco Use Types Packs/Day Years Used Date Smoking Tobacco: Never Sex and Gender Information Value Date Recorded Sex Assigned at Not on file Gender Identity Not on file Sexual Orientation Not on file documented as of this encounter Last Filed Vital Signs Vital Sign Reading Time Taken Comments Blood Pressure 105/77 08/01/2011 11:24 AM EDT Pulse 88 08/01/2011 11:24 AM EDT Temperature - - Respiratory Rate 20 08/01/2011 11:24 AM EDT Oxygen Saturation - - Inhaled Oxygen Concentration - - Weight 49 kg (108 lb) 08/01/2011 11:24 AM EDT Height 152.4 cm (5') 08/01/2011 11:24 AM EDT Body Mass Index 21.09 08/01/2011 11:24 AM EDT documented in this encounter Progress Notes * Linwood Chaney MD - 08/01/2011 11:33 AM EDT Annette Hernández is a very pleasant 36 year old female who has a history of a left thyroid nodule. José Manuel had two thyroid ultrasounds which have revealed a 1.8cm left nodule. Two nuclear medicine thyroid scans have revealed homogeneous uptake. She was seen in the endocrine section 02/13/2008. In-office US revealed bilateral isoechoic nodule. FNA of the right nodule was benign. FNA of the left nodule yielded atypical cytology, but repeat FNA was cytologically benign. F/U US in 2008 and 2009 was unchanged. History of H+N XRT exposure: No Family history of thyroid cancer: No Thyroid Compressive symptoms: Globus sensation: No Dysphagia: No Dysphonia: No Dyspnea: No Symptoms of thyroid hormone excess / deficiency: Heat intolerance: No Cold intolerance: No Diarrhea: No Constipation: No Weight loss / gain: No Anxiety: No Jitteriness: No Temors: No Palpitations: No Difficulty concentrating: No No results found for this basename: TSH TSH 4.2 08/11/09 TSH 1.7 12/10/07 ---Adequacy--- Specimen submitted is satisfactory. ---Cytopathologic Diagnosis--- Macrofollicular Pattern (see Comment). ---Comment--- Cytologic preservation: Adequate. Cellularity (follicular cells): Moderately cellular. Colloid: Moderate watery colloid. Macrophages: Abundant hemosiderin laden macrophages. Architectural pattern: Predominantly macrofollicular pattern (see note). The abundance of hemosiderin laden macrophages are consistent with recent hemorrhage. Occasional Hurthle cells are suggestive of a reactive process. Note: Compatible with a goiter/colloid nodule. ---Adequacy--- Specimen submitted is satisfactory. ---Cytopathologic Diagnosis--- * Atypical * ---Comment--- Moderately to highly cellular aspirate. Follicular epithelial [...] or a follicular neoplasm) cannot be excluded. Patient Active Problem List Diagnoses Code ??? CIS - Thyroid nodule ??? Thyroid nodule 241.0B Review of Systems See HPI. Physical Exam GENERAL: A+O x 3; Comfortable; Mood and affect appropriate. EYES: Sclera clear, no conjunctival injection; No stare, lid lag or proptosis. NECK: Trachea is midline; Thyroid not enlarged, there are bilateral palpable thyroid nodules; No cervical adenopathy. SKIN: Skin is neither fine and moist nor excessively dry; No rashes noted. NEURO: Cranial nerves grossly intact; DTRs have normal relaxation phase. EXT: Gait and station normal; No tremor; No thyroid acropachy or pretibial myedema. THYROID ULTRASOUND: Indication: Thyroid nodule Real time images of the thyroid gland were obtained using a [employer] and an HFL38/13-6 broadband linear array transducer. Right Lobe: The right lobe measures: 1.4x1.8cm and is of normal echotexture. There is an iso-echoic nodule in the right upper and mid lobe that measures: 08/01/2011 1.5x1.8x3.2cm 08/12/2009 1.5x1.7x2.5cm 08/05/2008 1.5x1.7x2.7cm 02/13/2008 1.5x1.7x2.8cm There is a small central area of likely cystic degeneration. The nodule has sharp margins; There are no intranodular calcifications; There is minimal flow on color doppler. Left Lobe: The left lobe measures: 1.3x1.2cm and is of normal echotexture. There is an iso-echoic nodule in the left lobe that measures: 08/01/2011 1.2x1.3x2.0cm 08/12/2009 1.1x1.0x1.8cm 08/05/2008 1.0x1.1x1.8cm 02/13/2008 1.0x1.2x1.9cm The nodule has sharp margins; There are no intranodular calcifications; There is minimal flow on color doppler. Assessment / Plan: 1. Thyroid nodule Right nodule cytologically benign Jan 2008. Left nodule cytology was originally atypical, but was benign on repeat. Her nodules have isoechoic and have no US risk factors. Clinically euthyroid. No compressive symptoms. Small interval change on US 01/2080 - 07/2011 Plan: RTC 2 years. 2. Hypothyroid Currently on armour. We had a long discussion regarding the merits of T4 alone vs. T4/T3 combinations (including armour thyroid). She will give some consideration to switching. documented in this encounter Plan of Treatment Not on file documented as of this encounter Visit Diagnoses Diagnosis Thyroid nodule- Primary Nontoxic uninodular goiter documented in this encounter Care Teams Master Cook Relationship Specialty Start Date End Date Rossy Marshall MD [facility] [address] [place] [address] [place] [address] PCP - General 03/15/10 11/04/14 documented as of this encounter
--- OUTSIDE RECORDS SUMMARY | 2024-05-20 16:53 | XMS_ITS | Encounter Summary ---
Author Organization [facility] Address [facility] [place] [address] Care Team Providers Care Asset Protection Agent Name Role Phone Unknown Primary Care Provider Unavailabl e Encounter Details Date Type Department Care Team (Late st Contact Info) Description 02/15/2004 Orders Only Dermatology at [place] [address] [facility] [place] [id number] Shad Guerrero MD [address], [place] [address] Social History Tobacco Use Types Packs/Day Years Used Date Smoking Tobacco: Never Assessed Sex and Gender Information Value Date Recorded Sex Assigned at Not on file Gender Identity Not on file Sexual Orientation Not on file documented as of this encounter Plan of Treatment Not on file documented as of this encounter Procedures Procedure Name Priority Date/Time Associated Diagnosis Comments SURGICAL PATHOLOGY REPORT Routine 02/15/2004 5:37 PM EDT documented in this encounter Results * Surgical Pathology Report (02/15/2004 5:37 PM EDT) Surgical Pathology Report [id number] ? Location: The signing pathologist has (i) examined the relevant preparation(s) for the specimen(s) and (ii) rendered or confirmed the diagnosis(es). . ?Pathology Surgical Pathology Final Report Clinical Information Specimen Submitted: A - (L) Mid Clavicular, excision Clinical History: Cyst: Follicular Cyst Gross Description Labeled/Fixativ e: ? Left mid clavicular, formalin. Qty/Size/Weight : ?Single, 0.7 x 0.5 x 0.3 cm. Tissue Description: ?? Intact, fong-white cyst filled with a firm, yellow ?material. Sections/Proces sing: ??Bisected. ??(T1) ??aje/SNS Microscopic Description Slides reviewed, microscopic description not recorded. Diagnosis Left mid clavicular area, excision: ??Pilar cyst. CR-0 02/16/04 DEJUAN 02/16/04 Verified by: ? Fredis Hamilton MD ?Dermatopathol ogist ?(Electronic Signature) The attending pathologist whose signature appears on this report has reviewed all diagnostic slides and has edited the gross and/or microscopic portion of the report in rendering the final pathologic diagnosis. YONAS PUGA 02/15/2004 5:37 PM EDT Shad Guerrero MD PATHOLOGY/CYTOLOGY Partha MOSCOSO YONAS PUGA documented in this encounter Visit Diagnoses Not on filedocumented in this encounter Care Teams Asset Protection Agent Relationship Specialty Start Date End Date Unknown None PCP - General 12/10/19 documented as of this encounter
--- OUTSIDE RECORDS SUMMARY | 2024-05-20 16:53 | XMS_ITS | Encounter Summary ---
Author Organization [facility] [place] [address] Care Team Providers Care Electronics Engineering Manager Name Role Phone Lisa Pearl Primary Care Provider [phone] Encounter Details Date Type Department Care Team (Late st Contact Info) Description 11/30/2015 11:00 AM EDT Office [place] [address] Tierra Delarosa MD [facility] [place] [address] Thyroid nodule Social History Tobacco Use Types Packs/Day Years Used Date Smoking Tobacco: Never Smokeless Tobacco: Never Sex and Gender Information Value Date Recorded Sex Assigned at Not on file Gender Identity Not on file Sexual Orientation Not on file documented as of this encounter Last Filed Vital Signs Vital Sign Reading Time Taken Comments Blood Pressure 113/82 11/30/2015 11:01 AM EDT Pulse 84 11/30/2015 11:01 AM EDT Temperature - - Respiratory Rate - - Oxygen Saturation - - Inhaled Oxygen Concentration - - Weight 48.1 kg (106 lb) 11/30/2015 11:01 AM EDT Height 152.4 cm (5') 11/30/2015 11:01 AM EDT Body Mass Index 20.7 11/30/2015 11:01 AM EDT documented in this encounter Progress Notes * Tierra Delarosa MD - 11/30/2015 11:00 AM EDT Images from the original note were not included. Endocrine Clinic Name: Annette Hernández : 1975 PCP: DENA LOCKE Provided by: Tierra Delarosa MD, PhD, FACE Date: 11/30/2015 Reason for visit: Endocrine visit: Annette Hernández is a 40 y.o. year old female who presents for [...] No Weight loss / gain: gained wt 1 lb over a year, stable at 105-106 lbs Anxiety: No Jitteriness: No Tremors: No Palpitations: No Difficulty concentrating: No Review of Systems See HPI. All other systems negative. PMH: Patient Active Problem List Diagnosis Code ??? CIS - Thyroid nodule ??? Thyroid nodule E04.1 Current Outpatient Prescriptions on File Prior to Visit Medication Sig Dispense Refill ??? busPIRone (BUSPAR) 5 mg Tablet Take 5 mg by mouth 2 times daily. 1 ??? sertraline (ZOLOFT) 50 mg tablet Take 50 mg by mouth daily. ??? BETAMETHASONE DIPROPIONATE TOP ??? triamcinolone (NASACORT) 55 mcg nasal inhaler 2 sprays by Nasal route daily as needed. No current facility-administered medications on file prior to visit. Allergy: Allergies Allergen Reactions ??? Pcn [Penicillins] Rash ??? Milk Family History: +Graves' disease Social History: Social History Substance Use Topics ??? Smoking status: Never Smoker ??? Smokeless tobacco: Never Used ??? Alcohol use None Physical Exam BP 113/82 Pulse 84 Ht 152.4 cm (5') Wt 48.1 kg (106 lb) BMI 20.7 kg/m2 GENERAL: A+O x 3; Comfortable; Mood [...] pretibial myedema. THYROID / NECK ULTRASOUND: Date: 11/30/2015 Indication: Thyroid nodule follow up Real time images of the neck were obtained using a [employer] US machine and an HFL38/13-6 broadband linear array transducer. All measurements are given as AP x Transverse x Longitudinal Right Lobe: The right lobe measures: 1.7x2.5x2.8 cm and is of normal echotexture. There is an iso-echoic nodule in the right upper and mid lobe that measures: 11/30/15: 1.5x2.2x2.8 cm 11/05/14: 1.7x2.0x2.9 cm 10/2013: 1.5 x 2 x 2.9 cm 08/01/2011 1.5x1.8x3.2cm 08/12/2009 1.5x1.7x2.5cm 08/05/2008 1.5x1.7x2.7cm 02/13/2008 1.5x1.7x2.8cm There is a small central area of likely cystic degeneration. The nodule has sharp margins; There are no intranodular calcifications; There is minimal flow On doppler. Left Lobe: The left lobe measures: 1.2x1.6x2.9 cm and is of normal echotexture. There is an mixed nodule with cystic degeneration occupying about 30% and solid part is iso-echoic in the left lobe that measures: 11/30/15: 1.1x1.2x2.0 cm 11/05/14: 1.2x1.4x2.4 cm 10/2013: [...] cystic degeneration, both with benign appearance and benign FNA previously. ASSESSMENT / PLAN: Bilateral thyroid nodules of [...] dose. 2. Hypothyroid : currently on levothyroxine 50 mcg qd and has been doing well. To continue the samedose (recent TSH was 1.91 in at [facility]). Dose adjustments by PCP to keep TSH in low normal range of 1.0-2.0 or <2.5 if possible for nodule suppression. Plan: - TSH next year - Adjust T4 dose PRN. Goal TSH around the low end of lower limit of normal range (1.0-2.0 and <2.5 if possible for nodule suppression without causing hyperthyroid). - To check lab for TSH with PCP in 6-12 months locally and adjust LT4 dose as indicated - RTC 2 yrs & will recheck US for the nodule size to ensure stability or reduce in size with higher dose of LT4 to keep TSH 1.0-2.0 range for her. TIERRA DELAROSA MD documented in this encounter Miscellaneous Notes * Addendum Note - Tierra Delarosa MD - 11/18/2017 10:59 AM EDTAddended by: TIERRA DELAROSA on: 11/18/2017 10:59 AM Modules accepted: Orders documented in this encounter Plan of Treatment Not on file documented as of this encounter Results * Vitamin D, 25-Hydroxy (11/22/2017 2:02 PM EDT) Vitamin D Total 25 OH 43 30 - 100 ng/mL [facility] Comment: Deficient <10 ng/mL Insufficient 10 to 29 ng/mL Sufficient 30 to 100 ng/mL Potential Intoxication >100 ng/mL According to the US National Osteoporosis Foundation, Vitamin D concentrations >30 ng/mL are sufficient to protect bone health. ??The National Kidney Foundation has similarly stated that patients with Vitamin D concentrations <30ng/mL should be considered to be insufficient or deficient. http://[employer]/nkf-guidelines http://[employer]/nejm-VitD The [employer] Vitamin D Immunoassay detects both 25-OH Vitamin D2 and 25-OH Vitamin D3, but only a total Vitamin D concentration is reported. Blood specimen (specimen) 11/22/2017 2:02 PM EDT 11/23/2017 7:11 AM EDT Narrative Resulting Agency Comment Spec In Lab Tierra Delarosa MD CHEMISTRY ORDERAB LES [facility] [place] [address] * TSH (11/22/2017 2:02 PM EDT) Thyroid Stimulating Hormone 1.62 0.27 - 4.20 mlU/ML [facility] Blood specimen (specimen) 11/22/2017 2:02 PM EDT 11/22/2017 2:07 PM EDT Narrative Resulting Agency Comment Spec In Lab Tierra Delarosa MD CHEMISTRY ORDERAB LES [facility] [place] [address] documented in this encounter Visit Diagnoses Diagnosis Thyroid nodule Nontoxic uninodular goiter documented in this encounter Care Teams Electronics Engineering Manager Relationship Specialty Start Date End Date Lisa Pearl PA [address] [place] [address] PCP - General Family Medicine 11/30/15 12/09/19 documented as of this encounter
--- OUTSIDE RECORDS SUMMARY | 2024-05-20 16:53 | XMS_ITS | Encounter Summary ---
Author Organization [facility] Address [address] [place] [address] Care Team Providers Care Belt Knife Feeder Name Role Phone Unavailable Primary Care Provider Unavailabl e Encounter Details Date Type Department Care Team (Late st Contact Info) Description 05/15/2012 Results Only [facility] [phone] Kamlesh Gupta MD [address] [place], [place] [id number] Social History Tobacco Use Types Packs/Day Years [...] Diagnosis Comments PAP TEST- RESULT ONLY Routine 05/15/2012 0:00 EST documented in this encounter Results * PAP TEST- RESULT ONLY (05/15/2012 0:00 EST) Pathology Report: CYTOPATHOLOGY REPORT Reports generated via electronic interface contain original data; however they are lacking the format of the original report. Caution should be taken when reading/interpreti ng unformatted reports. Name: ? SANDY ANNETTE Candida ? Accession #: ? [id number] : ? 1975 (Age: 37) ??F ?Collect Date: ? 05/15/2012 Location: ? [facility] ? Receive Date: ? 05/16/2012 Provider: ?KAMLESH GUPTA MD Copy to: ? Specimen/Source: ?Pap Test, Source Not Provided, ThinPrep Imaging System with manual evaluation Last Menstrual Period: ? 05/03/12 Other: ? Additional clinical information: no abnormal paps ever, HPV- 01/29 ? SPECIMEN ADEQUACY ? Satisfactory for Evaluation - transformation zone component present GENERAL CATEGORIZATION ? Negative for Intraepithelial Lesion or Malignancy ? Document reviewed and electronically signed by: ? Albert Blankenship, GUERAD(ASCP) ? Report Date: ??05/22/2012 16:16 End of Report [facility] 05/15/2012 05/16/2012 us Kamlesh Gupta MD PATHOLOGY ORDERABLES Final Resul t [facility] [address] [place] [address] documented in this encounter Visit Diagnoses Not on filedocumented in this encounter
--- OUTSIDE RECORDS SUMMARY | 2024-05-20 16:53 | XMS_ITS | Encounter Summary ---
Author Organization [facility] Address [address] [place] [address] Care Team Providers Care Machine Shorthand Teacher Name Role Phone Unavailable Primary Care Provider Unavailabl e Encounter Details Date Type Department Care Team (Late st Contact Info) Description 10/19/2006 Results Only [place] [facility] [address] [place] [address] Nelly Dorman, [address] [place] [address] Social History Tobacco Use Types [...] Priority Date/Time Associated Diagnosis Comments CYTOPATHOLOGY Routine 10/19/2006 0:00 EDT documented in this encounter Results * CYTOPATHOLOGY (10/19/2006 0:00 EDT) Pathology Report: CYTOPATHOLOGY REPORT Reports generated via electronic interface contain original data; however they are lacking the format of the original report. Caution should be taken when reading/interpreti ng unformatted reports. Name: ? ANNETTE HERNÁNDEZ ? Accession #: ? [id number] : ? 1975 (Age: 31) ??F ?Collect Date: ? 10/19/2006 Location: ? [facility] ? Receive Date: ? 10/23/2006 Provider: ?NELLY DORMAN BUTTON BUTTONHOLE MARKER Copy to: ? Specimen/Source: ?ThinPrep Pap Test, Cervix/Endocervix, processed on [employer] ThinPrep Imaging System, with manual evaluation Last Menstrual Period: ? 09/25/06 Other: ? HPVA - HPV testing requested if ASC-US on the current ThinPrep Pap test. ? SPECIMEN ADEQUACY ? Satisfactory for Evaluation - transformation zone component present GENERAL CATEGORIZATION ? Negative for Intraepithelial Lesion or Malignancy ? Document reviewed and electronically signed by: ? GUERDA Magdaleno(ASCP) ? Report Date: ??10/31/2006 09:55 End of Report [facility] 10/19/2006 10/23/2006 us Nelly Dorman BUTTON BUTTONHOLE MARKER PATHOLOGY ORDERABLES Final R esult [facility] [address] [place] [address] documented in this encounter Visit Diagnoses Not on filedocumented in this encounter
--- OUTSIDE RECORDS SUMMARY | 2024-05-20 16:53 | XMS_ITS | Encounter Summary ---
Author Organization [facility] Address [address] [place] [address] Care Team Providers Care Veterinary Poultry Inspector Name Role Phone Unavailable Primary Care Provider Unavailabl e Encounter Details Date Type Department Care Team (Late st Contact Info) Description 08/18/2005 Results Only [facility] - [facility] [address] [place] [address] Nelly Dorman, [address] [place] [address] Social History Tobacco Use Types [...] Priority Date/Time Associated Diagnosis Comments CYTOPATHOLOGY Routine 08/18/2005 0:00 EDT documented in this encounter Results * CYTOPATHOLOGY (08/18/2005 0:00 EDT) Pathology Report: CYTOPATHOLOGY REPORT Reports generated via electronic interface contain original data; however they are lacking the format of the original report. Caution should be taken when reading/interpreti ng unformatted reports. Name: ? ANNETTE HERNÁNDEZ ? Accession #: ? [id number] : ? 1975 (Age: 30) ??F ?Collect Date: ? 08/18/2005 Location: ? [facility] ? Receive Date: ? 08/21/2005 Provider: ?NELLY DORMAN CUFF FOLDER Copy to: ? Specimen/Source: ?ThinPrep Pap Test, Cervix/Endocervix, processed on [employer] ThinPrep Imaging System, with manual evaluation Last Menstrual Period: ? 04/20/04 Hormonal/Contracep tive Status: ? Yes: Progestin only pill Other: ? HPVA - HPV testing requested if ASC-US on the current ThinPrep Pap test. ? SPECIMEN ADEQUACY ? Satisfactory for Evaluation - transformation zone component present GENERAL CATEGORIZATION ? Negative for Intraepithelial Lesion or Malignancy ? Document reviewed and electronically signed by: ? GUERDA Matos(ASCP) ? Report Date: ??08/23/2005 08:34 End of Report [facility] 08/18/2005 08/21/2005 us Nelly Dorman CUFF FOLDER PATHOLOGY ORDERABLES Final R esult Performing Organization Address City/State/[facility] Co de Phone Number [facility] [address] [place] [address] documented in this encounter Visit Diagnoses Not on filedocumented in this encounter
--- OUTSIDE RECORDS SUMMARY | 2024-05-20 16:53 | XMS_ITS | Referral Summary ---
Author Organization [facility] Address [address] [place] [address] Care Team Providers Care Undercoater Name Role Phone Unknown, Provider Primary Care [...] Orientation Not on file Plan of Treatment Not on file Insurance [facility] Care Teams Undercoater Relationship Specialty Start Date End Date Unknown, Provider, PCP - General 02/25/15
--- OUTSIDE RECORDS SUMMARY | 2024-05-20 16:53 | XMS_ITS | Encounter Summary ---
Author Organization [facility] Address [address] [place] [address] Care Team Providers Care Coil Tester Name Role Phone Unavailable Primary Care Provider Unavailabl e Encounter Details Date Type Department Care Team (Late st Contact Info) Description 06/22/2003 Results Only [facility] - Maple conversion [address] [place] [address] Berta Denson NP Social History Tobacco Use [...] Priority Date/Time Associated Diagnosis Comments CYTOPATHOLOGY Routine 06/22/2003 0:00 EST documented in this encounter Results * CYTOPATHOLOGY (06/22/2003 0:00 EST) Pathology Report: CYTOPATHOLOGY REPORT Reports generated via electronic interface contain original data; however they are lacking the format of the original report. Caution should be taken when reading/interpreti ng unformatted reports. Name: ? ANNETTE HERNÁNDEZ ? Accession #: ? [id number] : ? 1975 (Age: 28) ??F ?Collect Date: ? 06/22/2003 Location: ? [facility] ? Receive Date: ? 06/24/2003 Provider: ?BERTA DENSON AUTOMATION ENGINEER Copy to: ? Specimen/Source: ?ThinPrep Pap Test, Cervix/Endocervix Last Menstrual Period: ? 05/27 Hormonal/Contracep tive Status: ? Oral contraceptives ? SPECIMEN ADEQUACY ? Satisfactory for Evaluation - transformation zone component present GENERAL CATEGORIZATION ? Negative for Intraepithelial Lesion or Malignancy ? Document reviewed and electronically signed by: ? Reba Engle, GUERDA(ASCP)(IAC) ? Report Date: ??06/30/2003 11:04 End of Report [facility] 06/22/2003 06/24/2003 us Berta Denson NP PATHOLOGY ORDERABLES Final Re sult [facility] [address] [place] [address] documented in this encounter Visit Diagnoses Not on filedocumented in this encounter
--- OUTSIDE RECORDS SUMMARY | 2024-05-20 16:53 | XMS_ITS | Encounter Summary ---
Author Organization [facility] Address [facility] [place] [address] Care Team Providers Care Professional Fighter Name Role Phone Rossy Marshall MD Primary Care Provider [phone] Reason for Visit * Reason Comments Thyroid Nodule Encounter Details Date Type Department Care Team (Late st Contact Info) Description 10/30/2013 2:00 PM EDT Office [place] [address] Dev Fuentes MD [facility] [place] [address] Dev Fuentes MD Multiple thyroid nodules (Primary Dx) Discharge Disposition: Home Social History Tobacco Use Types Packs/Day Years Used Date Smoking Tobacco: Never Smokeless Tobacco: Never Sex and Gender Information Value Date Recorded Sex Assigned at Not on file Gender Identity Not on file Sexual Orientation Not on file documented as of this encounter Last Filed Vital Signs Vital Sign Reading Time Taken Comments Blood Pressure 113/69 10/30/2013 2:15 PM EDT Pulse 82 10/30/2013 2:15 PM EDT Temperature - - Respiratory Rate - - Oxygen Saturation - - Inhaled Oxygen Concentration - - Weight 49.4 kg (108 lb 12.8 oz) 10/30/2013 2:15 PM EDT Height 152.4 cm (5') 10/30/2013 2:15 PM EDT Body Mass Index 21.25 10/30/2013 2:15 PM EDT documented in this encounter Progress Notes * Dev Fuentes MD - 10/30/2013 4:08 PM EDT THYROID ULTRASOUND: Indication: Thyroid nodule. Interval change? Date: 10/30/2013 Comparison: Real time images of the thyroid gland were obtained using a Mobile [employer] US machine. All measurements are given as AP x Transverse x Longitudinal Right Lobe: The right lobe measures: 1.4x1.8cm and is of normal echotexture. There is an iso-echoic nodule in the right upper and mid lobe that measures: 10/2013: 1.5 x 2 x 2.9 cms 08/01/2011 1.5x1.8x3.2cm 08/12/2009 1.5x1.7x2.5cm 08/05/2008 1.5x1.7x2.7cm 02/13/2008 1.5x1.7x2.8cm There is a small central area of likely cystic degeneration. The nodule has sharp margins; There are no intranodular calcifications; There is minimal flow On doppler. Nodule# 2: There is an iso-echoic nodule just inferior and posterior to nodule #1 that measures 0.4 x 0.6 x 0.75 cms. It has sharp margins and no calcifications and minimal flow on doppler Left Lobe: The left lobe measures: 1.3x1.2cm and is of normal echotexture. There is an mixed nodule with cystic degeneration occupying about 70% and solid part is slightly hypo-echoic nodule in the left lobe. This consistency has changed from solid to majorly cystic and it measures: 10/2013: 1.2 x 1.4 x 2.5 cms 08/01/2011 1.2x1.3x2.0cm 08/12/2009 1.1x1.0x1.8cm 08/05/2008 1.0x1.1x1.8cm 02/13/2008 1.0x1.2x1.9cm The nodule has sharp margins; There are no intranodular calcifications; There is minimal flow on doppler. Lateral Neck: No morphologically abnormal lymph nodes Impression: Homogenous asymmetric thyroid gland Stable right nodule New right nodule that has no highly suspicious US features and is well under 1 cm. Left nodule has increased in size slightly and is due to cystic degeneration. Recommendation: Due to change in size of left nodule would recommend US f/u in one yr. Dev Fuentes Endocrine Staff Physician [facility] * Dev Fuentes MD - 10/30/2013 4:04 PM EDT Ms Hernández is a 38 yr old female who comes for follow up of thyroid nodules. FNA of the right nodule was benign. FNA of the left nodule yielded atypical cytology, but repeat FNA was cytologically benign. She has been doing well. Dealing with her allergies. States that they have gotten worse. She was diagnosed with allergy to PCN. She has full body of rashes. No other changes in her medical history for 2 yrs now. Thyroid Compressive symptoms: Globus sensation: No Dysphagia: No Dysphonia: No Dyspnea: No Symptoms of thyroid hormone excess / deficiency Heat intolerance: No Cold intolerance: No Diarrhea: No Constipation: No Weight loss / gain: No Anxiety: No Jitteriness: No Tremors: No Palpitations: No Difficulty concentrating: No Patient Active Problem List Diagnosis Code ??? CIS - Thyroid nodule T999.0 ??? Thyroid nodule 241.0 PSH/FH/Social/Meds/allergies: reviewed New allergy : PCN Review of Systems See HPI. All other systems negative. Physical Exam Blood pressure 113/69, pulse 82, height 152.4 cm (5'), weight 49.351 kg (108 lb 12.8 oz). GEN: A+O 3; WDWN; Comfortable; Mood and affect appropriate. EYES: BERTA; No stare, no lid lag, no conjunctival injection NECK: Trachea midline, no neck masses; Thyroid not enlarged; Non-nodular; No cervical lymphadenopathy CHEST: Clear to auscultation; No dullness to percussion CV: Regular rate and rhythm; No murmurs rubs or gallops; no peripheral edema ABD: Soft and non-tender; No masses notes MSK: Normal gait and station; No clubbing or cyanosis of digits SKIN: Intact without lesions or rashes NEURO: CN II-XII grossly intact with normal coordination, muscle strength and tone; No tremor of outstretched hands; DTRs 2+ w/ normal relaxation phase ASSESSMENT / PLAN: Thyroid nodule Right nodule cytologically benign Jan 2008. Left nodule cytology was originally atypical, but was benign on repeat. Her nodules have isoechoic and have no US risk factors. There is a slight increase in the size of her left thyroid nodule and very likely due to increase in cystic degeneration. Dr Chaney notes mentions the cystic degeneration to be small area but on today's US it is about 70% of her nodule and hence the reason that it is larger. Since it grew will repeat US in one yr. Clinically euthyroid. No compressive symptoms. 2. Hypothyroid : currently on levothyroxine and has been doing well. To continue the same dose. Dose adjustments by PCP. Dev Fuentes Endocrine Staff Physician [facility] documented in this encounter Plan of Treatment Not on file documented as of this encounter Visit Diagnoses Diagnosis Multiple thyroid nodules- Primary Nontoxic multinodular goiter documented in this encounter Care Teams Professional Fighter Relationship Specialty Start Date End Date Rossy Marshall MD [facility] [address] [place] [address] [place] [address] PCP - General 03/15/10 11/04/14 documented as of this encounter
[2024-05-20 19:14] LABS: TSH (W/Ref FT4) 1.78 uIU/mL (0.36-3.74)
[2024-05-22 10:16] LABS: Cyclic Citrullinated Peptide <2.5 U/mL (<5.0)
== END 2024-05-20 16:47 | disposition home or self-care (01) ==
LOC: NCHCN 16:46
PROVIDERS: PCP Physician Assistant Medical; Visit Provider Physician Assistant Medical
DX: E03.9 Hypothyroidism, unspecified (principal); M54.50 Low back pain, unspecified
CPT/HCPCS: 86200; 84443

== ENCOUNTER 2024-05-28 00:24 | Outpatient (CLI) | payer OTHER, SELFPAY ==
--- NOTE | 2024-05-28 | DI.US_ITS ---
Exam(s) US PELVIS TRANSVAGINAL EXAM: US PELVIS TRANSVAGINAL CLINICAL HISTORY: Abnormal uterine and vaginal bleeding, N93.9 TECHNIQUE: Transabdominal and transvaginal imaging was performed using standard protocol. COMPARISON: US US PELVIS TRANSVAGINAL from 02/10/2020 US US PELVIS TRANSVAGINAL from 05/19/2020 FINDINGS: Bladder is unremarkable. UTERUS: Anteverted. 7.2 x 2.9 x 4.0 cm Endometrium: 2 mm. IUD noted appropriately positioned within the endometrium. Myometrium: Unremarkable. Cervix: Unremarkable. OVARIES: Right: Cyst or mass: None. Left: Cyst or mass: 2.0 x 1.6 x 1.4 centimeter exophytic cyst/dominant follicle. DOPPLER: Color: Symmetric and uniform flow to both ovaries. No hyperemia. CUL-DE-SAC: Free fluid: None. IMPRESSION: 1. Normal-appearing uterus with endometrial stripe within normal limits. 2. Unremarkable bilateral ovaries. 2 centimeter exophytic cyst versus dominant follicle the left ovar y. DATA REPOSITORY:
--- NOTE | 2024-05-28 11:18 | DI.RAD_ITS ---
Exam(s) XR LUMBAR SPINE COMPLETE EXAM: XR LUMBAR SPINE COMPLETE CLINICAL HISTORY: LBP, M54.50. TECHNIQUE: 2D digital imaging was performed of the lumbar spine. Five images were obtained. AP, la teral, right oblique, left oblique and L5-S1 spot views were obtained. COMPARISON: No exams were available for comparison FINDINGS: BONES: No fracture or destructive lesion. Vertebral bodies are unremarkable. No facet hypertrophy stefani ntified. DISKS: There is mild disc space narrowing at L2-3 and moderate disc space narrowing at L5-S1. ALIGNMENT: There is L5 spondylolysis. There is grade 2 spondylolisthesis of L5 on S1. SOFT TISSUE: There is an IUD in the pelvis. IMPRESSION: 1. Mild degenerative changes seen in the lumbar spine. 2. L5 spondylolysis and grade 2 spondylolisthesis of L5 on S2. DATA REPOSITORY: RADIATION DOSE DELIVERED:
== END 2024-05-28 00:44 ==
LOC: DI 00:24
PROVIDERS: PCP Physician Assistant Medical; Visit Provider Physician Assistant Medical
DX: M43.17 Spondylolisthesis, lumbosacral region (principal); N93.9 Abnormal uterine and vaginal bleeding, unspecified
CPT/HCPCS: 72110; 76830; 76856

== ENCOUNTER 2024-07-17 11:56 | Emergency (ER) | payer OTHER, SELFPAY ==
[2024-07-17 12:05] VITALS: BP 144/85; PULSE 73; RESP 16; TEMP 37.2; O2SAT 99
--- NOTE | 2024-07-17 12:15 | DI.RAD_ITS ---
Exam(s) XR PELVIS AP EXAM: XR PELVIS AP CLINICAL HISTORY: Left hip pain. TECHNIQUE: 2D digital imaging was performed. COMPARISON: No exams were available for comparison FINDINGS: Single AP view No evidence of pelvic nor hip fracture. Bone density normal. No osseous lesions. IUD noted in the central pelvis IMPRESSION: No acute osseous findings in the pelvis and hips. DATA REPOSITORY: RADIATION DOSE DELIVERED:
--- NOTE | 2024-07-17 12:15 | DI.RAD_ITS ---
Exam(s) XR FEMUR LT EXAM: XR FEMUR LT CLINICAL HISTORY: Left hip pain. TECHNIQUE: 2D digital imaging was performed. COMPARISON: No exams were available for comparison FINDINGS: Two views No evidence hip nor femur fracture. No hip joint space narrowing. Bone density in the left femur is normal and there are no osseous lesions nor abnormal soft tissue densities. Partially visualized kn ee appears unremarkable. IMPRESSION: No significant radiographic findings in the left femur. DATA REPOSITORY: RADIATION DOSE DELIVERED:
--- NOTE | 2024-07-17 13:07 | ED.GENADUL_ITS ---
Discharge Plan Disposition Patient Disposition: Home Discharge Details Clinical Impression: Acute pain of left hip Primary Care Provider: Lisa Pearl ED Provider: Rojas Rincon Home Meds and New Rx's Prescriptions: Continued levothyroxine [Synthroid] 50 mcg tablet 50 mcg PO DAILY buspirone 7.5 mg tablet 7.5 mg PO BID cholecalciferol (vitamin D3) 1,000 unit capsule 1,000 unit PO DAILY sertraline [Zoloft] 50 mg tablet 50 mg PO HS Mirena 21 mcg/24 hours (8 yrs) 52 mg intrauterine device 1 device intrauterine ONCE Rx Instructions: as a single dose trazodone 50 mg tablet 25 mg PO QHS PRN (Reason: sleep) Qty: 1 0RF acetaminophen 500 mg tablet 1,000 mg PO TID Qty: 90 0RF Discharge Instructions Instructions: Hip Pain ED Additional Instructions: You are seen in the emergency department for your hip pain. You are x-ray showed no sign of any fractures. As we discussed if you develop numbness or tingling in your foot or if you develop worsening pain please return to the emergency department. Otherwise you may bear weight as tolerated. You may attempt treatments afternoon with ice for tenderness on 2 minutes off. For your pain please take medications as follows: 1. Take acetaminophen (Tylenol), 1,000 mg (two 500 mg tabs) every 6 hours [2. Take ibuprofen (Advil), 400 mg every 6 hours.] Discharge Data Discharge Date/Time-TO BE ENTERED AT DEPARTURE: 07/17/24 13:37 HPI General Date/Time Provider Initiated Documentation: 07/17/24 12:28 . HPI Narrative: MDM Primary survey intact. Reassuring shock index. Secondary survey patient is mild tenderness to her left hip but fortunately reassuring x-rays for which patient will be discharged with empiric trial of expectant outpatient management. Based on low mechanism of fall the patient's age I do not feel that she requires a more sensitive study with CT scan. If her pain worsens we discussed that she should return to the ED. At the moment she has no signs of compartment syndrome. She has intact sensation and motor function in her distal left lower extremity and no back pain so I am not suspicious for any spinal cord impingement. No history of malignancy to suggest increased risk for pathological fracture. No preceding chest pain to suggest ACS. No shortness of breath to suggest PE. No trauma to chest to suggest pneumothorax I did not obtain a chest x-ray. No head strike making my suspicion low for intracranial hemorrhage. I did provide the patient with a handwritten work note offering her the day off tomorrow if she did not feel off or working. I also advised her that if she was able to control her pain with acetaminophen ibuprofen and using ice and 20 minutes on and 20 minutes off overnight that she would not be restricted and could certainly go to work if she felt up for it. She understood her return indications and was discharged with empiric trial of expectant outpatient management. HPI This is a 49-year-old female not on any anticoagulants arrived to the emergency department via private vehicle in setting of left hip pain. Patient works at a [employer]. She was reportedly knocked over intermittently by a shopping cart. She fell onto her left hip. She has been able to bear weight and been able to walk. Her work urged her to come to the emergency department to be evaluated. She is not anticoagulated. She denies any preceding chest pain dizziness and syncope. She is not short of breath. She has not been nauseous nor vomiting. Denies back and chest pain. She was in her usual state of health earlier today with no fever chills nausea or vomiting. Exam General: Well-appearing in no acute distress speaking in complete sentences. Head: Normocephalic, atraumatic. Eye: Extraocular eye movements intact. No conjunctival injection. No scleral icterus. Ear, nose, mouth, throat: Grossly normal inspection. Normal voice, handling secretions normally. Neck: Trachea midline. Cardiovascular: Well-perfused distal extremities. Respiratory: Nonlabored respiration. Gastrointestinal: Nondistended abdomen. Musculoskeletal: No edema. Moving all 4 extremities spontaneously. Left hip with no signs of trauma. Patient does have some tenderness to direct palpation on the posterior aspect of her left proximal thigh. No ecchymosis. No lacerations. Stable pelvis. Patient can move her left hip with full range of motion. 5 out of 5 left lower extremity strength in dorsi and plantarflexion. Sensation intact in the left foot. Nontender mid thigh distal thigh knee tibia- fibula and ankle and foot on the left. Skin: Normal for age and race, grossly normal temperature and turgor. No acute rash. Neurologic: Alert and appropriate, no apparent acute deficits. Psychiatric: Mood and manner are appropriate. Grooming and personal hygiene are appropriate. Related Data Home Medications ?Medication ?Instructions ?Recorded ?Confirmed buspirone 7.5 mg tablet 7.5 mg PO BID 03/03/19 07/17/24 cholecalciferol (vitamin D3) 25 1,000 unit PO DAILY 03/03/19 07/17/24 mcg (1,000 unit) capsule levothyroxine 50 mcg tablet 50 mcg PO DAILY 03/03/19 07/17/24 (Synthroid) sertraline 50 mg tablet (Zoloft) 50 mg PO HS 03/03/19 07/17/24 levonorgestrel 21 mcg/24 hr (up to 1 device intrauterine ONCE 08/02/22 07/17/24 8 years) 52 mg intrauterine device (Mirena) trazodone 50 mg tablet 25 mg (1/2 x 50 mg) PO QHS PRN 08/02/22 07/17/24 sleep #1 tab acetaminophen 500 mg tablet 1,000 mg (2 x 500 mg) PO TID #90 12/06/22 07/17/24 tabs Previous Rx's ?Medication ?Instructions ?Recorded trazodone 50 mg tablet 25 mg (1/2 x 50 mg) PO QHS PRN 08/02/22 sleep #1 tab acetaminophen 500 mg tablet 1,000 mg (2 x 500 mg) PO TID #90 12/06/22 tabs Allergies Allergy/AdvReac Type Severity Reaction Status Date / Time amoxicillin (From Augmentin) AdvReac Unknown Hives Verified 07/17/24 12:12 clavulanic acid (From AdvReac Unknown Hives Verified 07/17/24 12:12 Augmentin) levofloxacin AdvReac Unknown Hives Verified 07/17/24 12:12 cats Allergy Wheezing Uncoded 07/17/24 12:12 Seasonal Allergy Wheezing Uncoded 07/17/24 12:12 General Stated Complaint: Orthopedic DERICK: 4 Course Vital Signs Vital signs: Vital Signs Temperature 37.2 C 07/17/24 12:05 Pulse 73 07/17/24 12:05 Respiratory Rate 16 07/17/24 12:05 Blood Pressure 144/85 H 07/17/24 12:05 Pulse Oximetry 99 07/17/24 12:05 Temperature 37.2 C 07/17/24 12:05 Temperature Source Oral 07/17/24 12:05 Pulse 73 07/17/24 12:05 Respiratory Rate 16 07/17/24 12:05 Blood Pressure 144/85 H 07/17/24 12:05 Blood Pressure Position Sitting 07/17/24 12:05 Pulse Oximetry 99 07/17/24 12:05 Oxygen Delivery Method Room Air 07/17/24 12:05 Oxygen Flow Rate 0 07/17/24 12:05 Pain Level 6 07/17/24 12:05 Medical Decision Making Quality:SDOH Health Related Social Needs: No Data to Display PFSH All Active Problems (Updated 07/17/24 @ 13:08 by Rojas Rincon MD) Acute pain of left hip (Acute) Trigger finger, left middle finger (Acute) s/p trigger finger release DOS: 12/06/22 Trigger finger, right ring finger (Acute) Trigger finger, right middle finger (Acute) Rectal lesion (Acute) Internal hemorrhoids (Acute) Phase of life problem (Acute) Vitamin D deficiency (Acute) Hypothyroidism (Chronic) Depressive disorder (Acute) Irritable bowel syndrome (Chronic) Psoriasis (Chronic) Multiple thyroid nodules (Acute) Anal fistula (Acute) Postop check (Acute) Irregular menstruation, unspecified (Acute) Migraine with aura (Acute) Thickened endometrium (Acute) Right carpal tunnel syndrome (Acute) Medical History Hx of thyroid nodule H. pylori infection Surgical History History of colonoscopy Family History Father Hypertension Mother Breast cancer Maternal Grandmother Thyroid disorder Social History Smoking/Tobacco Use Status: Never Smoking risk assessment performed?: Yes Alcohol Intake: never Drug use: Never Substance use type: does not use Housing: house Current gender identity: female Do you feel safe at home: Yes Do you feel safe in your relationship?: Yes
== END 2024-07-17 13:37 | disposition home or self-care (01) ==
PROVIDERS: Emergency Provider Emergency Medicine; PCP Physician Assistant Medical
DX: M25.552 Pain in left hip (principal)
CPT/HCPCS: 73552; 99283; 72170

== ENCOUNTER 2024-09-08 18:27 | Outpatient (REF) | payer OTHER, SELFPAY ==
[2024-09-08 18:34] LABS: Calculated LDL 121 mg/dL (<100); Cholesterol 194 mg/dL (<200); HDL Cholesterol 65 mg/dL (>or=50); Triglyceride 42 mg/dL (<150)
[2024-09-08 18:35] LABS: Hemoglobin A1C 5.3 % (<5.7)
== END 2024-09-08 18:28 | disposition home or self-care (01) ==
LOC: NCHCN 18:27
PROVIDERS: PCP Physician Assistant Medical; Visit Provider Physician Assistant Medical
DX: Z13.6 Encounter for screening for cardiovascular disorders (principal); Z13.1 Encounter for screening for diabetes mellitus
CPT/HCPCS: 80061; 83036

== ENCOUNTER 2024-09-23 06:53 | Day surgery (SDC) | payer OTHER, SELFPAY ==
--- NOTE | 2024-09-22 17:09 | ANES.PREOP_ITS ---
General Info Date of Service Date Performed: 09/23/24 Height: 5 ft Weight: 54.885 kg Body Mass Index (BMI): 23.6 Surgical Procedure: Operation Date: 09/23/24 08:20 Proposed Procedure Side Surgeon elaine Shea MD Meds Allergies and Home Medications Allergies Allergy/AdvReac Type Severity Reaction Status Date / Time amoxicillin (From Augmentin) AdvReac Unknown Hives Verified 09/23/24 07:14 clavulanic acid (From AdvReac Unknown Hives Verified 09/23/24 07:14 Augmentin) levofloxacin AdvReac Unknown Hives Verified 09/23/24 07:14 cats Allergy Wheezing Uncoded 09/23/24 07:14 Seasonal Allergy Wheezing Uncoded 09/23/24 07:14 Home Medication ?Medication ?Instructions ?Recorded buspirone 7.5 mg tablet 7.5 mg PO BID 03/03/19 cholecalciferol (vitamin D3) 25 1,000 unit PO DAILY 03/03/19 mcg (1,000 unit) capsule levothyroxine 50 mcg tablet 50 mcg PO DAILY 03/03/19 (Synthroid) sertraline 50 mg tablet (Zoloft) 50 mg PO HS 03/03/19 levonorgestrel 21 mcg/24 hr (up to 1 device intrauterine ONCE 08/02/22 8 years) 52 mg intrauterine device (Mirena) trazodone 50 mg tablet 25 mg (1/2 x 50 mg) PO QHS PRN 08/02/22 sleep #1 tab bisacodyl 5 mg tablet,delayed 5 mg PO ONCE #4 tabs 09/18/24 release (Dulcolax (bisacodyl)) polyethylene glycol 3350 17 17 g PO ONCE #238 grams 09/18/24 gram/dose oral powder Current Visit Medications: Current Medications Generic Name Dose Route Start Last Admin Trade Name Freq PRN Reason Stop Dose Admin Ringer's Solution 1,000 mls @ 80 mls/hr 09/23/24 06:00 IV 09/23/24 23:59 INFUSION MARTI IV Miscellaneous Supplies 1 each 09/23/24 06:00 Iv Access IV 09/23/24 23:59 DIRECTED MARTI Sodium Chloride 0 ml 09/23/24 06:00 Normal Saline Flush 10 Ml Syr IV 09/23/24 23:59 PRN PRN Sodium Chloride 0 ml 09/23/24 06:00 Normal Saline 10 Ml Vial IJ 09/23/24 23:59 DIRECTED PRN Sterile Water 0 ml 09/23/24 06:00 Water,Injection,Sterile 10 Ml Vial IJ 09/23/24 23:59 DIRECTED PRN PFSH Active Problems Active Problems: Problem Status Onset Code Postprandial abdominal bloating Acute R14.0 Multiple thyroid nodules Acute E04.2 Psoriasis Chronic L40.9 Depressive disorder Acute F32.9 Hypothyroidism Chronic E03.9 Vitamin D deficiency Acute E55.9 Internal hemorrhoids Acute K64.8 Medical History Medical History (Updated 09/23/24 @ 08:03 by Jason Shea MD) Phase of life problem Postop check Irregular menstruation, unspecified Migraine with aura Thickened endometrium Right carpal tunnel syndrome Anal fistula Irritable bowel syndrome 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 states it has cleared up Rectal lesion Trigger finger, right middle finger Trigger finger, right ring finger Hx of thyroid nodule H. pylori infection Surgical History Surgical History S/P anal fissurectomy Trigger finger, left middle finger s/p trigger finger release DOS: 12/06/22 History of colonoscopy (~12/07/16) [facility], hyperplastic polyp per referral Tobacco Smoking/Tobacco Use Status: Never Passive smoking exposure: No Alcohol Alcohol Intake: never Substance Use Substance use: Never Substance use type: does not use Vital Signs and Lab Results Vital Signs Most Recent Vital Signs in EMR: Temp Pulse Resp BP Pulse Ox 36.3 C L 78 18 102/77 99 09/23/24 07:07 09/23/24 07:07 09/23/24 07:07 09/23/24 07:07 09/23/24 07:07 Lab Results Blood Type / Crossmatch: No Data to Display Complete Blood Count: No Data to Display Complete Metabolic Panel: Hemoglobin A1c 5.3 % (<5.7) 09/08/24 13:15 Liver Function Panel: No Data to Display Coagulation Panel: No Data to Display Cardiac Panel: No Data to Display Arterial Blood Gas: No Data to Display Venous Blood Gas: No Data to Display Pancreas Panel: No Data to Display Thyroid Panel: No Data to Display Infectious Disease: No Data to Display Blood Cultures: No Data to Display Toxicology Panel: No Data to Display Panel: No Data to Display Anesthesia Assessment and Plan Anesthesia History Personal History: No History of Anesthesia Complications Family History: No Family History of Anesthesia Complications Exercise Tolerance Exercise Tolerance: Metabolic Equivalents>4 Cardiac & Pulmonary Exam Cardiac Exam: Normal S1/S2 Heart Sounds Pulmonary Exam: Clear Bilateral Breath Sounds Implantable Cardiac Device Does patient have a Pacemaker or an ICD?: No Airway Exam Known Difficult Airway: No Mallampati Class: 3 Mouth Opening: Normal (> 3cm) Thyromental Distance: Greater than 3 cm Neck Range of Motion: Full ROM Neck Circumference: Normal Teeth Condition: Normal Dentition ASA Classification ASA Score: ASA 2 Emergency Case?: No NPO Status NPO Status: NPO Clears >2 hours, Solids >8 hours Status Status: Not Relevant due to Medical History Anesthesia Plan Resuscitation Status: Full Code Anesthesia Technique: General Anesthesia Airway Planned: Natural Airway Monitors Used: Standard Monitors Preoperative Comments:: 49 yo female for colo Sig PMHx: hypothyroid (on replacement), depression, migraine. never smoker. Previous Anes: - anal fissure, midaz, spinal with chloro, prop sedation.
[2024-09-23 07:07] VITALS: BP 102/77; PULSE 78; RESP 18; TEMP 36.3; O2SAT 99
[2024-09-23] MEDS: Lactated Ringers 1,000 ML 80 ML IV (07:24)
--- NOTE | 2024-09-23 07:58 | W.SURGCON ---
Date of service: 09/23/24 Time of Service: 08:02 Assessment and Plan Assessment and plan (1) Encounter for screening colonoscopy: Status: Acute Assessment and plan: 49-year-old woman due for surveillance/screening colonoscopy. No increased risk factors no symptoms. Overall plan: Colonoscopy History of Present Illness Narrative: 49-year-old woman is due for a screening/surveillance colonoscopy. She had 1 colonoscopy about 10 years ago done for some abdominal discomfort and bloating. She says there were no significant findings. There is no family history of colon cancer. She has never had intra-abdominal surgery. PFSH All Active Problems (Updated 09/23/24 @ 08:03 by Jason Shea MD) Encounter for screening colonoscopy (Acute) Postprandial abdominal bloating (Acute) Multiple thyroid nodules (Acute) Psoriasis (Chronic) Depressive disorder (Acute) Hypothyroidism (Chronic) Vitamin D deficiency (Acute) Internal hemorrhoids (Acute) Medical History (Updated 09/23/24 @ 08:03 by Jason Shea MD) Phase of life problem Postop check Irregular menstruation, unspecified Migraine with aura Thickened endometrium Right carpal tunnel syndrome Anal fistula Irritable bowel syndrome 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 states it has cleared up Rectal lesion Trigger finger, right middle finger Trigger finger, right ring finger Hx of thyroid nodule H. pylori infection Surgical History S/P anal fissurectomy Trigger finger, left middle finger s/p trigger finger release DOS: 12/06/22 History of colonoscopy (~12/07/16) [facility], hyperplastic polyp per referral Family History Father Hypertension Mother Breast cancer Maternal Grandmother Thyroid disorder Social History Smoking/Tobacco Use Status: Never Smoking risk assessment performed?: Yes Alcohol Intake: never Drug use: Never Substance use type: does not use Housing: house Current gender identity: female Do you feel safe at home: Yes Do you feel safe in your relationship?: Yes Exam Narrative Exam Narrative: Gen: Non-toxic, comfortable and interactive Neuro: Alert and oriented x3 Psych: Good mood and affect. Good insight and understanding into condition. Chest: Non-labored breathing, no wheezing, no visible shortness of breath. Heart: Regular Results Last Vital Signs Temp 97.3 F L 09/23/24 07:07 Pulse 78 09/23/24 07:07 Resp 18 09/23/24 07:07 BP 102/77 09/23/24 07:07 Pulse Ox 99 09/23/24 07:07
[2024-09-23 08:01] VITALS: BMI 23.6
--- NOTE | 2024-09-23 08:04 | W.COLOREPORT ---
Date of service: 09/23/24 Time of Service: 08:04 Colonoscopy Report Procedure Description: PROCEDURES PERFORMED: 1. Colonoscopy w/ Hot snare polypectomy x1 PREOPERATIVE DIAGNOSIS: Surveillance colonoscopy POSTOPERATIVE DIAGNOSIS: Colon polyp, mild pandiverticulosis, grade 1 internal hemorrhoids SURGEON: Marlo Shea MD INDICATION FOR PROCEDURE: the patient is a 49-year-old woman due for a surveillance colonoscopy. She has no increased risk factors. No changes or acute symptoms. Chronic history of IBS. FINDINGS: Normal terminal ileum. Polyps: In the sigmoid colon a sessile 3-5 mm polyp was removed with hot snare technique. No other polyps seen or found. There are scattered, mild diverticular changes throughout the entire colon. No inflammation anywhere. Minimal/scant grade 1 internal hemorrhoids. SURVEILLANCE interval/FOLLOW-UP: Repeat in 3-10 years depending on the path results of the polyp SPECIMENS: Yes EBL: Minimal COMPLICATIONS: None QUALITY of prep: Excellent Procedure in detail: The patient gave written consent and was in agreement with the indications, the potential risks as well as the benefits of the procedure. They were taken to the endoscopy suite and laid in the left lateral decubitus position. A timeout was performed and anesthesia was administered which was tolerated well. I started the procedure. Digital rectal and visual examination was performed and grossly within normal limits. A well-lubricated flexible colonoscope was then introduced and passed without any notable difficulty all the way to the cecum identified by the ileocecal valve and the appendiceal orifice. The terminal ileum was briefly, superficially intubated and looked normal. The scope was then slowly withdrawn with the above-noted findings. The patient tolerated the procedure well and was taken to the PACU in hemodynamically stable condition.
--- NOTE | 2024-09-23 08:04 | W.PM.DSUDISC ---
Date of service: 09/23/24 Discharge Plan Disposition Patient Disposition: Home Condition: Good Discharge Details Attending Provider: Jason Shea Primary Care Provider: Lisa Pearl Home Meds and New Rx's Prescriptions: No Action levothyroxine [Synthroid] 50 mcg tablet 50 mcg PO DAILY buspirone 7.5 mg tablet 7.5 mg PO BID cholecalciferol (vitamin D3) 1,000 unit capsule 1,000 unit PO DAILY sertraline [Zoloft] 50 mg tablet 50 mg PO HS Mirena 21 mcg/24 hours (8 yrs) 52 mg intrauterine device 1 device intrauterine ONCE Rx Instructions: as a single dose trazodone 50 mg tablet 25 mg PO QHS PRN (Reason: sleep) Qty: 1 0RF bisacodyl [Dulcolax (bisacodyl)] 5 mg tablet,delayed release (DR/EC) 5 mg PO ONCE Qty: 4 0RF Rx Instructions: Take per colonoscopy instructions provided by ordering providers office polyethylene glycol 3350 17 gram/dose powder 17 g PO ONCE Qty: 238 0RF Rx Instructions: Take per colonoscopy instructions provided by ordering providers office Discharge Instructions Additional Instructions: FINDINGS: A small polyp was found and removed today. Nothing to worry about. This is why we do the colonoscopies. Depending on the type of polyp that it is when it gets tested, you may be counseled to do another colonoscopy in the soonest 3 years but more likely 7 to 10 years. You have some mild diverticular disease. This is extremely common, benign and nothing needs to be done about it. Stand Alone Forms: Anesthesia Discharge Inst., Colonoscopy Post Instructions, Elena Adame (DSU) Activity:: Activity as Tolerated Diet:: As Tolerated Discharge Orders Discharge Orders: Discharge Order (Routine); Ordered 09/23/24 Ordered By: Jason Shea DS: Diagnosis Discharge Diagnosis (1) Encounter for screening colonoscopy: Status: Acute
--- NOTE | 2024-09-23 08:40 | BOWEL_PTH ---
PATIENT: Annette Hernández LOC: [facility] U#:[id number] AGE/SX: 49/F ROOM: RE09/23/[address]: Jason Shea : 1975 BED: DIS: 09/23/2024 SPEC #: [id number] RECD: 09/23/24 12:39 STATUS: ARIANNA RE #: [id number] PORTIA: 09/23/24 08:[address]: Jason Shea DEPT: Surgical Specimen RECD BY: Lizeth Arroyo ENTERED: 09/23/24 12:40 SP TYPE: Bowel OTHR DR: Lisa Pearl Tissues: 1 - BIOPSY BOWEL Procedures: GROSS AND MICRO LEVEL 4 Comments: [id number]
[2024-09-23 08:50] VITALS: BP 98/77; PULSE 72; RESP 16; TEMP 36; O2SAT 98
--- NOTE | 2024-09-23 09:06 | W.ANESPOSTOP ---
Postoperative Evaluation Date, Time and Location Date Performed: 09/23/24 Time Performed: 09:06 Patient Location: Day [facility] Unit Vital Signs Most Recent Imported Vital Signs: Most Recent Vital Signs Temp Pulse Resp BP Pulse Ox 36 C L 72 16 98/77 L 98 09/23/24 08:50 09/23/24 08:50 09/23/24 08:50 09/23/24 08:50 09/23/24 08:50 Pain Score Most Recent Pain Score: Most Recent Pain Score Pain Level 0 09/23/24 08:50 Assessment Mental Status: Awake (Alert & Oriented to Patient Baseline) Airway and Respiratory Function: Patent airway with normal (patient baseline) respiratory exam Cardiovascular Function: Hemodynamically Stable Hydration Status: Adequately Hydrated Nausea & Vomiting: No Nausea or Vomiting Pain: Pt. Denies Any Pain Peripheral Nerve Block: Patient did not receive a nerve block
[2024-09-23 09:18] VITALS: BP 114/89; PULSE 65; RESP 16; TEMP 36; O2SAT 99
== END 2024-09-23 09:23 | disposition home or self-care (01) ==
PROVIDERS: PCP Physician Assistant Medical; Visit Provider Student in an Organized Health Care Education/Training Program
PROC: 0DJD8ZZ Inspection of Lower Intestinal Tract, Via Natural or Artificial Opening Endoscopic (ICD-10-PCS; CPT 45378; principal; 2024-09-23 08:15)
DX: Z12.11 Encounter for screening for malignant neoplasm of colon (principal); K57.30 Diverticulosis of large intestine without perforation or abscess without bleeding; K64.0 First degree hemorrhoids; D12.5 Benign neoplasm of sigmoid colon
CPT/HCPCS: 45385; 88305; J2704

== ENCOUNTER 2024-10-15 00:07 | Outpatient (CLI) | payer OTHER, SELFPAY ==
--- NOTE | 2024-10-15 | DI.MAMMO_ITS ---
Exam(s) MAMMO SCREENING EXAM: MAMMO SCREENING CLINICAL HISTORY: Mammo screening Z12.31 TECHNIQUE: Mammograms were interpreted according to the usual protocol including computer analysis with CAD system, tomosynthesis and C-view imaging. COMPARISON: 2015 through 2023 FINDINGS: The breasts are composed of heterogeneously dense fibroglandular densities, Breast Density category C. No suspicious masses or suspicious microcalcifications are seen. Benign calcifications are again noted bilaterally. No skin thickening or abnormal axillary lymph nodes are seen. There has been no significant change from prior exams. IMPRESSION: BI-RADS Category 2 - Benign Findings Yearly screening mammography is recommended. Breast Density: Category C - The breasts are heterogeneously dense, which may obscure small masses. Breast density Category C or D implies that the patient has dense breast tissue. Dense breast tissue can make it harder to find cancer on a mammogram. Dense breast tissue is also associated with an increased risk of breast cancer. This information about the result of the mammogram report was provided to the patient to raise their awareness. Use this report when you speak with the patient about their risks for breast cancer, which includes their family history. At that time, you may recommend additional screening tests (Ultrasound or MRI) as these tests may add significant information. A negative radiographic report should not delay biopsy if a dominant or clinically suspicious mass is present. Up to ten percent of cancers are not identified on mammography. A negative report may reinforce clinical impression. Adenosis and dense breasts may obscure an underlying neoplasm. False positive reports average 6 to 10%.
--- NOTE | 2024-10-15 | DI.US_ITS ---
Exam(s) US THYROID EXAM: US THYROID CLINICAL HISTORY: non-toxic multinodular goiter E04.2. TECHNIQUE: Ultrasound thyroid performed using standard protocol. COMPARISON: US US THYROID from 08/11/2021 FINDINGS: ISTHMUS: 2 mm RIGHT LOBE: Size: 5.2 by 2.0 x 3.0 cm Echogenicity: Normal. Vascularity: Normal. Nodules: Max, mostly solid nodule centrally measuring 4.1 x 1.9 x 2.7 cm. This is increased in size when compared the previous exam where it measured 3.6 x 2.0 x 2.0 cm. The nodule is circumscribed and isoechoic. There are few macrocalcifications. TR 3. FNA recommended. LEFT LOBE: Size: 4.5 x 1.8 x 1.6 cm Echogenicity: Normal. Vascularity: Normal. Nodules: Upper pole nodule measuring 2.6 x 1.4 x 1.4 cm. This has also increased in size from the prior exam where it measured 2.0 x 1.2 x 1.2 cm. It is mixed cystic and solid, isoechoic, smoothly marginated without echogenic foci. TR 2. OTHER FINDINGS: None. IMPRESSION: Mild interval increase in size of bilateral thyroid nodules. Right-sided nodule corresponds to TI-RADS 3, FNA could be considered. Left- sided nodule TR 2. DATA REPOSITORY:
== END 2024-10-15 00:27 ==
LOC: DI 00:07
PROVIDERS: PCP Physician Assistant Medical; Visit Provider Physician Assistant Medical
DX: Z12.31 Encounter for screening mammogram for malignant neoplasm of breast (principal); E04.2 Nontoxic multinodular goiter; R92.333 Mammographic heterogeneous density, bilateral breasts
CPT/HCPCS: 77063; 77067; 76536

== ENCOUNTER 2024-10-28 09:37 | Outpatient (CLI) | payer OTHER, SELFPAY ==
[2024-10-28 18:04] LABS: TSH (W/Ref FT4) 1.66 uIU/mL (0.36-3.74)
== END 2024-10-28 09:38 | disposition home or self-care (01) ==
LOC: LBO 09:38
PROVIDERS: PCP Physician Assistant Medical; Visit Provider Nurse Practitioner Women's Health
DX: R53.83 Other fatigue (principal); E03.9 Hypothyroidism, unspecified
CPT/HCPCS: 36415; 84443

== ENCOUNTER → 2025-02-24 00:45 | Outpatient (CLI) | payer OTHER, SELFPAY ==
--- NOTE | 2025-02-24 06:45 | DI.US_ITS ---
Exam(s) US NEEDLE LOCAL OTHER WO RAD EXAM: right thyroid nodule,ULTRASOUND GUIDED BX,E04.2 COMPARISON: No exams were available for comparison TECHNIQUE: Ultrasound performed using standard protocol. FINDINGS: Sonography was provided for Dr. Rojas during the performance of a right thyroid nodule biopsy. Please refer to the procedure report for complete details. DATA REPOSITORY:
--- NOTE | 2025-02-24 11:30 | PAPNONF_PTH ---
PATIENT: Annette Hernández LOC: [facility] U#:[id number] AGE/SX: 49/F ROOM: RE02/24/[address]: Etienne Rojas MD : 1975 BED: DIS: SPEC #: [id number] RECD: 02/24/25 12:38 STATUS: ARIANNA BURNETT #: [id number] PORTIA: 02/24/25 11:[address]: Etienne Rojas DEPT: [facility] Cytology RECD BY: Lizeth Arroyo ENTERED: 02/24/25 12:39 SP TYPE: MEGGAN GREEN DR: Lisa Pearl Tissues: 1 - BODY FLUID CYTO-FINE NEEDLE ASPIRATE-[facility] Procedures: BODY FLUID CYTO-FINE NEEDLE ASPIRATE-[facility] Comments: [id number] (PATH FNA CONSULT) (REFRIGERATED)
--- NOTE | 2025-02-24 11:55 | W.PROCNOTE ---
Date of service: 02/24/25 Time of Service: 11:56 Procedure Note Date of procedure: 02/24/25 Procedure: Ultrasound-guided FNA, right thyroid nodule, pathology present Surgeon/Proceduralist/Physician: Etienne Rojas Procedure Diagnosis: Right thyroid nodule Procedure Indications: The patient has a right sided thyroid nodule meeting criteria for biopsy that has increased slightly in size. Options were explained to the patient regarding further management. She elected to undergo the above procedure. Consent was sought and signed prior to the procedure. Risks including bleeding, infection, need for further treatment were discussed at length. Procedure Description: The patient was positioned in a supine position and prepped and draped in appropriate fashion. Ultrasound was used to localize the right sided thyroid nodule and then 2% lidocaine with 1/100,000 epinephrine was injected into the skin and subcutaneous tissues overlying the thyroid nodule. Using ultrasound for guidance, a 25-gauge needle was then passed into the thyroid nodule and used to perform biopsy. Pathology verified adequate cellularity, 2 additional passes were made for potential Afirma testing again under ultrasound guide. After ensuring adequate hemostasis, the patient was brought to sit, stand, and then ambulate. A sterile dressing was applied to the site. She is to remove this sterile dressing in a couple of hours and not replace it. She will call with any signs of infection or any other concerns. She had no further questions. She is comfortable with the plan.
== END ==
LOC: DI 00:45
PROVIDERS: PCP Physician Assistant Medical; Visit Provider Otolaryngology
DX: E04.2 Nontoxic multinodular goiter (principal)
CPT/HCPCS: 10005; 76942; 88104